=== PATIENT | female | born 1965 | race African-American/Black ===

== ENCOUNTER → 2016-12-19 | Day surgery (SDC) | payer OTHER ==
[2016-12-18 09:07] VITALS: BMI 25.0
[~2016-12-19] MED LIST: FLU VACC QS2017-18 36 mo. & older 0.5 ML SYRINGE IM ONE; Iopamidol 300 61% 100 ML VIAL FS ONE
[2016-12-19 08:14] VITALS: BP 144/101; TEMP 97
--- NOTE | 2016-12-19 10:33 | SPC ---
PROCEDURE: 1. Left upper extremity fistulogram. 2. Left upper extremity venogram with superior vena cavogram. INDICATIONS: Nonmaturing left dialysis fistula. FINDINGS: 1. Ultrasound was utilized to assess left upper extremity fistula. [place] fistula is seen with anas tomosis at the elbow into the brachial artery. The anastomosis is identified with ultrasound. The ve nous side just above the anastomosis was puncture under local anesthesia with micropuncture techniqu e. A 4 [place] catheter was introducer. Fistulogram was then obtained by injecting through this clay ter. Venous outflow drains into a large cephalic vein. Just above the arterial anastomosis, there is a la rge branching venous structure which is stealing outflow from the venous side and is probably inhibi ting adequate maturation. The major cephalic outflow is unremarkable in the mid humerus. The cephalic vein does bifurcate at t he humeral head and both limbs feed into the subclavian vein. The subclavian, innominate, and SVC ar e patent. The arterial anastomosis was imaged with compression and reflux. The anastomosis appears unremarkabl e. IMPRESSION: [place] fistula with cephalic vein arterial anastomosis at the brachial artery. Just above the arteri al anastomosis, a large vein arises from the venous outflow and is probably inhibiting adequate matu ration. PROCEDURE NOTE: The left upper extremity was prepped and draped in a sterile manner. The fistula was evaluated with ultrasound. Under local anesthesia, venous outflow was punctured under ultrasound guided with microp uncture technique. A 4 [place] catheter was introduced. Fistulogram and vena cavogram were obtained b y injecting through this catheter. There were no problems or complications. POS: [facility]
== END ==
LOC: SPEC 06:51
PROVIDERS: ATTEND Specialist
DX: I12.0 Hypertensive chronic kidney disease with stage 5 chronic kidney disease or end stage renal disease (principal); N18.6 End stage renal disease; M32.9 Systemic lupus erythematosus, unspecified; Z79.52 Long term (current) use of systemic steroids; Z79.899 Other long term (current) drug therapy; Z88.8 Allergy status to other drugs, medicaments and biological substances; Z99.2 Dependence on renal dialysis; Z90.49 Acquired absence of other specified parts of digestive tract; Z87.891 Personal history of nicotine dependence
CPT/HCPCS: 36901

== ENCOUNTER 2017-01-28 09:11 | Day surgery (SDC) | payer OTHER ==
--- NOTE | 2017-01-21 14:15 | HP ---
HISTORY OF PRESENT ILLNESS: Vivian Bearden is a 51-year-old black female dialyzes Friday, Friday, and Friday, 10:15 a.m. at [facility]. Patient on 05/13/2016 had a right upper arm d ialysis graft and on 05/27/2016, hemodialysis catheter initiating dialysis. On , her dialys is graft was noted to be thrombosed and a temporary femoral vein catheter placed to initiate dialysis . On 11/04/2016, she underwent placement of left IJ hemodialysis catheter as her right internal jugu lar vein outflow was occluded. She had a left arm primary fistula, inflow proximal radial artery, ou tflow cephalic vein calibrated 3.5 coronary dilator. At that operation, she was noted to have a bifu rcated cephalic vein. Retrograde antecubital vein preserved, but was fibrotic. She had communicatio n to the basilic vein, but this is secondary. The patient's fistula was not maturing as expected. S joey underwent a fistulogram on 12/19/2016 noting a bifurcated cephalic vein above the antecubital andres a. From one of the branches, she had a communicating branch to the axilla. The cephalic vein was, h owever, look good. They have tried to access her fistula unsuccessfully. Plan at this time is to un hilda regional anesthesia and block versus general anesthesia versus IV sedation local plan intraoperat geoff angiograms. Identification of the collateral cephalic vein branch above the anal fossa and ligat ion of this to facilitate maturation of the fistula. Risks and benefits explained. She consents. S joey continues to dialyze through her left IJ cuffed tunnel dialysis catheter. ALLERGIES: HUANG INHIBITORS, CLONIDINE. TOBACCO: None. ALCOHOL: None. MEDICATIONS: Tramadol, prednisone, hydralazine, nifedipine, ferrous sulfate, Coreg, Calcitriol, ator vastatin, amlodipine. PAST SURGICAL HISTORY: As noted above, dialysis access appendectomy in addition. 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 Patient fibrotic ant ecubital vein left secondary to prior access. REVIEW OF SYSTEMS: Ten point noncontributory. PHYSICAL EXAMINATION: VITAL SIGNS: 135 pounds, 57 inches, BMI 29.25, 170/96, heart rate 79, 96.8 degrees. HEENT: Unremarkable. LUNGS: Clear to auscultation. CARDIAC: Regular rate and rhythm without murmur or gallop. ABDOMEN: Soft, nontender. EXTREMITIES: Left arm fistula, good thrill and bruit. ASSESSMENT AND PLAN: 1. Dysfunctional fistula left arm, failure to mature. Will plan intraoperative angiograms and ligat ion of collaterals to facilitate maturation. She understands the risks and benefits and consents. Rowena roberts is to do as an outpatient next week. 2. Lupus. 3. Hypertension.
[2017-01-27 12:30] VITALS: BMI 29.2
[2017-01-28] MEDS ORDERED: CEFAZOLIN/Water 2 GM/20 ML SYRINGE ONE (09:50)
[2017-01-28 10:06] LABS: #Eosinphils 0.1 thou/uL (0.0-0.7); #Monocytes 0.4 thou/uL (0.11-0.59); #Neutrophils 3.6 thou/uL (1.40-6.50); %Basophils 0.4 % (0.0-1.0); %Eosinophils 2.3 % (0.0-10.0); %Lymphocytes 19.9 % (21.0-51.0); %Monocytes 8.2 % (0.0-10.0); Hematocrit 36.7 % (36.0-47.0); Mean Platelet Volume 8.4 fL (7.4-10.4); Red Blood Cell (RBC) Count 4.04 mill/uL (4.20-5.40); White Blood Cell (WBC) Count 5.2 thou/uL (4.8-10.8)
[2017-01-28] MEDS ORDERED: Fentanyl 100 MCG/2 ML VIAL ONE ×2 (10:18→13:33)
[2017-01-28] MEDS ORDERED: Midazolam HCl 2 mg/2 ml Vial ONE ×2 (10:18→13:33)
[2017-01-28 10:19] LABS: Anion Gap 13 mmol/L (10-20); BUN (Urea Nitrogen) 29 mg/dL (7.0-18.7); Calc. Creatinine Clearance 13 mL/min (70-130); Calcium 8.7 mg/dL (7.8-10.44); Carbon Dioxide 25 mmol/L (22-29); Chloride 102 mmol/L (98-107); Estimated GFR-MDRD 11
[2017-01-28] MEDS ORDERED: Ioversol 68 % 50 ML VIAL ONE (13:00)
[2017-01-28] MEDS ORDERED: Bupivacaine/Epinephrine 0.25% 30 ML VIAL ONE (13:00)
[2017-01-28] MEDS ORDERED: Heparin 10,000 UNITS/1 ML VIAL ONE (13:00)
[2017-01-28] MEDS ORDERED: Protamine Sulfate 50 MG/5 ML VIAL ONE (13:00)
[2017-01-28] MEDS ORDERED: Heparin 5,000 UNITS/ML VIAL ONE (13:00)
[2017-01-28] MEDS ORDERED: Sodium Chloride 0.9% 0 ML ONE (13:01)
[2017-01-28] MEDS ORDERED: Lidocaine 2% w/Epinephrine 1:200K 20 ML VIAL ONE ×2 (13:31→13:32)
[2017-01-28] MEDS ORDERED: Heparin 10,000 UNITS/ 10 ML VIAL ONE ×2 (15:35)
[2017-01-28] MEDS ORDERED: Bupivacaine HCl 0.5%/Epinephrine 1:200,000/PF 30 ml Vial ONE (16:26)
[2017-01-28] MEDS ORDERED: Bupivacaine PF 0.5% 30 ML VIAL ONE (16:26)
[2017-01-28] MEDS ORDERED: Propofol 200 MG/20 ML VIAL ONE (16:51)
[2017-01-28] MEDS ORDERED: Lidocaine 1% PF 5 ML VIAL ONE (16:51)
--- NOTE | 2017-01-28 17:08 | OP ---
PREOPERATIVE DIAGNOSIS: End-stage renal disease, malfunction left arm dialysis fistula. POSTOPERATIVE DIAGNOSIS: End-stage renal disease, malfunction left arm dialysis fistula. PROCEDURE: Revision of left arm dialysis fistula with ligation of collaterals and transposition of f istula laterally. Ligation of basilic vein outflow (small caliber). SURGEON: Dr. Satish Hancock. ANESTHESIA: Regional TIVA. PROCEDURE IN DETAIL: The patient was taken to the operating room where under intravenous sedation an d left arm regional anesthesia, left upper extremity was prepared with chloraprep, draped in routine fashion. Incision made from the proximal forearm up over the left upper arm carried down through the skin and subcutaneous tissue and the cephalic vein dissected free. The large branch seen on angiogr am was dissected free and laterally was ligated and divided between 2-0 silk ties. Smaller branches divided between 4-0 silk ties and clips. Basilic vein outflow seen to be small and it was ligated an d divided between 2-0 silk ties. A subcutaneous pocket created laterally to resolve tortuosity of th e cephalic vein. The vein was placed laterally in this pocket and held in place with interrupted sut ures between subcutaneous tissues anteriorly and deep of 3-0 Monocryl. Good hemostasis noted. Subcu taneous tissues approximated with 3-0 Monocryl, skin with subdermal 4-0 Monocryl and DermaGlue applie d. Henok wrap applied. The patient tolerated the procedure well.
== END 2017-01-28 15:51 | disposition home or self-care (01) ==
LOC: SDC 09:11
PROVIDERS: ATTEND Specialist
PROC: [UNRECOGNIZED PROCEDURE] (principal; 2017-01-28)
DX: T82.590D Other mechanical complication of surgically created arteriovenous fistula, subsequent encounter (principal); I12.0 Hypertensive chronic kidney disease with stage 5 chronic kidney disease or end stage renal disease; N18.6 End stage renal disease; M32.9 Systemic lupus erythematosus, unspecified; J45.909 Unspecified asthma, uncomplicated; E78.5 Hyperlipidemia, unspecified; M19.90 Unspecified osteoarthritis, unspecified site; Z99.2 Dependence on renal dialysis; Z79.891 Long term (current) use of opiate analgesic; Z79.818 Long term (current) use of other agents affecting estrogen receptors and estrogen levels; Z79.1 Long term (current) use of non-steroidal anti-inflammatories (NSAID); Z79.51 Long term (current) use of inhaled steroids; Z79.899 Other long term (current) drug therapy
CPT/HCPCS: 80048; 85025; A4216; J0670; J1644; J2001; J2250; J2704; J2720; J3010; Q9967; S0020

== ENCOUNTER 2017-02-25 12:41 | Emergency (ER) | payer OTHER ==
--- NOTE | 2017-02-25 14:56 | RAD ---
TWO VIEW CHEST: INDICATIONS: Flu-like symptoms. Cough. FINDINGS: A tunneled vascular catheter is present with the tip overlying the right atrium. There is no consoli dation or effusion. The cardiac silhouette is within normal limits in size. The osseous structures are intact. IMPRESSION: No focal consolidation. POS: [facility]
== END 2017-02-25 14:30 | disposition home or self-care (01) ==
LOC: ERS 12:41
DX: J20.9 Acute bronchitis, unspecified (principal); I10 Essential (primary) hypertension; J45.909 Unspecified asthma, uncomplicated; Z87.891 Personal history of nicotine dependence; Z79.899 Other long term (current) drug therapy
CPT/HCPCS: 71046; 87081; 87430; 87804

== ENCOUNTER 2017-04-09 10:05 | Emergency (ER) | payer OTHER ==
[2017-04-09 12:11] LABS: #Eosinphils 0.1 thou/uL (0.0-0.7); #Lymphocytes 1.2 thou/uL (1.20-3.40); #Monocytes 0.6 thou/uL (0.11-0.59); #Neutrophils 2.1 thou/uL (1.40-6.50); %Basophils 0.4 % (0.0-1.0); %Eosinophils 2.4 % (0.0-10.0); %Lymphocytes 31.2 % (21.0-51.0); Hemoglobin 12.9 g/dL (12.0-16.0); Mean Corpuscular HGB CONC 31.5 g/dL (32.0-36.0); Mean Corpuscular Hemoglobin 28.9 pg (27.0-31.0); Mean Corpuscular Volume 91.9 fl (81.0-99.0); Mean Platelet Volume 8.5 fL (7.4-10.4); Platelet Count 248 thou/uL (130-400); Red Blood Cell (RBC) Count 4.48 mill/uL (4.20-5.40)
[2017-04-09 13:00] LABS: ALT (SGPT) 15 U/L (8-55); AST (SGOT) 17 U/L (5-34); Albumin 3.2 g/dL (3.5-5.0); Alkaline Phosphatase 94 U/L (40-150); Anion Gap 16 mmol/L (10-20); BUN (Urea Nitrogen) 47 mg/dL (9.8-20.1); Bilirubin, Total 0.4 mg/dL (0.2-1.2); Calc. Creatinine Clearance 0 mL/min (70-130); Calcium 8.9 mg/dL (7.8-10.44); Carbon Dioxide 24 mmol/L (22-29); Chloride 101 mmol/L (98-107); Estimated GFR-MDRD 10; Globulin 5.1 g/dL (2.4-3.5); Glucose 80 mg/dL (70-105); Potassium 3.9 mmol/L (3.5-5.1); Protein, Total 8.3 g/dL (6.0-8.3); Sodium 137 mmol/L (136-145)
[2017-04-09] MEDS ORDERED: traMADol HCl 50 MG TAB ONE (15:57)
== END 2017-04-09 16:40 | disposition home or self-care (01) ==
LOC: ERS 10:05
DX: K43.9 Ventral hernia without obstruction or gangrene (principal); I10 Essential (primary) hypertension; J45.909 Unspecified asthma, uncomplicated; Z87.891 Personal history of nicotine dependence
CPT/HCPCS: 80053; 85025; 99284

== ENCOUNTER 2017-12-19 22:02 | Emergency (ER) | payer OTHER ==
[2017-12-19] MEDS ORDERED: Meclizine HCl 25 MG TAB ONE (22:18)
--- NOTE | 2017-12-19 22:32 | RAD ---
CHEST ONE VIEW: 12/19/17 HISTORY: Dizziness. Dyspnea. COMPARISON: 11/04/16. FINDINGS: The cardiac silhouette is magnified by projection. Pulmonary vasculature is unremarkable. Mediastinum is midline. No confluent air space consolidation or evidence of pneumothorax. IMPRESSION: No active cardiopulmonary abnormalities are demonstrated. POS: [facility]
[2017-12-19 22:37] LABS: #Eosinphils 0.1 thou/uL (0.0-0.7); #Lymphocytes 0.9 thou/uL (1.20-3.40); #Monocytes 0.6 thou/uL (0.11-0.59); #Neutrophils 3.7 thou/uL (1.40-6.50); %Basophils 0.1 % (0.0-1.0); %Eosinophils 1.7 % (0.0-10.0); %Lymphocytes 16.3 % (21.0-51.0); %Monocytes 11.5 % (0.0-10.0); %Neutrophils 70.4 % (42.0-75.0); Hemoglobin 12.6 g/dL (12.0-16.0); Mean Corpuscular Volume 93.9 fL (78.0-98.0); Platelet Count 219 thou/uL (130-400); RBC Distribution Width 14.3 % (11.5-14.5); Red Blood Cell (RBC) Count 4.21 mill/uL (4.20-5.40); White Blood Cell (WBC) Count 5.3 thou/uL (4.8-10.8)
--- NOTE | 2017-12-19 22:50 | CT ---
CT HEAD NONCONTRAST: 12/19/17 HISTORY: Headaches. COMPARISON: 03/12/16. FINDINGS: There is no evidence of acute intracranial hemorrhage or infarct. Old lacunar infarcts left basal godwin glia and periventricular white matter. There is no mass effect or shift of midline structures. IMPRESSION: Chronic type findings are stable. No acute intracranial abnormalities are demonstrated. POS: [facility]
[2017-12-19 22:57] LABS: ALT (SGPT) 26 U/L (8-55); AST (SGOT) 17 U/L (5-34); Albumin 3.5 g/dL (3.5-5.0); Alkaline Phosphatase 98 U/L (40-150); Anion Gap 14 mmol/L (10-20); BUN (Urea Nitrogen) 29 mg/dL (9.8-20.1); Bilirubin, Total 0.3 mg/dL (0.2-1.2); CK (CPK) 53 U/L (29-168); Calc. Creatinine Clearance 0 mL/min (70-130); Calcium 7.9 mg/dL (7.8-10.44); Carbon Dioxide 27 mmol/L (22-29); Chloride 102 mmol/L (98-107); Estimated GFR-MDRD 13; Globulin 3.8 g/dL (2.4-3.5); Glucose 98 mg/dL (70-105); Potassium 3.9 mmol/L (3.5-5.1); Protein, Total 7.3 g/dL (6.0-8.3); Sodium 139 mmol/L (136-145)
[2017-12-19 23:02] LABS: CKMB 1.7 ng/mL (0-6.6); Troponin I 0.014 ng/mL (< 0.028)
== END 2017-12-19 23:42 | disposition home or self-care (01) ==
LOC: ERS 22:02
DX: R42 Dizziness and giddiness (principal); J45.909 Unspecified asthma, uncomplicated; I10 Essential (primary) hypertension; F17.210 Nicotine dependence, cigarettes, uncomplicated
CPT/HCPCS: 70450; 71045; 80053; 82550; 82553; 84484; 85025; 93005

== ENCOUNTER 2018-01-21 09:11 | Inpatient (IN) | payer OTHER ==
[2018-01-21] MEDS ORDERED: traMADol HCl 50 MG TAB ONE (11:16)
--- NOTE | 2018-01-21 11:37 | RAD ---
AP CHEST: Indications: Cough. FINDINGS: There is question of hazy infiltrate in the right lower lung on this AP projection. There is no confl uent consolidation. No effusion. Heart and mediastinum unremarkable. IMPRESSION: Question hazy right lower lung infiltrate. Follow up suggested. POS: [facility]
[2018-01-21] MEDS ORDERED: Piperacillin/Tazobactam 4.5 GM VIAL ONE (14:24)
--- NOTE | 2018-01-21 15:18 | CT ---
CT ABDOMEN AND PELVIS WITH IV CONTRAST: Date: 01/21/18 HISTORY: Abdominal pain. FINDINGS: Comparison made with exam of 12/25/15. The lung bases are clear. The liver demonstrates decreased attenuation compared to the spleen, consistent with fatty infiltrati on. A tiny focus of hyperintensity is seen on the arterial phase and the right lobe of the liver, lik felisa flash-filling hemangioma. No calcified gallstones are seen. There is edema in the gallbladder wal l. The spleen, pancreas, adrenal glands, and kidneys are normal. Perirenal inflammatory changes are a gain seen, as on the previous study. A small, fat-containing upper abdominal wall hernia is noted. Th ere are vascular calcifications without evidence of aneurysmal dilatation of the abdominal aorta. The abdominal aorta is well opacified without evidence of dissection. No free air is seen. There is a sm all amount of free fluid in the pelvis. Uterus and ovaries are present. The small bowel loops are not abnormally dilated. Degenerative changes are present in the spine. IMPRESSION: 1. Fatty liver. 2. Probable gallbladder wall thickening versus edema. Evaluation with ultrasound is recommended. 3. Small amount of free fluid in the pelvis. POS: [facility]
[2018-01-21 15:43] LABS: Hemoglobin 13.2 g/dL (12.0-16.0); Mean Corpuscular HGB CONC 30.8 g/dL (32.0-36.0); Mean Corpuscular Hemoglobin 29.7 pg (27.0-31.0); Mean Corpuscular Volume 96.6 fL (78.0-98.0); Mean Platelet Volume 8.5 fL (7.4-10.4); Platelet Count 216 thou/uL (130-400); RBC Distribution Width 14.3 % (11.5-14.5); Red Blood Cell (RBC) Count 4.45 mill/uL (4.20-5.40); White Blood Cell (WBC) Count 4.2 thou/uL (4.8-10.8)
[2018-01-21 15:58] LABS: ALT (SGPT) 25 U/L (8-55); AST (SGOT) 24 U/L (5-34); Albumin 3.4 g/dL (3.5-5.0); Alkaline Phosphatase 92 U/L (40-150); Anion Gap 16 mmol/L (10-20); BUN (Urea Nitrogen) 45 mg/dL (9.8-20.1); Bilirubin, Total 0.6 mg/dL (0.2-1.2); Calc. Creatinine Clearance 0 mL/min (70-130); Calcium 8.6 mg/dL (7.8-10.44); Carbon Dioxide 22 mmol/L (22-29); Chloride 102 mmol/L (98-107); Estimated GFR-MDRD 9; Globulin 3.9 g/dL (2.4-3.5); Glucose 81 mg/dL (70-105); Lipase 30 U/L (8-78); Potassium 4.4 mmol/L (3.5-5.1); Protein, Total 7.3 g/dL (6.0-8.3); Sodium 136 mmol/L (136-145)
[2018-01-21 16:10] LABS: Band 1 % (5-11); Eosinophils 5 % (0-10); Lymphocytes 26 % (21-51); MDiff Complete? YES; Monocytes 12 % (0-10); Neutrophil 55 % (42-75); PLT Morphology Comment Appears Adequate; RBC Morphology Normal; Reactive Lymphocytes 1 % (0-10)
[2018-01-21] MEDS ORDERED: ISOVUE-370 76%-LOCM 1 ML ONE (16:46)
[2018-01-21 17:04] LABS: HBSAg Index 0.23 S/CO (0-0.99); Hep B Surf Ag Non-Reactive S/CO (NonReactive)
[2018-01-21] MEDS ORDERED: Water For Inject, Bacteriostat 30 ML ONE (17:38)
[2018-01-21] MEDS ORDERED: methylPREDNISolone Sod Succ/PF 125 MG/2 ML VIAL ONE (17:38)
--- NOTE | 2018-01-21 17:54 | ULT ---
RIGHT UPPER QUADRANT ULTRASOUND: 01/21/18 PROVIDED CLINICAL HISTORY: Abdominal pain, question gallbladder abnormality on recent CT. FINDINGS: Comparison is made with the study performed earlier same date. The liver demonstrates no evidence for mass or intrahepatic biliary ductal dilatation. The common jimi t is mildly prominent measuring about 7 mm. The gallbladder demonstrates a diffusely thickened wall m easuring up to about 6 mm. There is no evidence for stones or pericholecystic fluid. The presence or absence of a sonographic Reis's sign is not indicated by the test technician. The right kidney demonstrates no evidence for hydronephrosis or mass. The visualized IVC and pancreas appear normal. IMPRESSION: 1. Nonspecific gallbladder wall thickening. No evidence for gallstones or pericholecystic fluid. If there is concern for acalculous cholecystitis, consider HIDA scan. 2. Mild prominence of the common duct. Correlate with laboratory values. POS: [facility]
[2018-01-21] MEDS ORDERED: Acetaminophen 325 MG TAB PO PRN (20:24)
[2018-01-21] MEDS ORDERED: Ondansetron PF 4 MG/2 ML Vial IVP PRN (20:24)
[2018-01-21] MEDS ORDERED: Ondansetron ODT 4 MG TAB SL PRN (20:24)
[2018-01-21 22:26] VITALS: BMI 28.6
[2018-01-21] MEDS ORDERED: HYDROcodone/Acetaminophen 10/325 mg Tablet PO PRN (22:59)
[2018-01-21] MEDS: Sodium Chloride 0.9% 1,000 ML IV SCH (23:48)
[2018-01-22 04:48] LABS: #Lymphocytes 0.5 thou/uL (1.20-3.40); #Monocytes 0.1 thou/uL (0.11-0.59); #Neutrophils 3.8 thou/uL (1.40-6.50); %Basophils 0.1 % (0.0-1.0); %Eosinophils 0.4 % (0.0-10.0); %Lymphocytes 11.4 % (21.0-51.0); %Monocytes 2.9 % (0.0-10.0); %Neutrophils 85.1 % (42.0-75.0); Hemoglobin 13.4 g/dL (12.0-16.0); Mean Corpuscular HGB CONC 32.3 g/dL (32.0-36.0); Mean Corpuscular Hemoglobin 30.4 pg (27.0-31.0); Mean Corpuscular Volume 94.2 fL (78.0-98.0); Mean Platelet Volume 8.5 fL (7.4-10.4); Platelet Count 226 thou/uL (130-400); RBC Distribution Width 14.1 % (11.5-14.5); Red Blood Cell (RBC) Count 4.41 mill/uL (4.20-5.40); White Blood Cell (WBC) Count 4.5 thou/uL (4.8-10.8)
[2018-01-22 05:01] LABS: Anion Gap 19 mmol/L (10-20); BUN (Urea Nitrogen) 26 mg/dL (9.8-20.1); Calc. Creatinine Clearance 16 mL/min (70-130); Calcium 9.2 mg/dL (7.8-10.44); Carbon Dioxide 23 mmol/L (22-29); Chloride 97 mmol/L (98-107); Estimated GFR-MDRD 14; Glucose 128 mg/dL (70-105); Potassium 3.7 mmol/L (3.5-5.1); Sodium 135 mmol/L (136-145)
[2018-01-22] MEDS ORDERED: Azithromycin 500 MG in Sodium Chloride 0.9% 250 ML 250 ML IVPB SCH (06:00)
[2018-01-22] MEDS: hydrALAZINE 25 MG TAB PO SCH ×3 (08:06→20:52)
[2018-01-22] MEDS: predniSONE 5 MG TAB PO SCH (08:07)
[2018-01-22] MEDS: Famotidine 20 MG TAB PO SCH (08:07)
[2018-01-22] MEDS: Famotidine/PF 20 mg/2ml Vial SLOW IVP SCH (08:08)
[2018-01-22] MEDS ORDERED: cefTRIAXone\\ROCEPHIN 1 GM in Sodium Chloride 0.9% 100 ML IVPB SCH (09:00)
--- NOTE | 2018-01-22 10:40 | HP ---
CHIEF COMPLAINT: Right lower quadrant abdominal pain. HISTORY OF PRESENT ILLNESS: The patient is a 52-year-old female with a past medical history of lupus, hypertension, asthma, end-stage renal disease, on dialysis Friday, Friday and Friday, presenting with right lower quadrant abdominal pain, which has been ongoing for a couple of days. The patient states that she has a hernia and she is being seen by her primary care physician for hernia. She started to develop a cough and the cough is described as productive in nature. The patient also is complaining of associated nasal congestion and sore throat. The patient denies nausea, vomiting, chest pain, palpitation, constipation, or diarrhea. However, the patient endorses 7/10 right lower quadrant abdominal pain that is constant. REVIEW OF SYSTEMS: Positive for cough, abdominal pain, and hernia, otherwise as documented in the HPI. All other systems were reviewed and are negative. PAST MEDICAL HISTORY: 1. Lupus. 2. Asthma. 3. Hypertension. 4. Renal insufficiency, on dialysis, Friday, Friday, and Friday. FAMILY HISTORY: Reviewed and noncontributory. PAST SURGICAL HISTORY: 1. The patient has right upper extremity fistula. 2. Surgery for . 3. Appendectomy. PSYCHIATRIC HISTORY: No psych history. SOCIAL HISTORY: The patient denies alcohol use. The patient is a former drug user, patient abused cocaine. The patient is a former tobacco user, patient smoked more cigarettes. The patient states that she quit about a year ago. Lives at home with mother. ALLERGIES: HUANG INHIBITORS AND CLONIDINE. PHYSICAL EXAMINATION: VITAL SIGNS: Blood pressure 147/108, pulse 74, respiratory rate of 20, O2 saturation is 93% on room air. GENERAL: The patient is alert and oriented x3, not in acute distress. The patient is able to speak in full sentences. HEENT: Normocephalic and atraumatic. Pupils are equally round and reactive to light. Extraocular movements are intact. No scleral icterus. Mucous membranes are moist. NECK: No JVD. Trachea is midline. Full range of motion. LUNGS: Diffuse coarse breath sounds appreciated at the anterior lung walsh. No wheezing, no rales appreciated. CARDIAC: Positive S1 and S2. Regular rate and rhythm. No murmurs, no gallops, no rubs appreciated. ABDOMEN: Hernia appreciated in the abdomen with tenderness to palpation. Abdomen is soft. Positive bowel sounds in all quadrants. No ecchymosis. No erythema noted. EXTREMITIES: 5/5 upper extremity strength, 5/5 lower extremity strength. Good pulses bilaterally in the upper extremities and lower extremities. The patient do have a right upper extremity fistula. NEUROLOGIC: Cranial nerves 2 through 12 grossly intact. No neurologic deficits noted. SKIN: Warm, dry, and intact. PSYCHIATRIC: The patient has normal affect. IMAGING STUDIES: Radiographs: The patient has right lower lung infiltrates that is seen on chest x-ray. From abdominal and pelvis CT, there is a fatty liver, probable gallbladder wall thickening versus edema. Evaluation with ultrasound is recommended. Small amount of free fluid in the pelvis. Abdominal ultrasound showed 7 mm common bile duct, no gallstones, 6 mm gallbladder wall, no pericholecystic fluid. LABORATORY DATA: WBC is 4.2, hemoglobin is 13.2, hematocrit is 43.0, RDW is 14.3. Sodium of 136, potassium is 4.6, chloride is 102, carbon dioxide of 22, anion gap of 15, BUN is 45, creatinine is 5.72. ASSESSMENT AND PLAN: This is a 52-year-old female, being admitted for; 1. Right lower quadrant abdominal pain, likely due to cholelithiasis versus cholecystitis. At this point, right upper quadrant ultrasound had been obtained, which is negative for cholecystitis. However, per Radiology read, the patient will benefit from a HIDA scan. At this point, we are going to admit the patient to the hospital. We are going to get GI consult and make the patient n.p.o. for possible HIDA scan in the a.m. We will follow up on the results. 2. Productive cough, likely due to community-acquired pneumonia. At this point, x-ray shows some infiltrates. We will start the patient on azithromycin and Rocephin, we will continue these medications. We will follow up ammonia labs. We will continue to manage the patient. 3. End-stage renal disease, on hemodialysis, Friday, Friday, and Friday. We will continue the patient on her dialysis regimen. We will continue to monitor the patient closely. 4. History of lupus. Currently, the patient does not have any lupus flare. We will continue the patient on her home regimen. 5. Deep vein thrombosis and gastrointestinal prophylaxis. Job ID: [id number]
--- NOTE | 2018-01-22 14:12 | CON ---
DATE OF CONSULTATION: 01/21/2018 CONSULTING PHYSICIAN: Jeff To MD REASON FOR CONSULTATION: End-stage renal disease evaluation. REASON FOR ADMISSION: Cough. HISTORY OF PRESENT ILLNESS: This is a 52-year-old female with a history of end-stage renal disease, on hemodialysis Friday, Friday, and Friday; lupus; hyperlipidemia; hypertension; who came to the hospital with cough and was found to have pneumonia and getting admitted. Nephrology consult to make sure patient as he gets dialysis Friday, Friday, and Friday; missed dialysis today. PAST MEDICAL HISTORY: Positive for end-stage renal disease, on hemodialysis; lupus; hypertension; hyperlipidemia; congestive heart failure; CVA. PAST SURGICAL HISTORY: AV fistula placement, kidney biopsy, , and appendectomy. HOME MEDICATIONS: List needs to be reviewed. ALLERGIES: TO CLONIDINE AND HUANG INHIBITORS. SOCIAL HISTORY: History of substance abuse in the past. No smoking or alcohol abuse reported. FAMILY HISTORY: No history of any kidney disease. REVIEW OF SYSTEMS: REVIEW OF SYSTEMS: The following complete review of systems was negative, unless otherwise mentioned in the HPI or below: Constitutional: Weight loss or gain, ability to conduct usual activities. Skin: Rash, itching. Eyes: Double vision, pain. ENT/Mouth: Nose bleeding, neck stiffness, pain, tenderness. Cardiovascular: Palpitations, dyspnea on exertion, orthopnea. Respiratory: Shortness of breath, wheezing, cough, hemoptysis,fever or night sweats. Gastrointestinal: Poor appetite, abdominal pain, heartburn, nausea, vomiting, constipation, or diarrhea. Genitourinary: Urgency, frequency, dysuria, nocturia. Musculoskeletal: Pain, swelling. Neurologic/Psychiatric: Anxiety, depression. Allergy/Immunologic: Skin rash, bleeding tendency. PHYSICAL EXAMINATION GENERAL: Reveals a well-developed female, in no apparent distress. VITAL SIGNS: Temperature 98.8, pulse 84, respirations 18, and blood pressure 128/80. HEENT: Atraumatic and normocephalic. Oral mucosa is moist. NECK: Supple. CARDIOVASCULAR: S1 and S2. Heart rate and rhythm are regular. RESPIRATORY: Clear. GASTROINTESTINAL: Abdomen is soft. MUSCULOSKELETAL: . DERMATOLOGIC: No rash. NEUROLOGIC: Alert and awake. PSYCHIATRIC: Mood and affect normal. LABORATORY DATA: Hemoglobin is 7.2. Potassium is 4.4, BUN is 45, and creatinine is 5.7. ASSESSMENT: 1. End-stage renal disease. Continue hemodialysis as tolerated. 2. Edema, controlled. 3. Hypertension. 4. History of lupus. 5. Anemia, stable. PLAN: Continue on hemodialysis Friday, Friday, Friday. Job ID: [id number]
--- NOTE | 2018-01-22 14:24 | PDOC.PN ---
- Subjective Encounter Start Date: 01/22/18 Encounter Start Time: 14:20 Subjective: f/u for abd pain likely related to abd wall hernia reduced in ED. Some -: pain in the abd when touched, requesting to eat currently. Received -: HD 01/21/18. - Objective Resuscitation Status - Order Detail: 01/21/18 22:56 Resuscitation Status Routine Resuscitation Status: FULL: Full Resuscitation MAR Reviewed: Yes Vital Signs & Weight: Vital Signs (12 hours) Temp Pulse Resp BP BP Pulse Ox 01/22/18 11:30 97.5 F L 77 22 H 155/112 H 93 L 01/22/18 08:06 83 141/105 H 01/22/18 08:00 97.5 F L 83 18 141/105 H 99 01/22/18 04:00 98.2 F 80 16 145/94 H 92 L Weight Weight 132 lb 4.438 oz I&O: 01/21/18 01/22/18 01/23/18 06:59 06:59 06:59 Intake Total 600 Balance 600 Result Diagrams: 01/22/18 03:55 01/22/18 03:55 Additional Labs: Microbiology 01/21/18 14:27 Venous blood - Right Arm Blood Culture - Preliminary Specimen has been received and culture in progress. No Growth to date. 01/21/18 14:04 Venous blood - Right Hand Blood Culture - Preliminary Specimen has been received and culture in progress. No Growth to date. Laboratory Tests 01/21/18 01/21/18 01/21/18 13:44 13:44 13:44 BUN 45 H Creatinine 5.72 H Lactic Acid 1.8 Hep Bs Antigen Non-Reactive Radiology Reviewed by me: Yes (CT abd/pel - no acute process) Phys Exam - Physical Examination Constitutional: NAD HEENT: PERRLA, sclera anicteric, oral pharynx no lesions Neck: no nodes, no JVD, supple, full ROM Respiratory: no wheezing, no rales, no rhonchi, clear to auscultation bilateral S1, S2 Cardiovascular: RRR, no significant murmur, no rub, gallop mild TTP in midline, + abd wall hernia, reducible Gastrointestinal: soft, no distention, positive bowel sounds Musculoskeletal: no edema, pulses present Neurological: normal sensation, moves all 4 limbs Psychiatric: A&O x 3 Skin: normal turgor, cap refill <2 seconds Dx/Plan (1) Abdominal pain Code(s): R10.9 - UNSPECIFIED ABDOMINAL PAIN Status: Acute Qualifiers: Abdominal location: periumbilical Qualified Code(s): R10.33 - Periumbilical pain Comment: Secondary to abd wall hernia, supportive mgmt (2) Abdominal wall hernia Status: Chronic Comment: Chronic, Gen Surgery consulted, likely will need non- urgent hernia repair (3) ESRD (end stage renal disease) on dialysis Code(s): N18.6 - END STAGE RENAL DISEASE; Z99.2 - DEPENDENCE ON RENAL DIALYSIS Status: Chronic Comment: HD on M/W/F (4) Volume overload Code(s): E87.70 - FLUID OVERLOAD, UNSPECIFIED Status: Acute Comment: Likely due to ESRD, improved after HD - Plan plan discussed w/ family, social science manager, out of bed/ambulate, DVT proph w/SCDs Stable currently -: Saline lock IVF -: D/C Zithromax/Rocephin -: HD per Renal service -: Gen surgery consult appreciated, hernia repair in next 24-48h * AM lab: BMP
[2018-01-22] MEDS: Sodium Chloride 0.9% 1,000 ML IV SCH (18:32)
--- NOTE | 2018-01-22 22:37 | CON ---
DATE OF CONSULTATION: TYPE OF CONSULTATION: General Surgery CHIEF COMPLAINT: Painful abdominal wall bulge. HISTORY OF PRESENT ILLNESS: This is a 52-year-old female with a 40-year history of a bulge in her upper abdomen, slowly enlarging. Over the past few days, it seem to be getting worse, especially when eating and having bowel movements. PAST MEDICAL HISTORY: Renal failure, on dialysis; hypertension; lupus; asthma. MEDICATIONS: Include, 1. Torsemide 100 daily. 2. Hydrocodone p.r.n. 3. Lasix 40 b.i.d. 4. Prednisone 5 daily. 5. Hydralazine 100 t.i.d. ALLERGIES: SHE HAS AN ALLERGY TO CLONIDINE AND HUANG INHIBITORS. SOCIAL HISTORY: She lives with her daughter. She is disabled. No tobacco or alcohol, but she is a former cocaine abuser. FAMILY HISTORY: Diabetes, hypertension. PHYSICAL EXAMINATION: VITAL SIGNS: Temperature 97.5, pulse 77, blood pressure 155/112. GENERAL: Elderly female, looks older than stated age. HEENT: Otherwise unremarkable. LUNGS: Clear. HEART: Regular rate and rhythm. ABDOMEN: Soft. She has a reducible epigastric hernia. EXTREMITIES: Unremarkable. She does have a dialysis access fistula in the left arm and an old one in the right side that is not working. LABORATORY DATA: White count 4.5, H and H 13 and 41, platelet count 226. Electrolytes are fine. CT shows a small fat containing abdominal wall hernia, no obstruction. Chest x-ray shows hazy right lower lobe infiltrate. Ultrasound of the gallbladder shows some mild wall thickening, no gallstones. ASSESSMENT: Epigastric ventral hernia, not emergent for repair. PLAN: I feel like she at some point needs to have this repaired, but she needs to get over her pneumonia and her renal problems and then it could be repaired electively. Job ID: [id number]
--- NOTE | 2018-01-23 00:30 | PRG ---
DATE OF SERVICE: 01/22/2018 SUBJECTIVE: Patient was seen and examined at bedside and overnight events noted. Patient denies any shortness of breath or chest pain or palpitation. No history of nausea or vomiting or diarrhea or fever or chills or cramps. OBJECTIVE: GENERAL: This is a 52-year-old average-built female, in no apparent distress. VITAL SIGNS: Temperature 97.5. Heart rate 85. Respiratory rate . Blood pressure . HEENT: Atraumatic, normocephalic. Oral mucosa is moist NECK: Supple. CARDIOVASCULAR: S1, S2 heard. Rate and rhythm regular. RESPIRATORY: Clear to auscultation. GASTROINTESTINAL: Abdomen is soft. MUSCULOSKELETAL: No tenderness. No edema. DERMATOLOGIC: No skin rash. NEUROLOGIC: Alert and awake and oriented X3. No focal neurologic deficits. Moving all the extremities. PSYCHIATRIC: Mood and affect normal. LABORATORY DATA: Potassium is 3.7, BUN is 26, and creatinine is 4.0. ASSESSMENT AND PLAN: 1. End-stage renal disease, currently on hemodialysis. 2. Hypertension. 3. Anemia. 4. History of lupus. 5. Labs are stable. No current need for dialysis. Job ID: [id number]
[2018-01-23 05:20] LABS: Anion Gap 16 mmol/L (10-20); BUN (Urea Nitrogen) 50 mg/dL (9.8-20.1); Calc. Creatinine Clearance 12 mL/min (70-130); Carbon Dioxide 23 mmol/L (22-29); Chloride 98 mmol/L (98-107); Estimated GFR-MDRD 10; Glucose 103 mg/dL (70-105); Sodium 133 mmol/L (136-145)
[2018-01-23] MEDS: Famotidine 20 MG TAB PO SCH (08:15)
[2018-01-23] MEDS: predniSONE 5 MG TAB PO SCH (08:16)
[2018-01-23] MEDS: hydrALAZINE 25 MG TAB PO SCH ×3 (11:22→19:40)
[2018-01-23] MEDS: Famotidine/PF 20 mg/2ml Vial SLOW IVP SCH (11:22)
--- NOTE | 2018-01-23 12:41 | PDOC.PN ---
- Subjective Encounter Start Date: 01/23/18 Encounter Start Time: 12:39 -: old records requested/rev Patient seen and examined. No new complaints. No overnight events pt seen in HD room, she feels better, less dyspnea - Objective Resuscitation Status - Order Detail: 01/21/18 22:56 Resuscitation Status Routine Resuscitation Status: FULL: Full Resuscitation MAR Reviewed: Yes Vital Signs & Weight: Vital Signs (12 hours) Temp Pulse Resp BP Pulse Ox 01/23/18 11:22 74 01/23/18 07:18 98.3 F 74 18 137/90 94 L 01/23/18 04:00 98.1 F 76 16 120/89 95 Weight Weight 132 lb 4.438 oz I&O: 01/22/18 01/23/18 01/24/18 06:59 06:59 06:59 Intake Total 600 Balance 600 Result Diagrams: 01/22/18 03:55 01/23/18 04:06 Radiology Reviewed by me: Yes Phys Exam - Physical Examination Constitutional: NAD HEENT: PERRLA, moist MMs, sclera anicteric Neck: no JVD, supple Respiratory: no wheezing, no rales, no rhonchi Cardiovascular: RRR, no significant murmur, no rub Gastrointestinal: soft, non-tender, no distention, positive bowel sounds epigastric ventral hernia Musculoskeletal: no edema, pulses present Neurological: non-focal, normal sensation Lymphatic: no nodes Psychiatric: normal affect Skin: no rash, normal turgor Dx/Plan (1) Abdominal pain Code(s): R10.9 - UNSPECIFIED ABDOMINAL PAIN Status: Acute Qualifiers: Abdominal location: periumbilical Qualified Code(s): R10.33 - Periumbilical pain Comment: Secondary to abd wall hernia, supportive mgmt (2) Volume overload Code(s): E87.70 - FLUID OVERLOAD, UNSPECIFIED Status: Acute Comment: Likely due to ESRD, improved after HD (3) Abdominal wall hernia Status: Chronic Comment: Chronic, Gen Surgery consulted, likely will need non- urgent hernia repair (4) Anemia of renal disease Code(s): D63.1 - ANEMIA IN CHRONIC KIDNEY DISEASE Status: Chronic (5) CVA, old, dysarthria Code(s): I69.322 - DYSARTHRIA FOLLOWING CEREBRAL INFARCTION Status: Chronic (6) Dyslipidemia Code(s): E78.5 - HYPERLIPIDEMIA, UNSPECIFIED Status: Chronic (7) ESRD (end stage renal disease) on dialysis Code(s): N18.6 - END STAGE RENAL DISEASE; Z99.2 - DEPENDENCE ON RENAL DIALYSIS Status: Chronic Comment: HD on M/W/F (8) Hypertension Code(s): I10 - ESSENTIAL (PRIMARY) HYPERTENSION Status: Chronic Qualifiers: Comment: (9) Hypoalbuminemia Code(s): E88.09 - OTH DISORDERS OF PLASMA-PROTEIN METABOLISM, NEC Status: Chronic (10) Nephrotic syndrome Code(s): N04.9 - NEPHROTIC SYNDROME WITH UNSPECIFIED MORPHOLOGIC CHANGES Status: Chronic (11) Noncompliance with medication regimen Code(s): Z91.14 - PATIENT'S OTHER NONCOMPLIANCE WITH MEDICATION REGIMEN Status : Chronic (12) Secondary hyperparathyroidism of renal origin Code(s): N25.81 - SECONDARY HYPERPARATHYROIDISM OF RENAL ORIGIN Status: Chronic (13) Severe protein-energy malnutrition Code(s): E43 - UNSPECIFIED SEVERE PROTEIN-CALORIE MALNUTRITION Status: Chronic (14) Systemic lupus erythematosus Code(s): M32.9 - SYSTEMIC LUPUS ERYTHEMATOSUS, UNSPECIFIED Status: Chronic Comment: - Plan cont current plan of care * medication reviewed as below * symptomatic treatment * will monitor today after dialysis * adjust meds * expecting discharge soon. Review of Systems - Review of Systems Constitutional: weakness. negative: fever, chills, sweats, malaise, other ENT: negative: Ear Pain, Ear Discharge, Nose Pain, Nose Discharge, Nose Congestion, Mouth Pain, Mouth Swelling, Throat Pain, Throat Swelling, Other Respiratory: negative: Cough, Dry, Shortness of Breath, Hemoptysis, SOB with Excertion, Pleuritic Pain, Sputum, Wheezing Cardiovascular: negative: chest pain, palpitations, orthopnea, paroxysmal nocturnal dyspnea, edema, light headedness, other Gastrointestinal: negative: Nausea, Vomiting, Abdominal Pain, Diarrhea, Constipation, Melena, Hematochezia, Other Genitourinary: negative: Dysuria, Frequency, Incontinence, Hematuria, Retention , Other Musculoskeletal: negative: Neck Pain, Shoulder Pain, Arm Pain, Back Pain, Hand Pain, Leg Pain, Foot Pain, Other Skin: negative: Rash, Lesions, Steve, Bruising, Other - Medications/Allergies Allergies/Adverse Reactions: Allergies Allergy/AdvReac Type Severity Reaction Status Date / Time HUANG Inhibitors Allergy Verified 07/18/16 13:46 clonidine Allergy Verified 11/01/16 20:59 Medications: Current Medications Hydrocodone Bitart/Acetaminophen ([place] 10/325) 1 tab PO Q6H PRN PRN Reason: Moderate to Severe Pain (6-10) Famotidine (Pepcid) 20 mg SLOW IVP DAILY [facility] Last Admin: 01/23/18 11:22 Dose: Not Given Famotidine (Pepcid) 20 mg PO DAILY [facility] Last Admin: 01/23/18 08:15 Dose: 20 mg Hydralazine HCl (Apresoline) 100 mg PO TID [facility] Last Admin: 01/23/18 11:22 Dose: Not Given Prednisone (Prednisone) 5 mg PO DAILY [facility] Last Admin: 01/23/18 08:16 Dose: 5 mg Sodium Chloride (Flush - Normal Saline) 10 ml IVF Q12HR [facility] Last Admin: 01/23/18 11:22 Dose: Not Given Sodium Chloride (Flush - Normal Saline) 10 ml IVF PRN PRN PRN Reason: Saline Flush
--- NOTE | 2018-01-23 14:33 | PRG ---
DATE OF SERVICE: 01/23/2018 SUBJECTIVE: The patient states that her pain is gone. She has no hernia pain. She feels better. On examination, hernia is reduced. She looks good OBJECTIVE: VITAL SIGNS: Her temperature is 98.3, pulse 74, blood pressure 137/90. GENERAL: She looks good. ABDOMEN: Soft, nondistended. Hernia is reduced. ASSESSMENT: Doing well. PLAN: Finish treatment of pneumonia. Have her follow up in the office in a couple weeks and we can electively set her up to have the hernia repaired. Job ID: [id number]
--- NOTE | 2018-01-23 16:05 | PRG ---
DATE OF SERVICE: 01/23/2018 SUBJECTIVE: Patient was seen and examined at bedside and overnight events noted. Patient denies any shortness of breath or chest pain or palpitation. No history of nausea or vomiting or diarrhea or fever or chills or cramps. OBJECTIVE: GENERAL: This is a well-built female, in no acute distress. VITAL SIGNS: Temperature 98.3. Heart rate 74. Respiratory rate 18. Blood pressure 137/90. HEENT: Atraumatic, normocephalic. Oral mucosa is moist. NECK: Supple. CARDIOVASCULAR: S1, S2 heard. Rate and rhythm regular. RESPIRATORY: Clear to auscultation. GASTROINTESTINAL: Abdomen is soft. MUSCULOSKELETAL: No tenderness. No edema. DERMATOLOGIC: No skin rash. NEUROLOGIC: Alert and awake and oriented X3. No focal neurologic deficits. Moving all the extremities. PSYCHIATRIC: Mood and affect normal. LABORATORY DATA: Potassium is 4.0, BUN is , and creatinine is 5.3. ASSESSMENT AND PLAN: 1. End-stage renal disease, currently on hemodialysis Friday, Friday, and Friday. 2. Hypertension. Limit salt intake and monitor. Blood pressure seems to be stable. 3. Edema, controlled. 4. Anemia . 5. History of lupus. We will continue on dialysis Friday, Friday, and Friday as tolerated. Job ID: [id number]
[2018-01-24 07:34] VITALS: BP 126/95; TEMP 98.1
[2018-01-24] MEDS: Famotidine 20 MG TAB PO SCH (09:10)
[2018-01-24] MEDS: predniSONE 5 MG TAB PO SCH (09:10)
[2018-01-24] MEDS: Famotidine/PF 20 mg/2ml Vial SLOW IVP SCH (09:11)
--- NOTE | 2018-01-24 09:35 | PDOC.PN ---
- Subjective Encounter Start Date: 01/24/18 Encounter Start Time: 09:00 Patient seen and examined. No new complaints. No overnight events - Objective Resuscitation Status - Order Detail: 01/21/18 22:56 Resuscitation Status Routine Resuscitation Status: FULL: Full Resuscitation MAR Reviewed: Yes Vital Signs & Weight: Vital Signs (12 hours) Temp Pulse Resp BP Pulse Ox 01/24/18 07:31 98.1 F 87 16 126/95 H 94 L 01/24/18 04:00 98.4 F 75 16 132/94 H 96 01/24/18 00:05 98.5 F 80 16 122/86 95 Weight Weight 132 lb 4.438 oz Result Diagrams: 01/22/18 03:55 01/23/18 04:06 Additional Labs: Accuchecks 01/23/18 16:18 POC Glucose 116 H Phys Exam - Physical Examination Constitutional: NAD HEENT: PERRLA, moist MMs, sclera anicteric Neck: no JVD, supple Respiratory: no wheezing, no rales, no rhonchi Cardiovascular: RRR, no significant murmur, no rub Gastrointestinal: soft, non-tender, no distention, positive bowel sounds Musculoskeletal: no edema, pulses present Neurological: non-focal, normal sensation Psychiatric: normal affect, A&O x 3 Skin: no rash, normal turgor Dx/Plan (1) Abdominal pain Code(s): R10.9 - UNSPECIFIED ABDOMINAL PAIN Status: Acute Qualifiers: Abdominal location: periumbilical Qualified Code(s): R10.33 - Periumbilical pain Comment: Secondary to abd wall hernia, supportive mgmt (2) Volume overload Code(s): E87.70 - FLUID OVERLOAD, UNSPECIFIED Status: Acute Comment: Likely due to ESRD, improved after HD (3) Abdominal wall hernia Status: Chronic Comment: Chronic, Gen Surgery consulted, likely will need non- urgent hernia repair (4) Anemia of renal disease Code(s): D63.1 - ANEMIA IN CHRONIC KIDNEY DISEASE Status: Chronic (5) CVA, old, dysarthria Code(s): I69.322 - DYSARTHRIA FOLLOWING CEREBRAL INFARCTION Status: Chronic (6) Dyslipidemia Code(s): E78.5 - HYPERLIPIDEMIA, UNSPECIFIED Status: Chronic (7) ESRD (end stage renal disease) on dialysis Code(s): N18.6 - END STAGE RENAL DISEASE; Z99.2 - DEPENDENCE ON RENAL DIALYSIS Status: Chronic Comment: HD on M/W/F (8) Hypertension Code(s): I10 - ESSENTIAL (PRIMARY) HYPERTENSION Status: Chronic Qualifiers: Comment: (9) Hypoalbuminemia Code(s): E88.09 - OTH DISORDERS OF PLASMA-PROTEIN METABOLISM, NEC Status: Chronic (10) Nephrotic syndrome Code(s): N04.9 - NEPHROTIC SYNDROME WITH UNSPECIFIED MORPHOLOGIC CHANGES Status: Chronic (11) Noncompliance with medication regimen Code(s): Z91.14 - PATIENT'S OTHER NONCOMPLIANCE WITH MEDICATION REGIMEN Status : Chronic (12) Secondary hyperparathyroidism of renal origin Code(s): N25.81 - SECONDARY HYPERPARATHYROIDISM OF RENAL ORIGIN Status: Chronic (13) Severe protein-energy malnutrition Code(s): E43 - UNSPECIFIED SEVERE PROTEIN-CALORIE MALNUTRITION Status: Chronic (14) Systemic lupus erythematosus Code(s): M32.9 - SYSTEMIC LUPUS ERYTHEMATOSUS, UNSPECIFIED Status: Chronic Comment: - Plan cont current plan of care * medication reviewed as below * symptomatic treatment * see my discharge jeaneth. Review of Systems - Review of Systems ENT: negative: Ear Pain, Ear Discharge, Nose Pain, Nose Discharge, Nose Congestion, Mouth Pain, Mouth Swelling, Throat Pain, Throat Swelling, Other Respiratory: negative: Cough, Dry, Shortness of Breath, Hemoptysis, SOB with Excertion, Pleuritic Pain, Sputum, Wheezing Cardiovascular: negative: chest pain, palpitations, orthopnea, paroxysmal nocturnal dyspnea, edema, light headedness, other Gastrointestinal: negative: Nausea, Vomiting, Abdominal Pain, Diarrhea, Constipation, Melena, Hematochezia, Other Genitourinary: negative: Dysuria, Frequency, Incontinence, Hematuria, Retention , Other Musculoskeletal: negative: Neck Pain, Shoulder Pain, Arm Pain, Back Pain, Hand Pain, Leg Pain, Foot Pain, Other - Medications/Allergies Allergies/Adverse Reactions: Allergies Allergy/AdvReac Type Severity Reaction Status Date / Time HUANG Inhibitors Allergy Verified 07/18/16 13:46 clonidine Allergy Verified 11/01/16 20:59 Medications: Current Medications Hydrocodone Bitart/Acetaminophen ([place] 10/325) 1 tab PO Q6H PRN PRN Reason: Moderate to Severe Pain (6-10) Famotidine (Pepcid) 20 mg SLOW IVP DAILY [facility] Last Admin: 12/01/18 09:11 Dose: Not Given Famotidine (Pepcid) 20 mg PO DAILY [facility] Last Admin: 01/24/18 09:10 Dose: 20 mg Hydralazine HCl (Apresoline) 100 mg PO TID [facility] Last Admin: 01/23/18 19:40 Dose: 100 mg Prednisone (Prednisone) 5 mg PO DAILY [facility] Last Admin: 01/24/18 09:10 Dose: 5 mg Sodium Chloride (Flush - Normal Saline) 10 ml IVF Q12HR [facility] Last Admin: 01/24/18 09:11 Dose: 10 ml Sodium Chloride (Flush - Normal Saline) 10 ml IVF PRN PRN PRN Reason: Saline Flush
--- NOTE | 2018-01-24 10:10 | DIS ---
DATE OF ADMISSION: 01/21/2018 DATE OF DISCHARGE: 01/24/2018 PRIMARY CARE PHYSICIAN: Dr. Yisel Mcgill. DISCHARGE DISPOSITION: Home. PRIMARY DISCHARGE DIAGNOSES: 1. Abdominal pain due to abdominal wall hernia. 2. Volume overload, resolved. SECONDARY DISCHARGE DIAGNOSES: 1. Systemic lupus erythematosus. 2. Protein calorie malnutrition, severe. 3. Secondary hyperparathyroidism of renal origin, noncompliance with treatment. 4. Nephrotic syndrome. 5. Hypoalbuminemia. 6. Hypertension. 7. End-stage renal disease, on hemodialysis. 8. Dyslipidemia. 9. History of old cerebrovascular accident. 10. Anemia of renal disease. PRIMARY PROCEDURE/OPERATION: Maintenance hemodialysis. RADIOLOGICAL INVESTIGATION: Abdomen and pelvis CT scan, chest x-ray, abdomen ultrasound. SIGNIFICANT LABS: WBC 4.5, hemoglobin 13.4, and platelet 226. Sodium 133, potassium 4.0, BUN 50, creatinine 5.36, and calcium 8.0. LFT normal. Albumin 3.4. Hepatitis B surface antigen negative. Blood culture negative. DISCHARGE MEDICATIONS: 1. [place] 10 one tablet q.6 hourly p.r.n. 2. Hydralazine 100 mg t.i.d. 3. Prednisone 5 mg p.o. daily. 4. Torsemide 100 mg p.o. daily. CONTRAINDICATION: None. CODE STATUS: Full code. INPATIENT CONSULTANTS: 1. Dr. Vieyra was following for maintenance hemodialysis. 2. Dr. Ovalle was consulted for hernia. TEST RESULTS PENDING ON DISCHARGE: None. ALLERGIES: HUANG INHIBITOR AND CLONIDINE. DISCHARGE PLAN: Posthospital, the patient will follow up with Dr. Yisel Mcgill and Dr. Ovalle as instructed. HOSPITAL COURSE: A 52-year-old female, who was admitted by Dr. Currie. Please see his H and P for further details. She presented to the emergency room with abdominal pain. Her abdominal pain was related with hernia. She had CT abdomen and pelvis without any acute abdominal process. Abdominal ultrasound was also negative for any acute abdominal process. General Surgery was consulted for her abdominal hernia and they recommended outpatient treatment. Her pain was controlled with pain medication while in the hospital with improvement. The patient also having volume overload, and that is why the Nephrology was consulted and we did serial dialysis while in hospital. With that, her fluid overload status also improved. The patient is doing very well now. The patient is seen and examined at bedside today. Her examination has unchanged from yesterday. All review of systems reviewed with her are negative. We are not making any change in her home medication. We instructed her to follow up with primary care physician and get maintenance hemodialysis as well as follow up with Dr. Ovalle as instructed. Job ID: [id number]
[2018-01-24] MEDS: hydrALAZINE 25 MG TAB PO SCH (11:39)
--- NOTE | 2018-01-24 20:55 | PRG ---
DATE OF SERVICE: 01/24/2018 SUBJECTIVE: Patient was seen and examined at bedside and overnight events noted. Patient denies any shortness of breath or chest pain or palpitation. No history of nausea or vomiting or diarrhea or fever or chills or cramps. OBJECTIVE: GENERAL: This is a well-built female, in no apparent distress. VITAL SIGNS: Temperature 98.1, pulse is 87, respiratory rate , blood pressure 126/95. HEENT: Atraumatic, normocephalic. Oral mucosa is moist NECK: Supple. CARDIOVASCULAR: S1, S2 heard. Rate and rhythm regular. RESPIRATORY: Clear to auscultation. GASTROINTESTINAL: Abdomen is soft. MUSCULOSKELETAL: No tenderness. No edema. DERMATOLOGIC: No skin rash. NEUROLOGIC: Alert and awake and oriented X3. No focal neurologic deficits. Moving all the extremities. PSYCHIATRIC: Mood and affect normal. LABORATORY DATA: Not done today. ASSESSMENT AND PLAN: 1. End-stage renal disease, continue dialysis on Friday, Friday, and Friday. 2. Hypertension. 3. Edema. 4. Anemia. 5. History of lupus. Continue dialysis Friday, Friday, and Friday as tolerated. Job ID: [id number]
== END 2018-01-24 11:03 | disposition home or self-care (01) | DRG 393 ==
LOC: ERS 09:11 → T4-B 20:51
PROVIDERS: ADMIT Family Medicine; ATTEND Family Medicine
PROC: 5A1D70Z Performance of Urinary Filtration, Intermittent, Less than 6 Hours Per Day (ICD-10-PCS; principal; 2018-01-21)
PROC: 5A1D70Z Performance of Urinary Filtration, Intermittent, Less than 6 Hours Per Day (ICD-10-PCS; 2018-01-23)
DX: K43.9 Ventral hernia without obstruction or gangrene (principal); J18.9 Pneumonia, unspecified organism; N18.6 End stage renal disease; E43 Unspecified severe protein-calorie malnutrition; I12.0 Hypertensive chronic kidney disease with stage 5 chronic kidney disease or end stage renal disease; N25.81 Secondary hyperparathyroidism of renal origin; Z99.2 Dependence on renal dialysis; J45.909 Unspecified asthma, uncomplicated; M32.9 Systemic lupus erythematosus, unspecified; D63.1 Anemia in chronic kidney disease; I69.322 Dysarthria following cerebral infarction; E78.5 Hyperlipidemia, unspecified; Z91.14 Patient's other noncompliance with medication regimen; Z68.28 Body mass index [BMI] 28.0-28.9, adult; E87.70 Fluid overload, unspecified; Z87.891 Personal history of nicotine dependence
CPT/HCPCS: 36415; 36416; 71045; 74177; 76705; 80048; 80053; 83605; 83690; 85025; 87040; 87340; 90935; 96365; 96366; 96367; 96375; G0257; J0456; J0696; J2543; J2930; J3370; J7050; S0028

== ENCOUNTER 2018-02-11 23:02 | Emergency (ER) | payer OTHER ==
[2018-02-11] MEDS ORDERED: Ondansetron PF 4 MG/2 ML Vial ONE (23:26)
[2018-02-11] MEDS ORDERED: Dicyclomine 20 MG TAB ONE (23:26)
[2018-02-11 23:55] LABS: Eosinophils 2 % (0-10); Hemoglobin 13.2 g/dL (12.0-16.0); Lymphocytes 29 % (21-51); MDiff Complete? YES; Mean Corpuscular HGB CONC 32.2 g/dL (32.0-36.0); Mean Corpuscular Hemoglobin 30.7 pg (27.0-31.0); Mean Corpuscular Volume 95.3 fL (78.0-98.0); Mean Platelet Volume 8.3 fL (7.4-10.4); Monocytes 11 % (0-10); Neutrophil 58 % (42-75); PLT Morphology Comment Appears Adequate; Platelet Count 219 thou/uL (130-400); RBC Distribution Width 14.3 % (11.5-14.5); Red Blood Cell (RBC) Count 4.31 mill/uL (4.20-5.40); White Blood Cell (WBC) Count 3.1 thou/uL (4.8-10.8)
[2018-02-11 23:58] LABS: ALT (SGPT) 21 U/L (8-55); AST (SGOT) 28 U/L (5-34); Albumin 3.7 g/dL (3.5-5.0); Alkaline Phosphatase 95 U/L (40-150); Anion Gap 19 mmol/L (10-20); BUN (Urea Nitrogen) 45 mg/dL (9.8-20.1); Bilirubin, Total 0.2 mg/dL (0.2-1.2); Calc. Creatinine Clearance 0 mL/min (70-130); Calcium 8.3 mg/dL (7.8-10.44); Carbon Dioxide 22 mmol/L (22-29); Chloride 98 mmol/L (98-107); Estimated GFR-MDRD 7; Globulin 4.4 g/dL (2.4-3.5); Glucose 112 mg/dL (70-105); Lipase 34 U/L (8-78); Potassium 4.9 mmol/L (3.5-5.1); Protein, Total 8.1 g/dL (6.0-8.3); Sodium 134 mmol/L (136-145)
--- NOTE | 2018-02-12 07:04 | CT ---
CT OF THE ABDOMEN AND PELVIS: Date: 02/11/18 PROVIDED CLINICAL HISTORY: Abdominal pain. FINDINGS: Comparison with 01/21/18. The visualized lung bases are free of significant opacity. Incompletely characterized cutaneous thick ening and stromal edema involving the left breast. The liver is enlarged. The spleen, pancreas, kidneys, and adrenal glands demonstrate an unremarkable CT appearance. There is apparent wall thickening involving the gallbladder with mucosal enhancement, nonspecific and similar to the prior study. There is apparent mural thickening involving the hepatic flexure and right colon. The appendix appear s normal. There is no evidence or free fluid or free air. There is no evidence for bowel obstruction. Vascular calcifications are seen. Nonspecific stranding changes are seen within the retroperitoneum, similar to the prior examination. IMPRESSION: CT findings are similar to the prior examination of 01/21/18 with nonspecific gallbladder wall thicke karlene. Mucosal edema may be present involving a portion of the colon. Correlate with concerns for coli tis. POS: [facility]
== END 2018-02-12 00:42 | disposition home or self-care (01) ==
LOC: ERS 23:02
DX: K52.9 Noninfective gastroenteritis and colitis, unspecified (principal); I10 Essential (primary) hypertension; J45.909 Unspecified asthma, uncomplicated; Z87.891 Personal history of nicotine dependence; Z99.2 Dependence on renal dialysis
CPT/HCPCS: 74177; 80053; 83690; 85025; 96361; 96374; J2405

== ENCOUNTER 2018-03-03 16:37 | Outpatient (CLI) | payer OTHER ==
[2018-03-03 18:09] LABS: ALT (SGPT) 24 U/L (8-55); AST (SGOT) 25 U/L (5-34); Alkaline Phosphatase 115 U/L (40-150); Anion Gap 17 mmol/L (10-20); BUN (Urea Nitrogen) 31 mg/dL (9.8-20.1); Bilirubin, Total 0.6 mg/dL (0.2-1.2); Calc. Creatinine Clearance 0 mL/min (70-130); Calcium 8.3 mg/dL (7.8-10.44); Carbon Dioxide 28 mmol/L (22-29); Chloride 101 mmol/L (98-107); Estimated GFR-MDRD 10; Globulin 3.5 g/dL (2.4-3.5); Glucose 73 mg/dL (70-105); Potassium 4.2 mmol/L (3.5-5.1); Protein, Total 7.5 g/dL (6.0-8.3); Sodium 142 mmol/L (136-145)
[2018-03-03 18:35] LABS: Anisocytosis SLIGHT = 6-15 cells (100X) (0-5/hpf); Eosinophils 3 % (0-10); Hypochromia SLIGHT = 6-15 cells (100X) (0-5/hpf); Lymphocytes 8 % (21-51); MDiff Complete? YES; Mean Corpuscular HGB CONC 30.4 g/dL (32.0-36.0); Mean Corpuscular Hemoglobin 29.9 pg (27.0-31.0); Mean Corpuscular Volume 98.1 fL (78.0-98.0); Mean Platelet Volume 8.8 fL (7.4-10.4); Monocytes 5 % (0-10); Neutrophil 84 % (42-75); PLT Morphology Comment Appears Adequate; Platelet Count 188 thou/uL (130-400); RBC Distribution Width 15.1 % (11.5-14.5); White Blood Cell (WBC) Count 3.3 thou/uL (4.8-10.8)
== END 2018-03-03 16:38 | disposition home or self-care (01) ==
LOC: LABBT 16:37
PROVIDERS: ATTEND Surgery
DX: Z01.818 Encounter for other preprocedural examination (principal); K43.9 Ventral hernia without obstruction or gangrene
CPT/HCPCS: 80053; 85025; 93005; 93010

== ENCOUNTER 2018-03-05 05:36 | Day surgery (SDC) | payer OTHER ==
[2018-03-03 16:56] VITALS: BMI 28.3
[2018-03-05] MEDS ORDERED: Fentanyl 250 MCG/5 ML VIAL ONE (06:12)
[2018-03-05] MEDS ORDERED: Midazolam HCl 2 mg/2 ml Vial ONE (06:12)
[2018-03-05] MEDS ORDERED: Lidocaine 2% Jelly 5 ML TUBE ONE (06:13)
[2018-03-05] MEDS ORDERED: Hydrocortisone Sod Succ/PF 100 mg/2 ml Vial ONE ×2 (06:33→14:10)
[2018-03-05] MEDS ORDERED: Bupivacaine/Epinephrine 0.25% 30 ML VIAL ONE (06:48)
[2018-03-05] MEDS ORDERED: CEFAZOLIN 2 GM/50 ML BAG ONE (07:16)
[2018-03-05 07:27] LABS: Anion Gap 21 mmol/L (10-20); BUN (Urea Nitrogen) 47 mg/dL (9.8-20.1); Calc. Creatinine Clearance 9 mL/min (70-130); Calcium 8.4 mg/dL (7.8-10.44); Carbon Dioxide 21 mmol/L (22-29); Chloride 104 mmol/L (98-107); Estimated GFR-MDRD 7; Glucose 95 mg/dL (70-105); Potassium 4.6 mmol/L (3.5-5.1); Sodium 141 mmol/L (136-145)
[2018-03-05] MEDS ORDERED: SUGAMMADEX SODIUM 200 MG/2 ML VIAL ONE (08:31)
--- NOTE | 2018-03-05 10:23 | OP ---
DATE OF PROCEDURE: 03/05/2018 female, who had a painful bulge in the epigastrium. FINDINGS: 2 cm defect, 8 cm mesh used. DESCRIPTION OF PROCEDURE: After informed consent was obtained, the patient was taken to the operating room and given general endotracheal anesthesia, placed in the supine position. Her abdomen was prepped and draped in usual fashion. Local anesthesia was infiltrated subcutaneously and deep, and a midline incision was performed. Subcu divided sharply. The hernia sac was dissected out circumferentially and then reduced. Reduction was maintained with 8 cm Proceed mesh patch. This was inserted in the preperitoneal space and then sutured. The wings were sutured to the fascia with interrupted 0 Ethibond suture. Then, further sutures of 0 Ethibond were placed circumferentially. Hemostasis assured. The subcu reapproximated with interrupted 3-0 Vicryl. The skin closed with a running subcuticular 4-0 Rapide. Steri-Strips applied. Compression bandage and abdominal binder applied. The patient tolerated the procedure well, transferred to Recovery in good condition. Sponge and needle count verified correct x2. Job ID: [id number]
[2018-03-05] MEDS ORDERED: PHENYLEPHRINE-NS 100 MCG/ML 10 ML SYRINGE ONE (14:10)
[2018-03-05] MEDS ORDERED: PROPOFOL 200 MG/20 ML VIAL ONE (14:10)
[2018-03-05] MEDS ORDERED: Glycopyrrolate 0.2 MG/ML 5 ML SYRINGE ONE (14:10)
[2018-03-05] MEDS ORDERED: Lidocaine 1% PF 5 ML VIAL ONE (14:10)
[2018-03-05] MEDS ORDERED: Ondansetron PF 4 MG/2 ML Vial ONE (14:10)
== END 2018-03-05 10:12 | disposition home or self-care (01) ==
LOC: SDC 05:36
PROVIDERS: ATTEND Surgery
PROC: 0WUF0JZ Supplement Abdominal Wall with Synthetic Substitute, Open Approach (ICD-10-PCS; principal; 2018-03-05)
DX: K43.9 Ventral hernia without obstruction or gangrene (principal); J45.909 Unspecified asthma, uncomplicated; E78.5 Hyperlipidemia, unspecified; M19.90 Unspecified osteoarthritis, unspecified site; I12.0 Hypertensive chronic kidney disease with stage 5 chronic kidney disease or end stage renal disease; N18.6 End stage renal disease; M32.9 Systemic lupus erythematosus, unspecified; F17.210 Nicotine dependence, cigarettes, uncomplicated; Z79.51 Long term (current) use of inhaled steroids; Z79.52 Long term (current) use of systemic steroids; Z79.899 Other long term (current) drug therapy; Z88.8 Allergy status to other drugs, medicaments and biological substances
CPT/HCPCS: 36415; 80048; C1781; J1720; J2001; J2250; J2405; J2704; J3010

== ENCOUNTER 2018-04-17 05:29 | Emergency (ER) | payer OTHER ==
[2018-04-17 06:21] LABS: Hemoglobin 14.8 g/dL (12.0-16.0); Mean Corpuscular HGB CONC 29.6 g/dL (32.0-36.0); Mean Corpuscular Hemoglobin 29.4 pg (27.0-31.0); Mean Corpuscular Volume 99.3 fL (78.0-98.0); Mean Platelet Volume 8.6 fL (7.4-10.4); Platelet Count 191 thou/uL (130-400); RBC Distribution Width 14.5 % (11.5-14.5); Red Blood Cell (RBC) Count 5.04 mill/uL (4.20-5.40); White Blood Cell (WBC) Count 3.8 thou/uL (4.8-10.8)
[2018-04-17] MEDS ORDERED: hydrOXYzine Pamoate 25 mg Capsule ONE (06:34)
[2018-04-17 06:36] LABS: Lymphocytes 19 % (21-51); MDiff Complete? YES; Monocytes 2 % (0-10); Neutrophil 78 % (42-75); Platelet Morphology Comment Appears Adequate; RBC Morphology Normal; Reactive Lymphocytes 1 % (0-10)
[2018-04-17 06:44] LABS: ALT (SGPT) 16 U/L (8-55); AST (SGOT) 15 U/L (5-34); Albumin 3.8 g/dL (3.5-5.0); Alkaline Phosphatase 108 U/L (40-150); Anion Gap 20 mmol/L (10-20); BUN (Urea Nitrogen) 40 mg/dL (9.8-20.1); Bilirubin, Total 0.5 mg/dL (0.2-1.2); Calc. Creatinine Clearance 0 mL/min (70-130); Calcium 9.3 mg/dL (7.8-10.44); Carbon Dioxide 22 mmol/L (22-29); Chloride 102 mmol/L (98-107); Estimated GFR-MDRD 10; Globulin 3.9 g/dL (2.4-3.5); Glucose 87 mg/dL (70-105); Potassium 3.9 mmol/L (3.5-5.1); Protein, Total 7.7 g/dL (6.0-8.3); Sodium 140 mmol/L (136-145)
--- NOTE | 2018-04-17 07:30 | RAD ---
FRONTAL VIEW CHEST: Date: 04/17/18 COMPARISON: 01/21/18. INDICATION: Emergency exam, new onset shortness of breath. FINDINGS: There is stable prominence of the cardiac silhouette. There is no lobar consolidation, effusion, or p neumothorax. Osseous structures intact. There is mild prominence of central pulmonary vasculature. IMPRESSION: 1. Mild prominence of the cardiac silhouette and pulmonary vasculature. Correlate for fluid status. 2. No lobar consolidation or significant effusion. POS: [facility]
--- NOTE | 2018-04-17 07:36 | ULT ---
ULTRASOUND WITH DOPPLER DUPLEX VENOUS LOWER EXTREMITY RIGHT: CPT: 47605 ICD-10-PCS: B54D INDICATION: Right lower extremity pain and edema. TECHNIQUE: Color flow Doppler, spectral waveform analysis of pulsed Doppler, and hightower-scale imaging with lopez erika and augmentation, were used to evaluate the right common femoral, femoral, popliteal, posterior tibial, and superficial femoral, veins; and the proximal portions of the profunda femoral and greater saphenous, veins. FINDINGS: There is appropriate compressibility and flow within the imaged deep venous system of the right lower extremity. There is soft tissue edema. IMPRESSION: 1. No deep venous thrombosis. 2. Soft tissue edema. Correlate clinically. POS: [facility]
== END 2018-04-17 07:42 | disposition home or self-care (01) ==
LOC: ERS 05:29
DX: E87.70 Fluid overload, unspecified (principal); N64.59 Other signs and symptoms in breast; I10 Essential (primary) hypertension; J45.909 Unspecified asthma, uncomplicated; Z86.73 Personal history of transient ischemic attack (TIA), and cerebral infarction without residual deficits; Z87.891 Personal history of nicotine dependence
CPT/HCPCS: 36415; 71045; 80053; 83880; 84484; 85025; 93005; Q0177

== ENCOUNTER 2018-04-24 11:08 | Emergency (ER) | payer OTHER ==
[2018-04-24 13:22] LABS: Hemoglobin 14.5 g/dL (12.0-16.0); Mean Corpuscular HGB CONC 29.9 g/dL (32.0-36.0); Mean Corpuscular Hemoglobin 29.7 pg (27.0-31.0); Mean Corpuscular Volume 99.4 fL (78.0-98.0); Mean Platelet Volume 8.6 fL (7.4-10.4); Platelet Count 188 thou/uL (130-400); RBC Distribution Width 14.5 % (11.5-14.5); Red Blood Cell (RBC) Count 4.89 mill/uL (4.20-5.40); White Blood Cell (WBC) Count 5.9 thou/uL (4.8-10.8)
[2018-04-24 13:30] LABS: ALT (SGPT) 11 U/L (8-55); AST (SGOT) 14 U/L (5-34); Albumin 3.7 g/dL (3.5-5.0); Alkaline Phosphatase 99 U/L (40-150); Anion Gap 17 mmol/L (10-20); BUN (Urea Nitrogen) 23 mg/dL (9.8-20.1); Bilirubin, Total 0.7 mg/dL (0.2-1.2); Calc. Creatinine Clearance 0 mL/min (70-130); Calcium 9.6 mg/dL (7.8-10.44); Carbon Dioxide 25 mmol/L (22-29); Chloride 101 mmol/L (98-107); Estimated GFR-MDRD 10; Globulin 3.9 g/dL (2.4-3.5); Glucose 87 mg/dL (70-105); Potassium 4.3 mmol/L (3.5-5.1); Protein, Total 7.6 g/dL (6.0-8.3); Sodium 139 mmol/L (136-145)
[2018-04-24 13:42] LABS: Band 1 % (5-11); Lymphocytes 11 % (21-51); MDiff Complete? YES; Monocytes 4 % (0-10); Neutrophil 83 % (42-75); Platelet Morphology Comment Appears Adequate
--- NOTE | 2018-04-24 13:57 | RAD ---
2 VIEW CHEST: Date: 04/24/18 INDICATION: Cough. COMPARISON: 02/25/17. FINDINGS: The lungs appear clear. No infiltrate. Heart size upper normal and stable. Vasculature normal. IMPRESSION: No acute process identified. POS: [facility]
== END 2018-04-24 14:40 | disposition home or self-care (01) ==
LOC: ERS 11:08
DX: R05 Cough (principal); I12.9 Hypertensive chronic kidney disease with stage 1 through stage 4 chronic kidney disease, or unspecified chronic kidney disease; N18.9 Chronic kidney disease, unspecified; Z99.2 Dependence on renal dialysis; J45.909 Unspecified asthma, uncomplicated; Z87.891 Personal history of nicotine dependence
CPT/HCPCS: 36415; 71046; 80053; 84484; 85025; 93005

== ENCOUNTER 2018-05-03 12:34 | Emergency (ER) | payer OTHER ==
--- NOTE | 2018-05-03 14:35 | RAD ---
RADIOGRAPH CHEST 1 VIEW: DATE: 05/03/2018. TIME: 2:11 p.m. HISTORY: A 53-year-old female with a history of congestive heart failure and kidney failure presents with bila teral lower extremity swelling. FINDINGS: There is no air space density, pulmonary edema, or pneumothorax. The lateral costophrenic angles are sharp. There is no interval change since 04/24/2018. IMPRESSION: No acute pulmonary findings. alexander [] POS: [facility]
[2018-05-03 14:50] LABS: #Eosinphils 0.1 thou/uL (0.0-0.7); #Lymphocytes 1.1 thou/uL (1.20-3.40); #Monocytes 0.5 thou/uL (0.11-0.59); #Neutrophils 2.3 thou/uL (1.40-6.50); %Basophils 0.6 % (0.0-1.0); %Eosinophils 3.7 % (0.0-10.0); %Lymphocytes 26.4 % (21.0-51.0); %Monocytes 13.1 % (0.0-10.0); %Neutrophils 56.2 % (42.0-75.0); Hemoglobin 15.1 g/dL (12.0-16.0); Mean Corpuscular HGB CONC 30.2 g/dL (32.0-36.0); Mean Corpuscular Hemoglobin 29.4 pg (27.0-31.0); Mean Corpuscular Volume 97.5 fL (78.0-98.0); Mean Platelet Volume 8.5 fL (7.4-10.4); Platelet Count 205 thou/uL (130-400); RBC Distribution Width 15.3 % (11.5-14.5); Red Blood Cell (RBC) Count 5.15 mill/uL (4.20-5.40)
[2018-05-03 14:55] LABS: Bilirubin Negative (Negative); Blood, Urine Small (Negative); Clarity CLEAR (Clear); Glucose, Urine (Dipstick) Negative (Negative); Leukocyte Small (Negative); Nitrite Negative (Negative); Protein, Urine (Dipstick) 300 mg/dL (Neg-Trace); Specific Gravity, Urine 1.017 (1.002-1.036); Urobilinogen 0.2 mg/dL (0.2-1.0)
[2018-05-03 14:56] LABS: Bacteria/HPF Rare-Few HPF (None Seen); Hyaline Casts/LPF 0-3 HYALINE CAST LPF (0-3 Hyaline); Pathc Cast-AUWi Flag 0.54 (0-2.49)
[2018-05-03 15:09] LABS: ALT (SGPT) 12 U/L (8-55); AST (SGOT) 16 U/L (5-34); Albumin 3.6 g/dL (3.5-5.0); Alkaline Phosphatase 121 U/L (40-150); Anion Gap 17 mmol/L (10-20); BUN (Urea Nitrogen) 32 mg/dL (9.8-20.1); Bilirubin, Total 0.8 mg/dL (0.2-1.2); CK (CPK) 59 U/L (29-168); Calc. Creatinine Clearance 0 mL/min (70-130); Calcium 9.2 mg/dL (7.8-10.44); Carbon Dioxide 24 mmol/L (22-29); Chloride 103 mmol/L (98-107); Estimated GFR-MDRD 9; Globulin 3.7 g/dL (2.4-3.5); Glucose 95 mg/dL (70-105); Potassium 4.1 mmol/L (3.5-5.1); Protein, Total 7.3 g/dL (6.0-8.3); Sodium 140 mmol/L (136-145)
[2018-05-03] MEDS ORDERED: Furosemide 40 MG/4 ML VIAL ONE (16:53)
== END 2018-05-03 17:35 | disposition home or self-care (01) ==
LOC: ERS 12:34
DX: I13.2 Hypertensive heart and chronic kidney disease with heart failure and with stage 5 chronic kidney disease, or end stage renal disease (principal); N18.6 End stage renal disease; I50.9 Heart failure, unspecified; R60.0 Localized edema; J45.909 Unspecified asthma, uncomplicated; Z86.73 Personal history of transient ischemic attack (TIA), and cerebral infarction without residual deficits
CPT/HCPCS: 36415; 71045; 80053; 81003; 81015; 82550; 83880; 84484; 85025; 93005; 94760; 96374; J1940

== ENCOUNTER 2018-05-05 14:12 | Outpatient (CLI) | payer OTHER ==
--- NOTE | 2018-05-05 15:58 | ULT ---
BILATERAL BREAST ULTRASOUND: Date: 05/05/18 HISTORY: Skin thickening. FINDINGS: Correlation made with mammogram from same date. No skin thickening or underlying mass is seen in the right lower inner breast. Sonographic evaluation of the left breast demonstrates extensive skin thickening in the periareolar r egion without underlying mass. This corresponds to the finding on the mammogram. IMPRESSION: BIRADS Category 4 - Suspicious abnormality. Surgical consultation for punch biopsy is recommended. Discussed in person with the patient and her mother at 1525 hours. CODE CR. POS: [facility]
--- NOTE | 2018-05-05 16:03 | RAD ---
TWO VIEWS CHEST: Comparison: 04-24-18 History: Chronic lower respiratory disease. Patient has difficulty breathing. FINDINGS: Two views of the chest shows a cardiomediastinal silhouette which is upper limits of normal in size. There is no evidence of consolidation, mass, or pleural effusion. IMPRESSION: No evidence of acute cardiopulmonary disease. POS: [facility]
--- NOTE | 2018-05-06 15:33 | MMO ---
MAMMO Bilat Diag [facility]+CHUCK. CLINICAL HISTORY: Patient is 53 years old and is seen for diagnostic exam. The patient has no family history of breast cancer. The patient has no personal history of cancer. VIEWS: The views performed were: bilateral craniocaudal with tomosynthesis; bilateral mediolateral oblique with tomosynthesis; and bilateral mediolateral. FILMS COMPARED: The present examination has been compared to prior imaging studies performed at [facility] on 09/06/2009 and 05/05/2018. MAMMOGRAM FINDINGS: The breasts are heterogeneously dense, which could obscure a lesion on mammography. Benign calcifications are noted bilaterally. No suspicious calcifications or masses are seen. There is mildly increased density in the right lower inner breast without accompanying US abnormality. There is left periaerolar skin thickening which is new and should be biopsied. IMPRESSION: FINDING IN THE LEFT BREAST IS SUSPICIOUS. BIOPSY IS RECOMMENDED. D/W PATIENT AND HER MOTHER IN PERSON ON 05/05/18 AT 3:25 PM. THE RESULTS OF THIS EXAM WERE SENT TO THE PATIENT. ACR BI-RADS Category 4 - Suspicious abnormality - biopsy should be considered MAMMOGRAPHY NOTE: 1. A negative mammogram report should not delay a biopsy if a dominant of clinically suspicious mass is present. 2. Approximately 10% to 15% of breast cancers are not detected by mammography. 3. Adenosis and dense breasts may obscure an underlying neoplasm.
== END 2018-05-05 14:13 | disposition home or self-care (01) ==
LOC: BICMAMMO 14:12
PROVIDERS: ATTEND Family Medicine
DX: J40 Bronchitis, not specified as acute or chronic (principal); N63.20 Unspecified lump in the left breast, unspecified quadrant
CPT/HCPCS: 71046; 77066; G0279

== ENCOUNTER 2018-05-05 23:10 | Emergency (ER) | payer OTHER ==
[2018-05-05] MEDS ORDERED: Furosemide 40 MG/4 ML VIAL ONE (23:22)
[2018-05-05] MEDS ORDERED: Nitroglycerin 2% Ointment 1 INCH/1 GM Packet ONE (23:36)
[2018-05-05 23:45] LABS: #Eosinphils 0.1 thou/uL (0.0-0.7); #Lymphocytes 0.7 thou/uL (1.20-3.40); #Monocytes 0.3 thou/uL (0.11-0.59); #Neutrophils 4.2 thou/uL (1.40-6.50); %Eosinophils 1.7 % (0.0-10.0); %Lymphocytes 13.6 % (21.0-51.0); %Neutrophils 79.7 % (42.0-75.0); Hemoglobin 14.3 g/dL (12.0-16.0); Mean Corpuscular Hemoglobin 29.1 pg (27.0-31.0); Mean Corpuscular Volume 96.9 fL (78.0-98.0); Mean Platelet Volume 9.5 fL (7.4-10.4); Platelet Count 192 thou/uL (130-400); RBC Distribution Width 15.1 % (11.5-14.5); Red Blood Cell (RBC) Count 4.92 mill/uL (4.20-5.40); White Blood Cell (WBC) Count 5.2 thou/uL (4.8-10.8)
--- NOTE | 2018-05-05 23:47 | RAD ---
PORTABLE AP CHEST X-RAY 05/05/18 HISTORY: Dyspnea and shortness of breath. COMPARISON: 05/03/18. FINDINGS: The cardiac silhouette is magnified by projection. It is at the upper limits of normal to borderline enlarged. Pulmonary vasculature is within normal limits. Lungs are clear. No other interval change fr om prior study. IMPRESSION: 1. No acute cardiopulmonary process. 2. Upper limits of normal to borderline cardiomegaly. POS: [facility]
[2018-05-06 00:42] LABS: Albumin 3.5 g/dL (3.5-5.0)
[2018-05-06 00:43] LABS: Chloride 98 mmol/L (98-107); Potassium 4.3 mmol/L (3.5-5.1)
[2018-05-06 00:44] LABS: Calcium 9.1 mg/dL (7.8-10.44); Sodium 136 mmol/L (136-145)
[2018-05-06 00:45] LABS: Globulin 3.8 g/dL (2.4-3.5); Glucose 139 mg/dL (70-105); Protein, Total 7.3 g/dL (6.0-8.3)
[2018-05-06 00:46] LABS: Anion Gap 14 mmol/L (10-20); Carbon Dioxide 28 mmol/L (22-29)
[2018-05-06] MEDS ORDERED: methylPREDNISolone Sod Succ/PF 125 MG/2 ML VIAL ONE (00:46)
[2018-05-06 00:47] LABS: Bilirubin, Total 0.5 mg/dL (0.2-1.2)
[2018-05-06 00:48] LABS: Alkaline Phosphatase 110 U/L (40-150); Calc. Creatinine Clearance 0 mL/min (70-130); Estimated GFR-MDRD 11
[2018-05-06 00:49] LABS: BUN (Urea Nitrogen) 33 mg/dL (9.8-20.1)
[2018-05-06 00:50] LABS: AST (SGOT) 16 U/L (5-34)
[2018-05-06 00:51] LABS: ALT (SGPT) 12 U/L (8-55)
== END 2018-05-06 01:20 | disposition home or self-care (01) ==
LOC: ERS 23:10
DX: J45.901 Unspecified asthma with (acute) exacerbation (principal); I11.0 Hypertensive heart disease with heart failure; I50.9 Heart failure, unspecified; Z87.891 Personal history of nicotine dependence; Z99.2 Dependence on renal dialysis
CPT/HCPCS: 71045; 80053; 84484; 85025; 93005; 96374; 96375; J1940; J2930; J7620

== ENCOUNTER 2018-05-09 23:01 | Observation (INO) | payer OTHER ==
--- NOTE | 2018-05-09 23:38 | RAD ---
AP VIEW CHEST: 05/09/18 HISTORY: Dyspnea. 53-year-old with history of dialysis. AP view chest is obtained on 05/09/18. Comparison made to previous exam from 05/05/18. AP view chest demonstrates mild cardiomegaly. Mild pulmonary vascular congestion seen. No evidence of effusions, pneumonia or pneumothorax seen. IMPRESSION: Cardiomegaly and mild pulmonary vascular congestion. No acute intrathoracic abnormality seen. POS: [facility]
[2018-05-09 23:59] LABS: Hemoglobin 14.4 g/dL (12.0-16.0); Mean Corpuscular HGB CONC 31.5 g/dL (32.0-36.0); Mean Corpuscular Hemoglobin 30.3 pg (27.0-31.0); Mean Corpuscular Volume 96.1 fL (78.0-98.0); Mean Platelet Volume 8.9 fL (7.4-10.4); Platelet Count 214 thou/uL (130-400); RBC Distribution Width 14.8 % (11.5-14.5); Red Blood Cell (RBC) Count 4.75 mill/uL (4.20-5.40); White Blood Cell (WBC) Count 6.4 thou/uL (4.8-10.8)
[2018-05-10 00:09] LABS: ALT (SGPT) 20 U/L (8-55); AST (SGOT) 22 U/L (5-34); Albumin 3.8 g/dL (3.5-5.0); Alkaline Phosphatase 107 U/L (40-150); Anion Gap 19 mmol/L (10-20); BUN (Urea Nitrogen) 60 mg/dL (9.8-20.1); Bilirubin, Total 0.5 mg/dL (0.2-1.2); CK (CPK) 42 U/L (29-168); Calc. Creatinine Clearance 0 mL/min (70-130); Carbon Dioxide 26 mmol/L (22-29); Chloride 102 mmol/L (98-107); Estimated GFR-MDRD 9; Globulin 3.9 g/dL (2.4-3.5); Glucose 101 mg/dL (70-105); Lipase 72 U/L (8-78); Potassium 3.9 mmol/L (3.5-5.1); Protein, Total 7.7 g/dL (6.0-8.3); Sodium 143 mmol/L (136-145)
[2018-05-10 00:15] LABS: Band 1 % (5-11); Lymphocytes 21 % (21-51); MDiff Complete? YES; Monocytes 8 % (0-10); Neutrophil 70 % (42-75)
[2018-05-10 00:31] LABS: CKMB 2.1 ng/mL (0-6.6)
[2018-05-10] MEDS ORDERED: Aspirin 325 MG TAB ONE (01:22)
[2018-05-10] MEDS ORDERED: methylPREDNISolone Sod Succ/PF 125 MG/2 ML VIAL ONE (01:22)
[2018-05-10] MEDS ORDERED: Ondansetron PF 4 MG/2 ML Vial ONE (01:22)
[2018-05-10 03:16] LABS: Troponin I 0.026 ng/mL (< 0.028)
[2018-05-10] MEDS ORDERED: Ondansetron ODT 4 MG TAB PO PRN (04:11)
[2018-05-10] MEDS ORDERED: Nitroglycerin 2% Ointment 1 INCH/1 GM Packet TOP PRN ×2 (04:11→07:16)
[2018-05-10] MEDS ORDERED: Acetaminophen 325 MG TAB PO PRN ×2 (04:11→07:16)
[2018-05-10] MEDS ORDERED: Calcium Carbonate 500 MG ChewTAB PO PRN (04:11)
[2018-05-10] MEDS ORDERED: hydrALAZINE 20 MG/ML VIAL SLOW IVP PRN (04:11)
[2018-05-10] MEDS ORDERED: Ondansetron PF 4 MG/2 ML Vial IVP PRN (04:11)
[2018-05-10 04:56] VITALS: BMI 30.6
--- NOTE | 2018-05-10 05:28 | HP ---
PRIMARY CARE PHYSICIAN: Yisel Mcgill MD. PRIMARY ORE TRIMMER: Dr. Gonzalez. CHIEF COMPLAINT: Shortness of breath. HISTORY OF PRESENT ILLNESS: The patient is a 53-year-old female; with end-stage renal disease on hemodialysis, mild persistent asthma, and systemic lupus erythematosus; presented to the emergency room with shortness of breath that is progressively getting worse over the past week. It was associated with significant wheezing and chest tightness. She had cough productive of whitish phlegm. She also noticed significant worsening of bilateral lower extremity swelling. The patient was getting short of breath on [id number] exertion. The shortness of breath was getting worse on lying down flat. She denies any fever or chills. No chest pain, palpitations, lightheadedness, dizziness, or syncope reported. The patient received Solu-Medrol with aspirin and DuoNeb in the emergency room. PAST MEDICAL HISTORY: 1. End-stage renal disease, on hemodialysis Friday, Friday, and Friday. 2. Hypertension. 3. Systemic lupus erythematosus. 4. Anemia secondary to renal insufficiency. 5. Mild persistent asthma. 6. History of CVA. 7. Dyslipidemia. 8. Chronic pain syndrome. PAST SURGICAL HISTORY: 1. Dialysis access. 2. . 3. Appendectomy. ALLERGIES: THE PATIENT IS ALLERGIC TO HUANG INHIBITORS AND CLONIDINE. CURRENT HOME MEDICATIONS: The patient is unable to recall any of her home medications. From review of recent outpatient Pharmacy records indicates that the patient is on; 1. Prednisone 5 mg daily. 2. Elsie as needed. 3. Fluticasone spray daily. 4. Calcium acetate 667 mg daily. 5. Lasix 20 mg b.i.d. SOCIAL HISTORY: The patient currently lives at home with her family. She denies current use of tobacco, alcohol, or drug use. She is a former tobacco user. She has also abused cocaine in the past. FAMILY HISTORY: Negative for premature coronary artery disease. REVIEW OF SYSTEMS: All other review of systems was reviewed and were found negative. PHYSICAL EXAMINATION: VITAL SIGNS: Showed temperature 97.8, respirations 22, pulse rate of 81, blood pressure of 143/101, repeat blood pressure was 111/88, O2 saturation 98% on room air. GENERAL: A 53-year-old female, in mild respiratory distress. HEENT: Head; atraumatic, normocephalic. Sclerae anicteric. Dry mucous membranes. No oral lesion. NECK: Supple. No JVD. No carotid bruit. LUNGS: Showed expiratory wheezing with bibasilar rales. No accessory muscle use. There were scattered rhonchi as well. HEART: S1, S2 present. Regular rate and rhythm. No rubs or gallops appreciated. No significant murmurs. ABDOMEN: Soft, nontender. Bowel sounds present. No rebound or guarding. No costovertebral angle tenderness. EXTREMITIES: No edema or calf tenderness. NEUROLOGY: Grossly nonfocal, moves all 4 extremities. PSYCHIATRY: Alert, awake, and oriented x3. LYMPH NODES: No palpable lymph nodes in the neck. Peripheral vascular radial pulses palpable bilaterally. MUSCULOSKELETAL: No joint swelling or tenderness. SKIN: Warm and dry. LABORATORY FINDINGS: CBC showed WBC 6.4 with hemoglobin 14.4, hematocrit 45.6, and platelet of 214. Chemistry showed sodium 143, potassium 3.9, chloride 102, bicarb 26, BUN 60, creatinine 5.74. Troponin was 0.034. CK-MB 2.1. BNP around 2700. IMAGING STUDIES: Chest x-ray by my review showed cardiomegaly with pulmonary vascular congestion. EKG by my review showed sinus rhythm with left posterior fascicular block. IMPRESSION: 1. Acute respiratory distress. 2. Volume overload. 3. Acute asthma exacerbation. 4. Elevated troponin secondary to demand ischemia/congestive heart failure. 5. End-stage renal disease, on Friday, Friday, and Friday dialysis. Last dialysis was on Friday. 6. Hypertension with hypertensive urgency on ER arrival. 7. Systemic lupus erythematosus, on chronic steroids. 8. Anemia secondary to renal insufficiency. 9. Bilateral lower extremity edema due to volume overload. 10. Secondary hyperparathyroidism. 11. Dyslipidemia. 12. History of cerebrovascular accident in the past. PLAN: The patient will be monitored as a 23-hour observation. Nephrology will be consulted for probable extra hemodialysis today. We will continue nebulizer treatments every 4 hourly. We will add Pulmicort. We will also add doxycycline for possible acute bronchitis. Continue home dose of prednisone. Confirm other home medications. The patient can probably be discharged in 24 hours if stable. Plan of care was discussed with the patient in detail, she stated understanding. Job ID: [id number]
[2018-05-10] MEDS ORDERED: predniSONE 20 MG TAB PO SCH (08:00)
[2018-05-10] MEDS: Budesonide 0.5 MG/2 ML NEB INH SCH ×2 (08:24→19:04)
[2018-05-10] MEDS: hydrOXYzine 10 MG TAB PO PRN ×2 (08:39→16:38)
[2018-05-10] MEDS ORDERED: Doxycycline 100 MG CAP PO SCH (09:00)
[2018-05-10] MEDS ORDERED: Famotidine 20 MG TAB PO SCH (09:00)
[2018-05-10 11:55] VITALS: TEMP 97.8
[2018-05-10 15:37] VITALS: BP 163/101
--- NOTE | 2018-05-10 16:05 | CON ---
DATE OF CONSULTATION: REASON FOR CONSULTATION: Stage 6 chronic kidney disease with edema. HISTORY OF PRESENT ILLNESS: This is a very pleasant 53-year-old female, who presented to the hospital today for increasing dyspnea. The patient has bilateral lower extremity swelling and has orthopnea. The patient denies no chest pain. The patient denies any nausea or vomiting. PAST MEDICAL HISTORY: End-stage renal disease, hypertension, SLE, CKD, CVA, hyperlipidemia, developmental disorder, dialysis access surgery, , appendectomy, tunneled dialysis catheter, history of kidney biopsy. ALLERGIES: REVIEWED. HOME MEDICATIONS: List reviewed. REVIEW OF SYSTEMS: 15-point review of system was performed, negative except for what was noted above. NECK: No swelling or lumps. NOSE: No epistaxis or discharge. EYES: No diplopia or pain. MUSCULOSKELETAL: No joint pain. NEUROPSYCHIATIC SYSTEMS: No suicidal ideation. No ideation. SKIN: Denies any rash or ulcer. CONSTITUTIONAL: No fever or chills. SOCIAL HISTORY: No alcohol or drug use. FAMILY HISTORY: Negative for ESRD. PHYSICAL EXAMINATION: GENERAL: The patient is awake and alert. VITAL SIGNS: Afebrile, pulse 85, breathing 16, blood pressure 143/101. GENERAL APPEARANCE AND MENTAL STATUS: Fair. HEAD/NECK: Normocephalic. Atraumatic. EYES: EOMI. No deformity. EARS: Clear. No ulcers. NOSE: Intact. No lesions. MOUTH: Clear. No discharge. THROAT: Clear. No exudate. LUNGS: Clear. No crackles. CARDIAC: S1, S2. No rub. ABDOMEN: Benign. Bowel sounds positive. GENITALIA/RECTUM: Devries absent. BACK/EXTREMITIES: Lower extremities have 3+ edema. NEUROLOGICAL: Alert and motor intact. LABORATORY DATA: Labs showed hemoglobin 14.4 and potassium 3.9. IMPRESSION: 1. Stage 6 chronic kidney disease, plan dialysis. 2. Hypertension, stable. 3. Anemia, stable. 4. Edema, plan dialysis. Job ID: [id number]
[2018-05-10 16:20] LABS: HBSAg Index 0.22 S/CO (0-0.99); Hep B Surf Ag Non-Reactive S/CO (NonReactive)
--- NOTE | 2018-05-11 01:12 | DIS ---
DATE OF ADMISSION: 05/10/2018 DATE OF DISCHARGE: 05/10/2018 ALLERGIES: HUANG INHIBITORS, CLONIDINE, AND NITROGLYCERIN. CHIEF COMPLAINT: Shortness of breath. FINAL DIAGNOSES: 1. Shortness of breath secondary to volume overload, status post dialysis with 3 L removed, resolved. 2. End-stage renal disease, on dialysis. 3. Mild persistent asthma. 4. Systemic lupus erythematosus. 5. Anemia of chronic disease. 6. History of cerebrovascular accident. 7. Hypertension. PROCEDURES PERFORMED: Dialysis with 3 L fluid removal. LABORATORY RESULTS: White blood cell count 6.4, red blood cell count 4.7, hemoglobin 14.4, hematocrit 45.6, and MCH 30.3. Sodium 143, potassium 3.9, chloride 102, BUN 60, and creatinine 5.74. BNP was significantly elevated at 2600. Troponin 0.034, 0.026 respectively. Hep B serum antigen nonreactive. IMAGING RESULTS: Chest x-ray performed on 05/09/2018 showed cardiomegaly and mild vascular pulmonary congestion. The patient did have a right lower extremity vascular ultrasound on 04/17/2018, which showed no evidence of right lower extremity DVT. CONSULTATION: Dr. Gonzalez of Nephrology. HOSPITAL COURSE: The patient is a pleasant 53-year-old female with past medical history significant for end-stage renal disease, on dialysis Friday , Friday, Friday; SLE, hypertension, history of cerebrovascular accident with mild cognitive deficit, and mild persistent asthma, who presented to the hospital with complaints of shortness of breath. She did present to the ER on 2 other occasions this week with these complaints as well. She was admitted for extra dialysis session, and breathing treatments. Dr. Sousa was consulted, who recommended extra dialysis session. She underwent dialysis today and tolerated it well with 3 L of fluid removal. Her edema is significantly improved. Her shortness of breath is markedly improved. Her mother is at bedside and care is discussed. PHYSICAL EXAMINATION: VITAL SIGNS: Blood pressure 141/106, pulse 73, and O2 saturation is 94% on room air. GENERAL: This is a mildly obese female, in no acute distress. HEENT: Poor dentition. Head is atraumatic, normocephalic. NECK: Supple. No JVD. No carotid bruits. Trachea is midline. RESPIRATORY: Regular respiratory rate and pattern, overall clear, her wheezes have completely resolved since dialysis. CV: S1, S2. Regular rate and rhythm. No appreciable murmurs, rub, or gallops. GI: Soft, nontender, normal bowel sounds. PERIPHERAL VASCULAR: On arrival, she had +2 pitting edema left and +3 pitting edema right, status post dialysis. Her edema is markedly improved, +1 on the left and +1/+2 on the right. NEUROLOGIC: She is awake and alert. She is nonfocal. SKIN: Warm and dry. No obvious rashes. CONDITION AT DISCHARGE: Stable. DISCHARGE MEDICATIONS: 1. Albuterol inhaler p.r.n. wheezing. 2. Benzonatate 100 mg capsule one tablet p.o. t.i.d. 3. Calcium acetate 667 mg tablet one tablet p.o. t.i.d. 4. Furosemide 20 mg tablet one p.o. b.i.d. 5. Hydralazine 100 mg tablet one tablet p.o. t.i.d. 6. Hydrocodone 10/325 one tablet p.o. q.6 hours p.r.n. 7. Prednisone 5 mg tablet one tablet daily. 8. Torsemide 100 mg tablet one tablet p.o. daily. 9. She will be sent home with doxycycline 100 mg capsule one tablet p.o. b.i.d. for the next 7 days. DISCHARGE DISPOSITION: Home. PLAN: The patient will present for her regularly scheduled dialysis session tomorrow, per Dr. Gonzalez. She will continue her p.r.n. breathing treatments for asthma. She has been sent home on a prophylactic antibiotics for acute bronchitis. She will follow with her primary care physician and return to the ER if symptoms recur. Plan discussed with Dr. Vazquez who agrees with the above. Job ID: [id number] [facility]
== END 2018-05-10 19:40 | disposition home or self-care (01) ==
LOC: ERS 23:01 → 2SW 05-10 01:25
PROVIDERS: ADMIT Internal Medicine; ATTEND Internal Medicine
DX: E87.70 Fluid overload, unspecified (principal); I16.0 Hypertensive urgency; I12.0 Hypertensive chronic kidney disease with stage 5 chronic kidney disease or end stage renal disease; N18.6 End stage renal disease; Z99.2 Dependence on renal dialysis; D63.1 Anemia in chronic kidney disease; J45.901 Unspecified asthma with (acute) exacerbation; M32.9 Systemic lupus erythematosus, unspecified; E78.5 Hyperlipidemia, unspecified; G89.4 Chronic pain syndrome; N25.81 Secondary hyperparathyroidism of renal origin; G31.84 Mild cognitive impairment of uncertain or unknown etiology; Z86.73 Personal history of transient ischemic attack (TIA), and cerebral infarction without residual deficits; Z90.49 Acquired absence of other specified parts of digestive tract; Z88.8 Allergy status to other drugs, medicaments and biological substances; Z79.52 Long term (current) use of systemic steroids; Z79.51 Long term (current) use of inhaled steroids; Z79.2 Long term (current) use of antibiotics; Z79.899 Other long term (current) drug therapy; Z98.890 Other specified postprocedural states
CPT/HCPCS: 36415; 71045; 80053; 82550; 82553; 83690; 83880; 84484; 85025; 87340; 90935; 93005; 94640; 96374; 96375; G0257; G0378; J2405; J2930; J7620; J7626

== ENCOUNTER 2018-05-22 22:31 | Emergency (ER) | payer OTHER ==
--- NOTE | 2018-05-22 22:50 | RAD ---
FPortable chest: HISTORY: Cough COMPARISON: 05/09/2018 FINDINGS: Lung walsh are clear. Heart size is upper normal and stable.. Vascularity is normal. Visualized osseous structures unremarkable. IMPRESSION: No acute finding
[2018-05-23 02:16] LABS: #Eosinphils 0.2 thou/uL (0.0-0.7); #Lymphocytes 0.9 thou/uL (1.20-3.40); #Monocytes 0.8 thou/uL (0.11-0.59); #Neutrophils 4.6 thou/uL (1.40-6.50); %Basophils 0.2 % (0.0-1.0); %Eosinophils 3.7 % (0.0-10.0); %Lymphocytes 13.1 % (21.0-51.0); %Monocytes 11.9 % (0.0-10.0); %Neutrophils 71.2 % (42.0-75.0); Hemoglobin 13.5 g/dL (12.0-16.0); Mean Corpuscular HGB CONC 31.8 g/dL (32.0-36.0); Mean Corpuscular Volume 94.4 fL (78.0-98.0); Mean Platelet Volume 8.7 fL (7.4-10.4); Platelet Count 178 thou/uL (130-400); RBC Distribution Width 14.7 % (11.5-14.5); White Blood Cell (WBC) Count 6.5 thou/uL (4.8-10.8)
[2018-05-23 02:35] LABS: ALT (SGPT) 17 U/L (8-55); AST (SGOT) 17 U/L (5-34); Albumin 3.7 g/dL (3.5-5.0); Alkaline Phosphatase 114 U/L (40-150); Anion Gap 18 mmol/L (10-20); BUN (Urea Nitrogen) 40 mg/dL (9.8-20.1); Bilirubin, Total 0.7 mg/dL (0.2-1.2); Calc. Creatinine Clearance 0 mL/min (70-130); Calcium 8.5 mg/dL (7.8-10.44); Carbon Dioxide 28 mmol/L (22-29); Chloride 102 mmol/L (98-107); Estimated GFR-MDRD 12; Globulin 3.8 g/dL (2.4-3.5); Glucose 94 mg/dL (70-105); Potassium 4.2 mmol/L (3.5-5.1); Protein, Total 7.5 g/dL (6.0-8.3); Sodium 144 mmol/L (136-145)
== END 2018-05-23 03:39 | disposition home or self-care (01) ==
LOC: ERS 22:31
DX: R06.02 Shortness of breath (principal); I11.0 Hypertensive heart disease with heart failure; I50.9 Heart failure, unspecified; J45.909 Unspecified asthma, uncomplicated; Z87.891 Personal history of nicotine dependence
CPT/HCPCS: 36415; 71045; 80053; 83880; 85025; 93005

== ENCOUNTER 2018-05-27 15:02 | Observation (INO) | payer OTHER ==
[2018-05-27 17:26] LABS: #Eosinphils 0.5 thou/uL (0.0-0.7); #Lymphocytes 0.9 thou/uL (1.20-3.40); #Monocytes 0.7 thou/uL (0.11-0.59); #Neutrophils 4.9 thou/uL (1.40-6.50); %Basophils 0.2 % (0.0-1.0); %Eosinophils 6.8 % (0.0-10.0); %Lymphocytes 12.8 % (21.0-51.0); %Monocytes 10.3 % (0.0-10.0); %Neutrophils 69.9 % (42.0-75.0); Hemoglobin 12.7 g/dL (12.0-16.0); Mean Corpuscular HGB CONC 31.2 g/dL (32.0-36.0); Mean Platelet Volume 8.5 fL (7.4-10.4); Platelet Count 219 thou/uL (130-400); RBC Distribution Width 14.6 % (11.5-14.5); Red Blood Cell (RBC) Count 4.37 mill/uL (4.20-5.40)
--- NOTE | 2018-05-27 17:31 | RAD ---
CHEST ONE VIEW 05/27/18 HISTORY: Lower extremity edema. COMPARISON: 05/22/17. FINDINGS: Upper normal cardiac silhouette. Pulmonary vessels and hilum are normal. Costophrenic angles are naomie r. No consolidation or mass. No pneumothorax or osseous abnormalities. IMPRESSION: No acute cardiopulmonary process. POS: [facility]
[2018-05-27 17:55] LABS: ALT (SGPT) 16 U/L (8-55); AST (SGOT) 18 U/L (5-34); Albumin 3.7 g/dL (3.5-5.0); Alkaline Phosphatase 121 U/L (40-150); Anion Gap 18 mmol/L (10-20); BUN (Urea Nitrogen) 21 mg/dL (9.8-20.1); Bilirubin, Total 0.8 mg/dL (0.2-1.2); Calc. Creatinine Clearance 0 mL/min (70-130); Carbon Dioxide 26 mmol/L (22-29); Chloride 101 mmol/L (98-107); Estimated GFR-MDRD 18; Globulin 3.4 g/dL (2.4-3.5); Glucose 81 mg/dL (70-105); Potassium 3.7 mmol/L (3.5-5.1); Protein, Total 7.1 g/dL (6.0-8.3); Sodium 141 mmol/L (136-145)
[2018-05-27] MEDS ORDERED: Furosemide 40 MG/4 ML VIAL ONE (19:33)
[2018-05-27] MEDS ORDERED: Aspirin Chewable 81 MG TAB ONE (19:33)
[2018-05-27 21:03] LABS: Troponin I 0.037 ng/mL (< 0.028)
[2018-05-28 00:08] LABS: Troponin I 0.024 ng/mL (< 0.028)
[2018-05-28 00:43] VITALS: BMI 29.0
[2018-05-28] MEDS ORDERED: Ondansetron PF 4 MG/2 ML Vial IVP PRN (00:44)
[2018-05-28] MEDS ORDERED: Acetaminophen 650 MG Suppository PR PRN (00:44)
[2018-05-28] MEDS ORDERED: Ondansetron ODT 4 MG TAB PO PRN (00:44)
[2018-05-28] MEDS ORDERED: Acetaminophen 325 MG TAB PO PRN (00:44)
[2018-05-28] MEDS ORDERED: diphenhydrAMINE 25 MG CAP PO SCH (00:45)
[2018-05-28] MEDS ORDERED: Benzonatate 100 MG CAP PO PRN (00:47)
[2018-05-28] MEDS ORDERED: PROVENTIL INHALER 6.7 G (200 INHALATIONS) INH PRN (00:47)
[2018-05-28] MEDS ORDERED: HYDROcodone/Acetaminophen 10/325 mg Tablet PO PRN (00:47)
[2018-05-28] MEDS: hydrOXYzine 25 MG TAB PO PRN ×2 (01:08→08:56)
--- NOTE | 2018-05-28 02:56 | PDOC.EVN ---
Event Note - Event Note Event Note: ADDENDUM: If Venous doppler negative, pursue CTA to rule out PE followed by HD. Consult placed to Dr. Gonzalez. As per discussion with Dr. Johnson.
[2018-05-28 04:52] LABS: #Basophils 0.1 thou/uL (0.0-0.2); #Eosinphils 0.5 thou/uL (0.0-0.7); #Lymphocytes 0.9 thou/uL (1.20-3.40); #Monocytes 0.9 thou/uL (0.11-0.59); #Neutrophils 3.7 thou/uL (1.40-6.50); %Basophils 1.2 % (0.0-1.0); %Eosinophils 8.6 % (0.0-10.0); %Monocytes 14.6 % (0.0-10.0); %Neutrophils 60.6 % (42.0-75.0); Hemoglobin 12.6 g/dL (12.0-16.0); Mean Corpuscular HGB CONC 31.3 g/dL (32.0-36.0); Mean Corpuscular Hemoglobin 29.7 pg (27.0-31.0); Mean Corpuscular Volume 94.7 fL (78.0-98.0); Mean Platelet Volume 8.9 fL (7.4-10.4); Platelet Count 194 thou/uL (130-400); RBC Distribution Width 14.8 % (11.5-14.5); Red Blood Cell (RBC) Count 4.25 mill/uL (4.20-5.40)
[2018-05-28 05:07] LABS: Anion Gap 16 mmol/L (10-20); BUN (Urea Nitrogen) 28 mg/dL (9.8-20.1); Calc. Creatinine Clearance 17 mL/min (70-130); Calcium 9.3 mg/dL (7.8-10.44); Carbon Dioxide 26 mmol/L (22-29); Chloride 102 mmol/L (98-107); Estimated GFR-MDRD 15; Glucose 89 mg/dL (70-105); Potassium 3.9 mmol/L (3.5-5.1); Sodium 140 mmol/L (136-145)
--- NOTE | 2018-05-28 05:47 | HP ---
CHIEF COMPLAINT: Shortness of breath. HISTORY OF PRESENT ILLNESS: Ms. Bearden is a very pleasant 53-year-old woman with end-stage renal disease, who is on dialysis and presents with increased shortness of breath that came on suddenly this afternoon. She states she received dialysis earlier today and it had to be stopped an hour early because she was quite fidgety and unable to sit still. The patient states she frequently has issues with itching and premedicates with Atarax before undergoing dialysis. She was advised to come into the ER due to increased lower extremity swelling, which was more prominent in the right leg and is not typical for her. The patient states that she tends to drag up or fall like when she walks due to residual weakness from a previous stroke, but it is not usually . She denies having any pain or trauma. The patient states she refused to come into the ER and decided to go home instead. She later went grocery shopping and when she returned home with her groceries experienced sudden severe shortness of breath. She denies any associated chest pain. She did feel lightheaded. Her breathing has since settled, but she still feels more short of breath than usual. She has received Lasix 80 mg IV x1 in the ER due to concerns for fluid overload given the lower extremity edema. She underwent a chest x-ray in the ER that showed no acute cardiopulmonary process. No consolidation or mass. Clear costophrenic angles. REVIEW OF SYSTEMS: The patient denies having any recent fevers, chills, or sweats. Denies having any headaches or dizziness. Has not had any abdominal pain or cramping. She does suffer from abdominal distention, but today she states it feels better than it usually is. Reports normal sensation in bilateral lower extremities. She does complain of severe itching all over, which is chronic for her. All other review of systems apart from those mentioned above in HPI are negative. PAST MEDICAL HISTORY: 1. Previous CVA with residual right lower extremity weakness. 2. CHF. 3. Systemic lupus. 4. Hypertension. 5. Pulmonary disease. 6. Asthma. 7. End-stage renal disease, on dialysis Friday, Friday, Friday. PAST SURGICAL HISTORY: 1. Umbilical hernia repair. 2. Dialysis shunt to left upper extremity. 3. Shunt to right upper extremity, not in use. 4. . 5. Appendectomy. SOCIAL HISTORY: The patient denies any alcohol use. She previously used cocaine. She quit smoking one year ago. She currently lives at home and her mother who lives on the same street. ALLERGIES: 1. HUANG INHIBITORS CAUSES ITCHING. 2. CLONIDINE CAUSES ITCHING. 3. NITROGLYCERIN. CURRENT MEDICATIONS: 1. Calcium acetate. 2. Benzonatate. 3. Hydrocodone. 4. Albuterol sulfate. 5. Prednisone. 6. Hydroxyzine. 7. Furosemide. PHYSICAL EXAMINATION: GENERAL: The patient appears well developed, in no acute distress. VITAL SIGNS: Temperature 97.8, pulse 83, respirations 22, O2 saturation 100% on room air, BP 166/103. HEENT: Normocephalic and atraumatic. Pupils are equal, round, and reactive to light. Sclerae without icterus. Oropharynx clear. NECK: Supple. LUNGS: Clear to auscultation bilaterally without any wheezes, rales, or rhonchi. CARDIAC: Regular rate and rhythm. ABDOMEN: Soft, slightly distended, but no tenderness. No guarding or rigidity. No renal angle tenderness. EXTREMITIES: Notable for +3 pitting edema with the right lower extremity more swollen than the left. Mild calf discomfort. NEUROLOGIC: Alert and oriented x3. SKIN: Without rash or jaundice. LABORATORY DATA: White blood count 7, hemoglobin 12.7, hematocrit 40.6, platelets 219. Sodium 141, potassium 3.7, chloride 101, carbon dioxide 26, anion gap 18, BUN 21, creatinine 3.24, GFR 18, total bilirubin 0.8, AST 18, ALT 16, and alkaline phosphatase 121. Troponin 0.013, 0.024. BNP 2144.7. Last BNP done last week elevated at 2618.1. IMAGING DATA: As mentioned above in HPI. Chest x-ray is unremarkable. IMPRESSION AND PLAN: Ms. Bearden is a pleasant 53-year-old woman who is being admitted for management of the following. 1. Shortness of breath. The patient has received IV Lasix in the ED due to concerns for fluid overload. Chest x-ray is unremarkable. BNP slightly raised from the baseline. Lungs are clear. She has been tachypneic at . Heart rate normal. Given the right lower extremity swelling, there is a suspicion for DVT/PE. We will request bilateral venous Doppler. Continue to monitor O2 saturation. We will prescribe DuoNebs. 2. Pruritus. The patient is complaining of severe itching all over, which tends to occur after dialysis. We will continue Atarax for pruritus. 3. Hypertension. Resume home medications. Monitor blood pressure. 4. Systemic lupus. Resume prednisone. 5. Gastrointestinal prophylaxis. 6. Deep venous thrombosis prophylaxis. No mechanical SCDs given lower extremity edema. Hold on anticoagulation as she is undergoing workup for suspected DVT/PE. 7. Code status DNAR. The patient states if anything were to happen such as her heart stopping, she would want to be "let go." She states she feels she has lived a full life. The patient's case was discussed with Dr. Johnson, who agrees with plan of care as described above. Job ID: [id number]
[2018-05-28] MEDS ORDERED: hydrALAZINE 20 MG/ML VIAL SLOW IVP PRN ×2 (07:20→11:20)
[2018-05-28] MEDS ORDERED: Labetalol HCl 100 MG/20 ML VIAL SLOW IVP PRN (07:21)
--- NOTE | 2018-05-28 08:07 | ULT ---
BILATERAL LOWER EXTREMITY VENOUS ULTRASOUND WITH DOPPLER: History: Pain. Edema. CHF. Comparison: None. Technique: Grayscale, color flow, doppler and spectral waveform analysis was performed of the right a nd left lower extremity venous system. FINDINGS: Bilaterally there is compressibility, presence of flow and augmentation of the common femoral vein, f emoral vein, and popliteal veins. There is flow in bilateral greater saphenous veins, profunda veins, and posterior tibial veins. There is bilateral lower extremity edema. IMPRESSION: No evidence of thrombus in either lower extremity system. POS: [facility]
[2018-05-28] MEDS: Furosemide 20 MG TAB PO SCH ×2 (08:56→20:52)
[2018-05-28] MEDS: Famotidine 20 MG TAB PO SCH ×2 (08:56→20:52)
[2018-05-28] MEDS: predniSONE 5 MG TAB PO SCH (08:56)
--- NOTE | 2018-05-28 11:21 | NM ---
FNuclear Medicine Ventilation/Perfusion Scan: Indication: Short of breath Reference is made to preceding day's chest radiograph Right pharmaceutical: 5.7 mCi technetium 99 M MAA IV, 18.1 mCi xenon inhaled FINDINGS: There is mild heterogeneity of the ventilation imaging with reduced activity at the left ap ex. No significant retention on delayed imaging present. There is transient photopenic artifact at th e left upper chest. Perfusion imaging does not reveal a significant moderate or large perfusion defect although there is generalized reduced activity demonstrated at the upper lungs bilaterally, in an artifactual appearanc e. This does limit sensitivity of the exam. IMPRESSION: Low probability VQ scan. There is presumed artifactual reduction of perfusion activity at the upper chest bilaterally. Otherwise no moderate or large perfusion defect is identified. Transcribed Date/Time: 05/28/2018 11:33 AM
--- NOTE | 2018-05-28 11:33 | CON ---
DATE OF CONSULTATION: 05/28/2018 CONSULTING PHYSICIAN: Dr. Ann. REASON FOR CONSULT: End-stage renal disease evaluation. REASON FOR ADMISSION: Shortness of breath. HISTORY OF PRESENT ILLNESS: This is a 53-year-old female with a history of end-stage renal disease, lupus, hypertension, came to the hospital with shortness of breath and is being evaluated. The patient has been not having good dialysis for last few days and has been fluid overloaded. No fever, chills. PAST MEDICAL HISTORY: Positive for CVA, CHF, lupus, hypertension, asthma, end-stage renal disease. PAST SURGICAL HISTORY: Umbilical and hernia repair, dialysis shunt placement, , appendectomy. HOME MEDICATIONS: PhosLo, benzonatate, hydrocodone, albuterol, prednisone, hydroxyzine, furosemide. ALLERGIES: HUANG INHIBITOR, CLONIDINE, NITROGLYCERIN. SOCIAL HISTORY: No smoking, alcohol, or illicit drug abuse. History of cocaine use in the past. FAMILY HISTORY: No history of kidney disease. REVIEW OF SYSTEMS: negative. PHYSICAL EXAMINATION: GENERAL: This is a well-built female, in no apparent distress. VITAL SIGNS: Temperature pulse 87, respiratory rate 16, blood pressure 167/116. HEENT: Atraumatic and normocephalic. Oral mucosa is moist. NECK: Supple. CV: S1 and S2 heard. Rate and rhythm regular. RESPIRATORY: Clear. GI: Abdomen is soft. MUSCULOSKELETAL: 2+ edema. DERMATOLOGIC: No skin rash. NEUROLOGIC: Alert and awake. PSYCHIATRIC: Normal mood and affect. LABORATORY DATA: Hemoglobin 12.6, potassium 3.9, BUN is 28, creatinine is 3.7. ASSESSMENT AND PLAN: 1. End-stage renal disease. Continue on hemodialysis as tolerated. 2. Edema. Remove fluid. 3. Fluid overload. 4. Hypertension. 5. Anemia. 6. History of lupus. PLAN: To continue on dialysis as tolerated. Job ID: [id number]
--- NOTE | 2018-05-28 17:02 | PDOC.EVN ---
Event Note - Event Note Event Note: Patient venous doppler negative and VQ showing low probability of PE. She denies chest pain, but does report some shortness of breath and appears to be a little fluid overloaded. She will undergo dialysis today. BPs have been elevated , therefore added prn antihypertensives. Last echo did show preserved EF with diastolic dysfunction. Will hold discharge today and reaccess in am and if BPs better and stable, likely discharged home tomorrow. Will discuss with nephrology to see if she would benefit from dialysis run again tomorrow.
[2018-05-28] MEDS ORDERED: hydrALAZINE 10 MG TAB PO SCH (17:15)
[2018-05-29] MEDS: hydrOXYzine 25 MG TAB PO PRN ×2 (04:18→13:01)
[2018-05-29] MEDS ORDERED: Amlodipine 5 MG TAB PO SCH (09:00)
[2018-05-29] MEDS: Famotidine 20 MG TAB PO SCH (09:06)
[2018-05-29] MEDS: predniSONE 5 MG TAB PO SCH (09:06)
[2018-05-29] MEDS: Furosemide 20 MG TAB PO SCH (09:07)
--- NOTE | 2018-05-29 16:09 | PRG ---
DATE OF SERVICE: 05/29/2018 SUBJECTIVE: Patient was seen and examined at bedside and overnight events noted. Patient denies any shortness of breath or chest pain or palpitation. No history of nausea or vomiting or diarrhea or fever or chills or cramps. OBJECTIVE: GENERAL: This is a well-built female, in no apparent distress. VITAL SIGNS: Temperature 98.6. Heart rate 72. Respiratory rate 18. Blood pressure 144/113. HEENT: Atraumatic, normocephalic. Oral mucosa is moist NECK: Supple. CARDIOVASCULAR: S1, S2 heard. Rate and rhythm regular. RESPIRATORY: Clear to auscultation. GASTROINTESTINAL: Abdomen is soft. MUSCULOSKELETAL: No tenderness. No edema. DERMATOLOGIC: No skin rash. NEUROLOGIC: Alert and awake and oriented X3. No focal neurologic deficits. Moving all the extremities. PSYCHIATRIC: Mood and affect normal. LABORATORY DATA: Not done today. ASSESSMENT AND PLAN: 1. End-stage renal disease. Continue on dialysis. 2. Edema. Remove fluid. 3. Fluid overload. 4. Hypertension. 5. Anemia. 6. History of lupus. 7. Continue dialysis on Friday, Friday, and Friday. 8. Limit fluid and salt intake. Job ID: [id number]
[2018-05-29] MEDS ORDERED: diphenhydrAMINE 50 MG/ML VIAL IVP PRN (16:44)
[2018-05-29 18:30] VITALS: BP 118/52; TEMP 97.9
== END 2018-05-29 18:32 | disposition home or self-care (01) ==
LOC: ERS 15:02 → 2SW 22:46 → IMCU/EMU 05-29 03:10 → 2SW 05-29 14:09
PROVIDERS: ADMIT Family Medicine; ATTEND Family Medicine
DX: I13.2 Hypertensive heart and chronic kidney disease with heart failure and with stage 5 chronic kidney disease, or end stage renal disease (principal); N18.6 End stage renal disease; I50.9 Heart failure, unspecified; D63.1 Anemia in chronic kidney disease; E87.70 Fluid overload, unspecified; I69.341 Monoplegia of lower limb following cerebral infarction affecting right dominant side; M32.9 Systemic lupus erythematosus, unspecified; J45.909 Unspecified asthma, uncomplicated; Z66 Do not resuscitate; Z87.891 Personal history of nicotine dependence; Z88.8 Allergy status to other drugs, medicaments and biological substances; Z79.52 Long term (current) use of systemic steroids; Z79.899 Other long term (current) drug therapy; Z99.2 Dependence on renal dialysis
CPT/HCPCS: 36415; 71045; 78582; 80048; 80053; 83880; 84484; 85025; 90935; 93005; 93970; 94640; 96374; 96375; A9540; A9558; G0257; G0378; J0360; J1200; J1940; J7512; J7620; Q0163

== ENCOUNTER 2018-06-03 07:41 | Day surgery (SDC) | payer OTHER ==
[2018-06-02 14:50] VITALS: BMI 28.3
== END 2018-06-03 08:20 | disposition short-term general hospital (02) ==
LOC: SPEC 07:41
PROVIDERS: ATTEND Internal Medicine Nephrology
PROC: B50W1ZZ Plain Radiography of Dialysis Shunt/Fistula using Low Osmolar Contrast (ICD-10-PCS; principal; 2018-06-03)
DX: I77.0 Arteriovenous fistula, acquired (principal); I13.2 Hypertensive heart and chronic kidney disease with heart failure and with stage 5 chronic kidney disease, or end stage renal disease; N18.6 End stage renal disease; I50.9 Heart failure, unspecified; J45.909 Unspecified asthma, uncomplicated; M32.9 Systemic lupus erythematosus, unspecified

== ENCOUNTER 2018-06-03 08:39 | Emergency (ER) | payer OTHER ==
[2018-06-03 09:08] LABS: #Basophils 0.1 thou/uL (0.0-0.2); #Eosinphils 0.2 thou/uL (0.0-0.7); #Lymphocytes 1.4 thou/uL (1.20-3.40); #Monocytes 1.3 thou/uL (0.11-0.59); #Neutrophils 6.1 thou/uL (1.40-6.50); %Basophils 0.6 % (0.0-1.0); %Lymphocytes 15.6 % (21.0-51.0); %Monocytes 14.5 % (0.0-10.0); %Neutrophils 67.4 % (42.0-75.0); Hemoglobin 13.4 g/dL (12.0-16.0); Mean Corpuscular HGB CONC 31.7 g/dL (32.0-36.0); Mean Corpuscular Hemoglobin 30.1 pg (27.0-31.0); Mean Platelet Volume 8.3 fL (7.4-10.4); Platelet Count 288 thou/uL (130-400); RBC Distribution Width 15.3 % (11.5-14.5); Red Blood Cell (RBC) Count 4.45 mill/uL (4.20-5.40)
--- NOTE | 2018-06-03 09:16 | RAD ---
EXAM: Chest PA and lateral: HISTORY: Cough COMPARISON: 05/05/2018 FINDINGS: Heart: Normal Aorta: Unremarkable Pulmonary vessels: Normal Costophrenic angles: Costophrenic angles are clear. Lungs: No consolidation or masses. Chronic changes lung bases. Mild hyperinflation. Pneumothorax: No pneumothorax Osseous structures: No osseous abnormalities IMPRESSION: Chronic changes in the lung bases. Hyperinflation.
[2018-06-03 09:26] LABS: ALT (SGPT) 14 U/L (8-55); AST (SGOT) 16 U/L (5-34); Albumin 3.8 g/dL (3.5-5.0); Alkaline Phosphatase 114 U/L (40-150); Anion Gap 19 mmol/L (10-20); BUN (Urea Nitrogen) 59 mg/dL (9.8-20.1); Bilirubin, Total 0.5 mg/dL (0.2-1.2); Calc. Creatinine Clearance 0 mL/min (70-130); Calcium 9.1 mg/dL (7.8-10.44); Carbon Dioxide 21 mmol/L (22-29); Chloride 106 mmol/L (98-107); Estimated GFR-MDRD 7; Globulin 4.1 g/dL (2.4-3.5); Glucose 105 mg/dL (70-105); Potassium 3.7 mmol/L (3.5-5.1); Protein, Total 7.9 g/dL (6.0-8.3); Sodium 142 mmol/L (136-145)
[2018-06-03 09:48] LABS: CKMB 3.1 ng/mL (0-6.6)
[2018-06-03] MEDS ORDERED: predniSONE 20 MG TAB ONE (09:50)
== END 2018-06-03 11:29 | disposition home or self-care (01) ==
LOC: ERS 08:39
DX: J44.1 Chronic obstructive pulmonary disease with (acute) exacerbation (principal); I11.0 Hypertensive heart disease with heart failure; I50.9 Heart failure, unspecified; Z87.891 Personal history of nicotine dependence
CPT/HCPCS: 36415; 71046; 80053; 82553; 83880; 84484; 85025; 93005; 94640; J7620

== ENCOUNTER 2018-07-17 12:09 | Emergency (ER) | payer OTHER ==
[2018-07-17] MEDS ORDERED: hydrOXYzine 25 MG TAB ONE (13:49)
== END 2018-07-17 14:10 | disposition home or self-care (01) ==
LOC: ERS 12:09
DX: L29.9 Pruritus, unspecified (principal); I13.0 Hypertensive heart and chronic kidney disease with heart failure and stage 1 through stage 4 chronic kidney disease, or unspecified chronic kidney disease; N18.9 Chronic kidney disease, unspecified; I50.9 Heart failure, unspecified; J45.909 Unspecified asthma, uncomplicated; Z99.2 Dependence on renal dialysis; Z87.891 Personal history of nicotine dependence
CPT/HCPCS: 99282

== ENCOUNTER 2018-10-27 21:12 | Emergency (ER) | payer OTHER ==
[2018-10-27 22:07] LABS: #Eosinphils 0.1 thou/uL (0.0-0.7); #Lymphocytes 0.5 thou/uL (1.20-3.40); #Monocytes 0.5 thou/uL (0.11-0.59); #Neutrophils 4.8 thou/uL (1.40-6.50); %Lymphocytes 9.3 % (21.0-51.0); %Monocytes 7.9 % (0.0-10.0); %Neutrophils 81.8 % (42.0-75.0); Hemoglobin 12.7 g/dL (12.0-16.0); Mean Corpuscular HGB CONC 32.8 g/dL (32.0-36.0); Mean Corpuscular Volume 88.5 fL (78.0-98.0); Mean Platelet Volume 8.3 fL (7.4-10.4); Platelet Count 212 thou/uL (130-400); RBC Distribution Width 14.1 % (11.5-14.5); Red Blood Cell (RBC) Count 4.37 mill/uL (4.20-5.40); White Blood Cell (WBC) Count 5.9 thou/uL (4.8-10.8)
--- NOTE | 2018-10-27 22:08 | RAD ---
Chest 2 views HISTORY: Dyspnea. Fluid overload. COMPARISON: 06/03/2018. FINDINGS: Cardiac silhouette is upper limits of normal in size. Pulmonary vasculature is unremarkable . Mediastinum is midline. No confluent airspace consolidation, pneumothorax, or pleural fluid. IMPRESSION: No active cardiopulmonary abnormalities are demonstrated.
[2018-10-27 22:27] LABS: ALT (SGPT) 15 U/L (8-55); AST (SGOT) 10 U/L (5-34); Albumin 3.7 g/dL (3.5-5.0); Alkaline Phosphatase 79 U/L (40-150); Anion Gap 19 mmol/L (10-20); BUN (Urea Nitrogen) 85 mg/dL (9.8-20.1); Bilirubin, Total 0.3 mg/dL (0.2-1.2); Calc. Creatinine Clearance 0 mL/min (70-130); Calcium 8.8 mg/dL (7.8-10.44); Carbon Dioxide 19 mmol/L (22-29); Chloride 104 mmol/L (98-107); Estimated GFR-MDRD 5; Globulin 3.4 g/dL (2.4-3.5); Glucose 94 mg/dL (70-105); Potassium 5.3 mmol/L (3.5-5.1); Protein, Total 7.1 g/dL (6.0-8.3); Sodium 137 mmol/L (136-145)
[2018-10-27] MEDS ORDERED: hydrOXYzine 25 MG TAB ONE (22:45)
[2018-10-28] MEDS ORDERED: hydrOXYzine 25 MG TAB ONE (00:10)
== END 2018-10-27 23:45 | disposition home or self-care (01) ==
LOC: ERS 21:12
DX: L29.9 Pruritus, unspecified (principal); I11.0 Hypertensive heart disease with heart failure; I50.9 Heart failure, unspecified; J45.909 Unspecified asthma, uncomplicated; Z87.891 Personal history of nicotine dependence
CPT/HCPCS: 36415; 71046; 80053; 83880; 85025; 93005

== ENCOUNTER 2018-11-06 13:33 | Emergency (ER) | payer OTHER ==
[2018-11-06 13:55] LABS: #Lymphocytes 0.6 thou/uL (1.20-3.40); #Monocytes 0.5 thou/uL (0.11-0.59); #Neutrophils 5.3 thou/uL (1.40-6.50); %Basophils 0.2 % (0.0-1.0); %Eosinophils 0.8 % (0.0-10.0); %Monocytes 7.1 % (0.0-10.0); %Neutrophils 81.9 % (42.0-75.0); Hemoglobin 14.3 g/dL (12.0-16.0); Mean Corpuscular HGB CONC 31.9 g/dL (32.0-36.0); Mean Corpuscular Hemoglobin 28.6 pg (27.0-31.0); Mean Corpuscular Volume 89.7 fL (78.0-98.0); Mean Platelet Volume 8.7 fL (7.4-10.4); Platelet Count 234 thou/uL (130-400); RBC Distribution Width 14.7 % (11.5-14.5); Red Blood Cell (RBC) Count 5.01 mill/uL (4.20-5.40); White Blood Cell (WBC) Count 6.4 thou/uL (4.8-10.8)
--- NOTE | 2018-11-06 14:06 | RAD ---
XR Chest 1 View Portable History: Neck pain after dialysis. Comparison: Radiograph October 27, 2018 Findings: Moderate cardiomegaly. No pneumothorax. Trace effusions. No acute osseous abnormality. No evidence for pneumonia. Pulmonary arteries are mildly dilated. Impression: Cardiomegaly with trace pleural effusions. No evidence for pulmonary edema.
[2018-11-06 14:40] LABS: ALT (SGPT) 12 U/L (8-55); AST (SGOT) 16 U/L (5-34); Alkaline Phosphatase 77 U/L (40-150); BUN (Urea Nitrogen) 43 mg/dL (9.8-20.1); Bilirubin, Total 0.5 mg/dL (0.2-1.2); Calc. Creatinine Clearance 0 mL/min (70-130); Calcium 8.9 mg/dL (7.8-10.44); Carbon Dioxide 17 mmol/L (22-29); Chloride 97 mmol/L (98-107); Estimated GFR-MDRD 8; Globulin 4.1 g/dL (2.4-3.5); Glucose 139 mg/dL (70-105); Protein, Total 8.1 g/dL (6.0-8.3); Sodium 135 mmol/L (136-145)
[2018-11-06] MEDS ORDERED: Acetaminophen 500 MG TAB ONE (14:47)
== END 2018-11-06 16:40 | disposition home or self-care (01) ==
LOC: ERS 13:33
DX: M54.2 Cervicalgia (principal); I12.0 Hypertensive chronic kidney disease with stage 5 chronic kidney disease or end stage renal disease; N18.6 End stage renal disease; J45.909 Unspecified asthma, uncomplicated; Z99.2 Dependence on renal dialysis; Z87.891 Personal history of nicotine dependence; Z79.899 Other long term (current) drug therapy
CPT/HCPCS: 71045; 80053; 83605; 84484; 85025; 93005

== ENCOUNTER 2018-11-13 13:01 | Day surgery (SDC) | payer OTHER ==
[2018-11-13] MEDS ORDERED: Sterile Water 10 ML VIAL IVP SCH (13:45)
[2018-11-13] MEDS ORDERED: Activase 2 MG VIAL CATH SCH ×2 (13:45)
[2018-11-13 15:57] VITALS: BMI 28.3
--- NOTE | 2018-11-13 16:34 | SPC ---
PROCEDURE: 1. Left upper extremity fistulogram with left upper extremity venogram including vena cavogram. 2. Thrombolysis with 2 mg TPA used to lyse thrombus in the proximal venous outflow. 3. ASSISTANT NEWS DIRECTOR using an 8 mm balloon angiocatheter at the site of thrombus. 4. Thrombectomy using Kayla catheter. 5. Postprocedure angiogram. INDICATIONS: Unable to dialyze. Fistulogram is requested. FINDINGS: 1. Fistulogram and vena cavogram reveals no thrombus or stenosis at the arterial anastomosis as visua lized with ultrasound. Ultrasound does show evidence of thrombus in the venous outflow in the mid humerus region. Venogram confirms thrombus at this site. There is a stent in this cephalic vein outflow tract in the upper humerus. There is thrombus in the cephalic vein just before the stent and extending into the mo uth of the distal stent. The mid and proximal stent is patent. The more proximal cephalic vein is patent. Subclavian vein appe ars patent. There is stenosis of the brachiocephalic vein. Numerous collaterals arise from the subclavian and pro ximal brachiocephalic indicating a termite inspector central stenosis. The vena cava is unable to be visualiz ed. 2. Patient was given 1000 units of heparin IV. The thrombus was lysed with 10 mg of TPA. 3. Transluminal percutaneous angioplasty performed at the thrombus after thrombolysis procedure in g an 8 mm balloon angioplasty. This was followed by thrombectomy with Kayla catheter. Both of these procedures were repeated multiple times to ensure maceration of the thrombus. After repeated TPA and thrombectomy procedures, an angiogram showed significant improvement at the ou tflow; however, there is persistent thrombus remaining at this site. Findings were discussed with Dr. Vieyra. intermediate card tender problems include central occlusion of the brachio cephalic and persistent thrombus in the venous outflow that cannot be cleared with repeated thromboly sis, ASSISTANT NEWS DIRECTOR and thrombectomy. Surgical thrombectomy could be performed if this site is to be salvaged. PROCEDURE NOTE: Left upper extremity prepped and draped in a sterile manner. Ultrasound was used to assess the fistul a. The arterial anastomosis is patent. Initial venous outflow is patent. Thrombus is seen in the veno us outflow at the mid humerus region by ultrasound. The proximal fistula is punctured under local ane sthesia with micropuncture technique. A sheath is placed. Venogram was obtained. The clot was laced w ith TPA by injecting through a 5 Turkish catheter. TPA was then performed after the administration of heparin and thrombolysis. TPA was performed with an 8 mm balloon angiocatheter. TPA and thrombectomy were repeated multiple times in attempt to clear and macerate the thrombus. Final venogram revealed improvement in the outflow; however, there is persistent thrombus at this sit e just before the vein enters the stent in the mid to upper humerus. POS: LUISA
== END 2018-11-13 15:30 | disposition home or self-care (01) ==
LOC: SPEC 13:01
PROVIDERS: ATTEND Internal Medicine Nephrology
PROC: 057A3ZZ Dilation of Left Brachial Vein, Percutaneous Approach (ICD-10-PCS; principal; 2018-11-13)
DX: T82.868A Thrombosis due to vascular prosthetic devices, implants and grafts, initial encounter (principal); M32.9 Systemic lupus erythematosus, unspecified; I13.2 Hypertensive heart and chronic kidney disease with heart failure and with stage 5 chronic kidney disease, or end stage renal disease; N18.6 End stage renal disease; I50.9 Heart failure, unspecified; J45.909 Unspecified asthma, uncomplicated; I69.351 Hemiplegia and hemiparesis following cerebral infarction affecting right dominant side; Z88.8 Allergy status to other drugs, medicaments and biological substances; Z99.2 Dependence on renal dialysis
CPT/HCPCS: 36901; C1725; C1757; J2997

== ENCOUNTER 2018-11-15 22:04 | Inpatient (IN) | payer OTHER ==
[2018-11-15] MEDS ORDERED: hydrOXYzine 25 MG TAB ONE (22:37)
[2018-11-15 23:00] LABS: #Eosinphils 0.1 thou/uL (0.0-0.7); #Lymphocytes 1.3 thou/uL (1.20-3.40); #Monocytes 0.9 thou/uL (0.11-0.59); %Basophils 0.3 % (0.0-1.0); %Eosinophils 0.9 % (0.0-10.0); %Lymphocytes 11.1 % (21.0-51.0); %Monocytes 8.2 % (0.0-10.0); %Neutrophils 79.6 % (42.0-75.0); Mean Corpuscular HGB CONC 33.1 g/dL (32.0-36.0); Mean Corpuscular Hemoglobin 28.7 pg (27.0-31.0); Mean Corpuscular Volume 86.8 fL (78.0-98.0); Mean Platelet Volume 8.7 fL (7.4-10.4); Platelet Count 212 thou/uL (130-400); RBC Distribution Width 14.2 % (11.5-14.5); Red Blood Cell (RBC) Count 4.53 mill/uL (4.20-5.40); White Blood Cell (WBC) Count 11.3 thou/uL (4.8-10.8)
[2018-11-15] MEDS ORDERED: Ondansetron ODT 4 MG TAB ONE (23:08)
[2018-11-15 23:22] LABS: ALT (SGPT) Less than 7 U/L (8-55); AST (SGOT) 10 U/L (5-34); Albumin 3.7 g/dL (3.5-5.0); Alkaline Phosphatase 90 U/L (40-150); Anion Gap 25 mmol/L (10-20); BUN (Urea Nitrogen) 103 mg/dL (9.8-20.1); Bilirubin, Total 0.3 mg/dL (0.2-1.2); Calc. Creatinine Clearance 0 mL/min (70-130); Calcium 9.2 mg/dL (7.8-10.44); Carbon Dioxide 18 mmol/L (22-29); Chloride 97 mmol/L (98-107); Estimated GFR-MDRD 3; Globulin 3.4 g/dL (2.4-3.5); Glucose 96 mg/dL (70-105); Lipase 78 U/L (8-78); Potassium 5.8 mmol/L (3.5-5.1); Protein, Total 7.1 g/dL (6.0-8.3); Sodium 134 mmol/L (136-145)
[2018-11-15 23:23] LABS: BHCG - Serum Negative (NEGATIVE); Pregs Control Background? CLEAR/WHITE (CLR/WHITE); Pregs Control Bar Appear? YES (CONTROL BAR)
[2018-11-16] MEDS ORDERED: hydrOXYzine 25 MG TAB ONE (03:09)
[2018-11-16 04:54] VITALS: BMI 23.7
[2018-11-16] MEDS ORDERED: HYDROcodone/Acetaminophen 5/325 mg Tablet PO PRN ×3 (04:57→08:09)
[2018-11-16] MEDS ORDERED: Ondansetron ODT 4 MG TAB SL PRN (04:57)
[2018-11-16] MEDS ORDERED: Ondansetron PF 4 MG/2 ML Vial IVP PRN ×2 (04:57→08:09)
--- NOTE | 2018-11-16 07:16 | CT ---
PRELIMINARY REPORT/[facility]/EMERGENCY AFTER HOURS PROCEDURE: PROCEDURE INFORMATION: Exam: CT Abdomen and Pelvis Without Contrast Exam date and time: 11/16/2018 12:19 AM Clinical history: 53 years old, female; Prior surgery; Patient HX: Er 13. 53f C/O nausea and abdomina l pain worsening since last night w/2 episodes of vomiting today. Symptoms are localized, most severe in the epigastrium. Dialysis m/w/f. Surgical history of hernia repair, dialysis shunt, to the left upper extremity, also has shunt to rue, not in use, surgical history of section, append ectomy TECHNIQUE: Imaging protocol: Computed tomography of the abdomen and pelvis without contrast. COMPARISON: No relevant prior studies available. FINDINGS: Lungs: The visualized portions of the lung bases are normal. Liver: There are no focal liver lesions identified. There is nonspecific fatty stranding in the pelvi s. Gallbladder and bile ducts: There is stranding within the right upper quadrant surrounding a collapse d gallbladder. Pancreas: There is trace fullness of the pancreas with haziness possibly representing mild pancreatit is. Spleen: The spleen is normal. Adrenals: Normal. No mass. Kidneys and ureters: Normal. No hydronephrosis. Stomach and bowel: There is colonic wall thickening probably related to underdistention. Appendix: No evidence of appendicitis. Intraperitoneal space: Unremarkable. No free air. No significant fluid collection. Vasculature: The vasculature demonstrates diffuse mild atherosclerotic calcification. Lymph nodes: Unremarkable. No enlarged lymph nodes. Bladder: The bladder is decompressed but otherwise normal. Reproductive: The uterus is normal. Bones/joints: Unremarkable. No acute fracture. Soft tissues: Unremarkable. IMPRESSION: 1. There is trace fullness of the pancreas with haziness possibly representing mild pancreatitis. Correlation with lipase values is advised. 2. Pericholecystic fatty stranding also noted; correlate for acute cholecystitis. 3. Nonspecific study stranding in the pelvis. Thank you for allowing us to participate in the care of your patient. Dictated and Authenticated by: Jerzy Bowen MD 11/16/2018 12:40 AM Central Time ([place] & [place]) FINAL REPORT EMERGENCY AFTER HOURS CT ABDOMEN AND PELVIS: IMPRESSION: I agree with the preliminary report provided by [facility]. There is wall thickening and inflammatory stranding surrounding the gallbladder. There is peripancrea tic inflammatory stranding. There is mild free fluid within the lower abdomen and pelvis. There is so me excreted contrast within the left renal collecting system and bladder, likely from patient's prior fistulogram. High density within the gallbladder may reflect vicarious excretion versus gallbladder sludge. Right upper quadrant ultrasound may be helpful for improved characterization. POS: BH
[2018-11-16] MEDS ORDERED: Loratadine 10 MG TAB PO PRN (08:09)
[2018-11-16] MEDS ORDERED: Ondansetron ODT 4 MG TAB PO PRN (08:09)
[2018-11-16] MEDS ORDERED: hydrALAZINE 20 MG/ML VIAL SLOW IVP PRN (08:09)
[2018-11-16] MEDS ORDERED: Acetaminophen 325 MG TAB PO PRN (08:09)
--- NOTE | 2018-11-16 08:31 | HP ---
PRIMARY CARE PHYSICIAN: Yisel Mcgill MD RENTAL SALES AGENT: Alexis Gavin MD CHIEF COMPLAINT: Stomach pain and no appetite. HISTORY OF PRESENT ILLNESS: Ms. Bearden is a pleasant 53-year-old female, who has a history of end-stage renal disease and hypertension as well as lupus, who recently had a procedure to declot her shunt. She says that she bit off a burger yesterday and it began to make her nauseated and she says that she threw the burger away and then started having pain in the mid part of her abdomen. She rated it about 7/10. There is no radiation and she cannot really characterize it other than it was just hurting. She says that the pain lasted several hours until she came to the hospital. She said they gave her some stomach pills, which made it better. She denies having any fevers or chills. When asked if she has had any pain with eating, she says that she "has not been eating and has had poor appetite" and otherwise, she is a bit of a poor historian. She does admit to having noticed some blood in her urine off and on and she says that it was painful when she urinated and also itching. Otherwise, she just says her mouth is dry and she really wants to try to drink something, but does continue to have some nausea. REVIEW OF SYSTEMS: CONSTITUTIONAL: There has been no fevers or chills. No night sweats. No weight loss. HEENT: No headaches. No dizziness. No visual changes. No sore throat or rhinorrhea. NECK: No neck pain. No adenopathy. PULMONARY: No hemoptysis. No cough. No wheezing. CARDIOVASCULAR: No chest pain. No shortness of breath. No PND. No orthopnea. GASTROINTESTINAL: As the history of present illness. MUSCULOSKELETAL: No muscle pains, weakness, or joint pains. NEUROLOGIC: No focal weakness or numbness. No seizures. PSYCHIATRIC: No symptoms of anxiety or depression. SKIN AND INTEGUMENT: No skin changes that she has noted new. She does have a diffuse macular rash. PAST MEDICAL HISTORY: Significant for systemic lupus; hypertension; asthma; end-stage renal disease, on hemodialysis; and previous CVA with right lower extremity weakness. PAST SURGICAL HISTORY: She has had a hernia repair, dialysis shunt in both her left and right upper extremities, the right is nonfunctioning. She has had an appendectomy, , and umbilical hernia repair. SOCIAL HISTORY: She is a nonsmoker and nondrinker. She is single. She has 3 children. ALLERGIES: TO HUANG INHIBITORS AND CLONIDINE, WHICH CAUSE ITCHING WELL NITROGLYCERIN. MEDICATIONS: Her medications are taken from her records and includes; 1. Amlodipine 5 mg daily. 2. Prednisone 5 mg daily. 3. Hydroxyzine 25 mg as needed. 4. [place] 10/325 q.6 as needed. 5. Lasix 20 mg twice daily. 6. Albuterol inhaler p.r.n. FAMILY HISTORY: Negative for any heritable diseases. PHYSICAL EXAMINATION: GENERAL: She is alert and oriented. She appears to be in no acute distress. However, she is chronically ill in appearance. She is well developed and well nourished. VITAL SIGNS: Blood pressure was 127/77, heart rate 77, respiratory rate of 18, and temperature is 97.6. HEENT: Pupils are equal, round, and reactive. Extraocular muscles are intact. Her sclerae are anicteric. Throat; she has poor dentition. Dry mucous membranes. There is no adenopathy. She did have some increase in jugular venous distention. LUNGS: She did have some mild expiratory rhonchi, but there is no wheezing. No rales. CARDIOVASCULAR: She has a normal S1 and S2. There is no S3 or S4. She did have a grade 2/6 systolic murmur at the base. ABDOMEN: Soft, mildly distended, tympanic to percussion. She has some diffuse tenderness, but it appears to be localized more to the mid to right upper quadrant. There is no rebound. She did have some voluntary guarding. Bowel sounds are diminished. EXTREMITIES: She has some mild nonpitting edema. No calf tenderness. No joint effusions. NEUROLOGIC: Her exam is grossly nonfocal. SKIN AND INTEGUMENT: She does have some hyperpigmented rash over most of her face and areas where the skin looks a bit sicker and possibly scar also on her upper extremities as well and chest. LABORATORY RESULTS: Sodium 134, potassium 5.3, chloride is 97, CO2 is 18, BUN of 103, and creatinine of 13.9. White blood cell count 11.3, hemoglobin 13, hematocrit is 39.4, and platelet count is 212. She had a CT scan of the abdomen, which is significant for a trace fullness of the pancreas and some haziness as well as some pericholecystic fatty stranding noticed in a contracted gallbladder. The patient also had an EKG and it was sinus rhythm, the rate of 70 with evidence of right ventricular hypertrophy, some nonspecific ST wave changes, this is by my reading. ASSESSMENT AND PLAN: 1. This is a pleasant 53-year-old female, who presents with abdominal pain as well as nausea and CT evidence suspicious of possible pericholecystic stranding and she also has evidence of right upper quadrant tenderness on exam. This is suspicious for possible gallbladder disease. However, it is not completely elucidated at this time as she does not have elevation in her liver function tests. For this reason, I believe we need more evidence to point it towards the gallbladder and for this reason, we will go ahead and order a HIDA scan. She will be placed in observation, and we will place her on clear liquid diet and judicious IV fluids. 2. End-stage renal disease, on hemodialysis. We will consult her book trimmer for maintenance hemodialysis. 3. Asthma. We will place her on p.r.n. nebs. 4. Systemic lupus. We will continue prednisone on her home dose and also check complement factors as well as BABITA to see if the abdominal pain could be related to a lupus scleritis type syndrome. She will also be placed on DVT and GI prophylaxis. Job ID: [id number]
[2018-11-16 08:55] LABS: HBSAg Index 0.17 S/CO (0-0.99); Hep B Surf Ag Non-Reactive S/CO (NonReactive)
[2018-11-16] MEDS ORDERED: Enoxaparin Sodium 40 MG/0.4 ML SYRINGE SC SCH (09:00)
[2018-11-16] MEDS ORDERED: predniSONE 5 MG TAB PO SCH (09:00)
[2018-11-16] MEDS: Sodium Chloride 0.9% 1,000 ML IV SCH (10:50)
[2018-11-16] MEDS: Heparin 5,000 UNITS/ML VIAL SC SCH ×2 (10:50→20:41)
[2018-11-16] MEDS: Famotidine 20 MG TAB PO SCH (10:51)
[2018-11-16] MEDS: Amlodipine 5 MG TAB PO SCH (10:51)
[2018-11-16] MEDS: hydrOXYzine 25 MG TAB PO PRN ×2 (13:42→22:41)
--- NOTE | 2018-11-16 15:36 | CON ---
DATE OF CONSULTATION: REASON FOR CONSULTATION: Hyperkalemia and for maintenance dialysis. HISTORY OF PRESENT ILLNESS: This is a 53-year-old female, who missed dialysis, presented to the hospital early this morning, complaining of stomach pain and no appetite. The patient denies any headache, numbness, tingling, or weakness. Denies any nausea, vomiting, or chest pain. PAST MEDICAL HISTORY: Significant for lupus, asthma, end-stage renal disease, history of CVA, right lower extremity weakness, history of AV fistula, tunneled dialysis catheter, . SOCIAL HISTORY: No alcohol or drug use. FAMILY HISTORY: Negative for ESRD. ALLERGIES: REVIEWED. HOME MEDICATIONS: List reviewed. REVIEW OF SYSTEMS: Fifteen-point review of system was performed and negative except for positives noted above. GENERAL: HEAD: NECK: No swelling or lumps. NOSE: No epistaxis or discharge. EYES: No diplopia or pain. RESPIRATORY: CARDIOVASCULAR: GASTROINTESTINAL: /SCHOOL COMMISSIONER: MUSCULOSKELETAL: No joint pain. NEUROPSYCHIATRIC SYSTEMS: No suicidal ideation. No ideation. SKIN: Denies any rash or ulcer. CONSTITUTIONAL: No fever or chills. PHYSICAL EXAMINATION: CONSTITUTIONAL: On examination, the patient is awake alert. VITAL SIGNS: Afebrile, pulse 75, breathing 16, and blood pressure 120/77. GENERAL APPEARANCE AND MENTAL STATUS: Fair. HEAD/NECK: Normocephalic. Atraumatic. EYES: EOMI. No deformity. EARS: Clear. No ulcers. NOSE: Intact. No lesions. MOUTH: Clear. No discharge. THROAT: Clear. No exudate. LUNGS: Clear. No crackles. CARDIAC: S1, S2. No rub. ABDOMEN: Benign. Bowel sounds positive. GENITALIA/RECTUM: Devries absent. BACK/EXTREMITIES: Edema 0+. NEUROLOGICAL: Alert and motor intact. SKIN: LYMPHATICS: LABORATORY DATA: Reviewed. ASSESSMENT AND PLAN: 1. Stage 6, chronic kidney disease. Plan dialysis. 2. Hyperkalemia. Plan dialysis. 3. Anemia, stable. 4. Uremia. Plan dialysis. 5. Noncompliance is a major issue. Job ID: [id number]
[2018-11-17] MEDS: Sodium Chloride 0.9% 1,000 ML IV SCH
[2018-11-17] MEDS: diphenhydrAMINE 25 MG CAP PO PRN ×2 (05:12→05:15)
[2018-11-17 06:27] LABS: #Eosinphils 0.2 thou/uL (0.0-0.7); #Lymphocytes 0.9 thou/uL (1.20-3.40); #Monocytes 0.6 thou/uL (0.11-0.59); #Neutrophils 3.8 thou/uL (1.40-6.50); %Basophils 0.7 % (0.0-1.0); %Eosinophils 2.8 % (0.0-10.0); %Lymphocytes 16.8 % (21.0-51.0); %Monocytes 11.2 % (0.0-10.0); %Neutrophils 68.5 % (42.0-75.0); Hemoglobin 12.2 g/dL (12.0-16.0); Mean Corpuscular HGB CONC 32.6 g/dL (32.0-36.0); Mean Corpuscular Hemoglobin 29.3 pg (27.0-31.0); Mean Corpuscular Volume 89.8 fL (78.0-98.0); Mean Platelet Volume 8.6 fL (7.4-10.4); Platelet Count 209 thou/uL (130-400); RBC Distribution Width 14.6 % (11.5-14.5); Red Blood Cell (RBC) Count 4.17 mill/uL (4.20-5.40); White Blood Cell (WBC) Count 5.5 thou/uL (4.8-10.8)
[2018-11-17 06:38] LABS: Anion Gap 20 mmol/L (10-20); BUN (Urea Nitrogen) 46 mg/dL (9.8-20.1); Calc. Creatinine Clearance 7 mL/min (70-130); Calcium 8.5 mg/dL (7.8-10.44); Carbon Dioxide 19 mmol/L (22-29); Chloride 100 mmol/L (98-107); Estimated GFR-MDRD 6; Glucose 77 mg/dL (70-105); Potassium 4.5 mmol/L (3.5-5.1); Sodium 134 mmol/L (136-145)
[2018-11-17 07:30] VITALS: BP 119/83; TEMP 98.4
[2018-11-17] MEDS ORDERED: predniSONE 5 MG TAB PO SCH (08:00)
[2018-11-17] MEDS: Amlodipine 5 MG TAB PO SCH (08:54)
[2018-11-17] MEDS: Famotidine 20 MG TAB PO SCH (08:54)
[2018-11-17] MEDS: Heparin 5,000 UNITS/ML VIAL SC SCH (08:55)
--- NOTE | 2018-11-17 12:43 | NM ---
EXAM: Nuclear medicine hepatobiliary scan HISTORY: Right upper quadrant abdominal pain TECHNIQUE: A nuclear medicine hepatobiliary scan was performed after administration of 5.0 mCi of salome hnetium 99m mebrofenin. COMPARISON: None FINDINGS: Prompt uptake of the radiopharmaceutical by the liver is seen. No photopenic liver defects are seen. Biliary activity is seen within 10 minutes. Gallbladder activity is seen within 12 minutes. Bowel activity is seen within 60 minutes. A gallbladder ejection fraction was not performed as the patient refused this portion of the procedur e. IMPRESSION: No evidence of acute cholecystitis
--- NOTE | 2018-11-17 15:56 | PRG ---
DATE OF SERVICE: 11/17/2018 SUBJECTIVE: This is a 53-year-old female being seen for end-stage renal disease. The patient denied nausea, vomiting, or chest pain. OBJECTIVE: GENERAL: The patient is awake and alert. VITAL SIGNS: Pulse 86, breathing 16, blood pressure 125/80. GENERAL APPEARANCE AND MENTAL STATUS: Fair. HEAD/NECK: Normocephalic. Atraumatic. EYES: EOMI. No deformity. EARS: Clear. No ulcers. NOSE: Intact. No lesions. MOUTH: Clear. No discharge. THROAT: Clear. No exudate. LUNGS: Clear. No crackles. CARDIAC: S1, S2. No rub. ABDOMEN: Benign. Bowel sounds positive. GENITALIA/RECTUM: Devries absent. BACK/EXTREMITIES: Edema 0+. NEUROLOGICAL: Alert and motor intact. SKIN: LYMPHATICS: LABORATORY DATA: Reviewed. ASSESSMENT AND PLAN: 1. Stage 6 chronic kidney disease, continue hemodialysis. 2. Hypertension, stable. 3. Anemia, stable. Medication based on GFR appropriate. Job ID: [id number]
--- NOTE | 2018-11-17 16:02 | PDOC.HOSPP ---
- Subjective Encounter Date: 11/17/18 Encounter Time: 16:00 Subjective: Ms. Bearden was seen today in follow-up of Abdominal pain and nausea. She is doing much better. She tells me she was having difficulty getting dialysis completed. - Objective Vital Signs & Weight: Vital Signs (12 hours) Temp Pulse Resp BP Pulse Ox 11/17/18 07:27 98.4 F 86 18 119/83 90 L 11/17/18 04:05 98.1 F 83 16 125/88 90 L Weight Weight 138 lb 6.4 oz Result Diagrams: 11/17/18 06:06 11/17/18 06:06 Hospitalist ROS - Medication Medications: Active Medications Generic Name Dose Route Start Last Admin Trade Name Freq PRN Reason Stop Dose Admin Amlodipine Besylate 5 mg 11/16/18 09:00 11/17/18 08:54 Norvasc PO Not Given DAILY INGRID Diphenhydramine HCl 25 mg 11/17/18 01:10 11/17/18 05:15 Benadryl PO 25 mg Q6H PRN Administration Itching Famotidine 20 mg 11/16/18 09:00 11/17/18 08:54 Pepcid PO Not Given DAILY [facility] Heparin Sodium (Porcine) 5,000 units 11/16/18 09:00 11/17/18 08:55 Heparin SC Not Given BID INGRID Hydroxyzine HCl 25 mg 11/16/18 06:03 11/16/18 22:41 Atarax PO 25 mg BID PRN Administration Itching Sodium Chloride 1,000 mls @ 60 mls/hr 11/16/18 08:15 11/17/18 00:00 Normal Saline 0.9% IV Not Given .[id number] INGRID Prednisone 5 mg 11/17/18 08:00 11/17/18 08:54 Prednisone PO Not Given QAM-WM INGRID - Exam Eye: PERRL, anicteric sclera Heart: RRR, no murmur, no gallops, no rubs, normal peripheral pulses Respiratory: CTAB, no wheezes, no rales, no ronchi, normal chest expansion Gastrointestinal: soft, non-tender, non-distended, normal bowel sounds, no palpable masses, no hepatomegaly, no splenomegaly Extremities: no cyanosis, no clubbing, no edema Hosp A/P (1) Uremia Code(s): N19 - UNSPECIFIED KIDNEY FAILURE Status: Acute (2) Abdominal pain Code(s): R10.9 - UNSPECIFIED ABDOMINAL PAIN Status: Acute Qualifiers: (3) ESRD (end stage renal disease) on dialysis Code(s): N18.6 - END STAGE RENAL DISEASE; Z99.2 - DEPENDENCE ON RENAL DIALYSIS Status: Chronic (4) Hypertension Code(s): I10 - ESSENTIAL (PRIMARY) HYPERTENSION Status: Chronic Qualifiers: (5) Systemic lupus erythematosus Code(s): M32.9 - SYSTEMIC LUPUS ERYTHEMATOSUS, UNSPECIFIED Status: Chronic - Plan * Abdominal pain and nausea- likely due to Uremia from missed dialysis * She is better after dialysis * HIDA scan was negative * Stable for discharge home.
--- NOTE | 2018-11-18 00:42 | DIS ---
DATE OF ADMISSION: 11/16/2018 DATE OF DISCHARGE: 11/17/2018 PRIMARY CARE PHYSICIAN: Yisel Mcgill MD DISCHARGE DISPOSITION: Home. DISCHARGE DIAGNOSES: 1. Abdominal pain and nausea, likely secondary to uremia. 2. End-stage renal disease, on hemodialysis. 3. Systemic lupus. 4. Hypertension. 5. History of schizophrenia. 6. History of previous cerebrovascular accident with right-sided weakness. DISCHARGE MEDICATIONS: Include: 1. Norvasc 5 mg daily. 2. Prednisone 5 mg daily. 3. Hydroxyzine 25 mg daily. 4. Snow 10/325 q.6 as needed. 5. Furosemide 20 mg twice daily. 6. ProAir two puffs q.4 hours as needed. PROCEDURES DONE DURING THIS ADMISSION: The patient had a CT scan of the abdomen and pelvis, showing some fullness of the pancreas with some haziness, possibly representing mild pancreatitis. There is some pericholecystic fatty stranding and some other nonspecific findings. The patient had a hepatobiliary scan, which was negative for cholecystitis. CODE STATUS: Full code. ALLERGIES: HUANG INHIBITORS, CLONIDINE, AND NITROGLYCERIN. HOSPITAL COURSE: Ms. Bearden is a very pleasant 53-year-old female, who presented to the emergency room with complaints of abdominal pain and nausea. CT scan findings were suspicious for possible cholecystitis. For this reason, a HIDA scan was ordered. However, by the time the patient had a HIDA scan, her symptoms are actually resolving. HIDA scan was negative. On review of the notes from Dr. Gonzalez, it was expressed that the patient has difficulty with compliance with dialysis. He felt that she had significant uremia. After dialysis, her symptoms improved and I suspect the abdominal pain and nausea was due to uremia. At the time of discharge, she was asking to leave. She had regained her appetite and she did admit that she has been having difficulty with obtaining her dialysis. She attributes it to difficulty with accessing her AV fistula. They were able to access her fistula during this hospital stay and apparently it is functioning better and she is being discharged home. Job ID: [id number]
--- NOTE | 2018-11-19 09:12 | PQF ---
[employer] Crystal Reports Vikramform JERSON Hyatt PATRICIA DOMINIQUE MD [id number] [facility] [id number] CLINICAL DOCUMENTATION CLARIFICATION FORM: POST DISCHARGE Addendum to original discharge summary date: ____ Late entry note date: __ DATE: 11/19/2018 ATTN: PATRICIA DOMINIQUE MD Please exercise your independent, professional judgment in responding to the clarification form. Clinical indicators are provided on the bottom of this form for your review Please check appropriate box(s): [ ] Pancreatitis [ ] Acute [ ] Chronic [ ] Recurrent [ ] With Sepsis Cause: [ ] Gallstones [ ] Alcohol induced [ ] Idiopathic [ ] Cystic [ ] Infectious [ ] Interstitial [X ] Other diagnosis __Non-specific elevation of lipase- not high enough for pancreatitis [ ] Unable to determine In addition, please specify: Present on Admission (POA): [ X ] Yes [ ] No [ ] Unable to determine For continuity of documentation, please document condition throughout progress notes and discharge summary. Thank You. CLINICAL INDICATORS - SIGNS / SYMPTOMS / LABS - Mild pancreatitis-DS, 11/17, PATRICIA DOMINIQUE MD - some fullness of the pancreas with some haziness-DS, 11/17, PATRICIA DOMINIQUE MD - Negative for Cholecystitis-DS, 11/17, PATRICIA DOMINIQUE MD - Lipase: 78-Laboratory, 11/15, RISK FACTORS - ESRD, on hemodialysis-DS, 11/17, PATRICIA DOMINIQUE MD - pt denies alcohol abuse- ED record, Derrick Covarrubias MD TREATMENT: - HIDA scan-DS, 11/17, PATRICIA DOMINIQUE MD - Sodium chloride.IV-APR, 11/16 MTDD
== END 2018-11-17 17:30 | disposition home or self-care (01) | DRG 640 ==
LOC: ERS 22:04 → OBSVTOIN 11-16 04:50 → T4-B 11-16 04:50
PROVIDERS: ADMIT Hospitalist; ATTEND Hospitalist
PROC: 5A1D70Z Performance of Urinary Filtration, Intermittent, Less than 6 Hours Per Day (ICD-10-PCS; principal; 2018-11-16)
DX: E87.5 Hyperkalemia (principal); N18.6 End stage renal disease; I13.0 Hypertensive heart and chronic kidney disease with heart failure and stage 1 through stage 4 chronic kidney disease, or unspecified chronic kidney disease; E87.70 Fluid overload, unspecified; M32.9 Systemic lupus erythematosus, unspecified; J45.909 Unspecified asthma, uncomplicated; F20.9 Schizophrenia, unspecified; I50.9 Heart failure, unspecified; Z88.8 Allergy status to other drugs, medicaments and biological substances; Z90.49 Acquired absence of other specified parts of digestive tract; Z87.891 Personal history of nicotine dependence; Z91.15 Patient's noncompliance with renal dialysis; I69.341 Monoplegia of lower limb following cerebral infarction affecting right dominant side
CPT/HCPCS: 36415; 74176; 78227; 80048; 80053; 83690; 84703; 85025; 87340; 90935; 93005; A9537; G0257; J1644; J7512; Q0162; Q0163

== ENCOUNTER 2018-11-19 17:35 | Inpatient (IN) | payer OTHER ==
[~2018-11-19 17:35] MED LIST changes: -FLU VACC QS2017-18 36 mo. & older 0.5 ML SYRINGE IM ONE; +Heparin 1,000 UNITS/ML VIAL ONE; -Iopamidol 300 61% 100 ML VIAL FS ONE
[2018-11-19] MEDS ORDERED: Ondansetron PF 4 MG/2 ML Vial ONE (17:40)
[2018-11-19 18:01] LABS: #Eosinphils 0.1 thou/uL (0.0-0.7); #Lymphocytes 0.7 thou/uL (1.20-3.40); #Monocytes 0.5 thou/uL (0.11-0.59); #Neutrophils 3.9 thou/uL (1.40-6.50); %Basophils 0.4 % (0.0-1.0); %Eosinophils 1.4 % (0.0-10.0); %Lymphocytes 13.6 % (21.0-51.0); %Monocytes 8.9 % (0.0-10.0); %Neutrophils 75.6 % (42.0-75.0); Hemoglobin 12.4 g/dL (12.0-16.0); Mean Corpuscular HGB CONC 32.3 g/dL (32.0-36.0); Mean Corpuscular Hemoglobin 28.5 pg (27.0-31.0); Mean Corpuscular Volume 88.3 fL (78.0-98.0); Mean Platelet Volume 8.2 fL (7.4-10.4); Platelet Count 209 thou/uL (130-400); RBC Distribution Width 14.2 % (11.5-14.5); Red Blood Cell (RBC) Count 4.34 mill/uL (4.20-5.40); White Blood Cell (WBC) Count 5.2 thou/uL (4.8-10.8)
[2018-11-19 18:22] LABS: ALT (SGPT) Less than 7 U/L (8-55); AST (SGOT) 11 U/L (5-34); Albumin 3.2 g/dL (3.5-5.0); Alkaline Phosphatase 97 U/L (40-110); Anion Gap 18 mmol/L (10-20); BUN (Urea Nitrogen) 27 mg/dL (9.8-20.1); Bilirubin, Total 0.4 mg/dL (0.2-1.2); CK (CPK) 67 U/L (29-168); Calc. Creatinine Clearance 0 mL/min (70-130); Calcium 7.5 mg/dL (7.8-10.44); Carbon Dioxide 22 mmol/L (22-29); Chloride 100 mmol/L (98-107); Estimated GFR-MDRD 7; Globulin 2.8 g/dL (2.4-3.5); Glucose 98 mg/dL (70-105); Lipase 73 U/L (8-78); Sodium 136 mmol/L (136-145)
--- NOTE | 2018-11-19 18:23 | CT ---
Exam: Abdomen CT without contrast Pelvic CT without contrast HISTORY: Right upper quadrant rigidity, pain and tenderness COMPARISON: 11/16/2018, 02/11/2018 FINDINGS: Abdomen CT: Lung bases:3.6 mm right pleural-based solid nodule Heart size: Upper normal heart size. No significant pericardial fluid Aorta: Stable mild prominence of the suprarenal abdominal aorta, measuring 2.4 x 2.3 cm. Solid organs: Limited evaluation due to lack of IV contrast. Grossly no solid organ evaluation Lymph nodes: No gastrohepatic, retrocrural or periportal lymphadenopathy Gallbladder: Persistent inflammatory change in the gallbladder fossa. Mesentery: No mass, lymphadenopathy or free air. There is fluid in Morison's pouch, gallbladder fossa and anterior to the right renal space. Fluid tracks along the right and to lesser extent left paracolic gutters. Kidneys: Bilaterally, no hydronephrosis, nephrolithiasis or perinephric fat stranding. Bilateral uret ers have a normal caliber. No hydroureter, periureteral fat stranding or ureterolithiasis. Alimentary canal: Limited evaluation due to technique. No evidence of small bowel obstruction. Ileoce nicholas junction is unremarkable. Appendix is not appreciated. No inflammation at the cecal apex. Scattered fecal material in a nondistended, nondilated colon. CT PELVIS: No mass, adenopathy, free air or free fluid. Uterus and adnexal structures are grossly unremarkable. Urinary bladder: Unremarkable. Osseous structures: No lytic or blastic lesions IMPRESSION: 1. Redemonstration of inflammatory changes in the gallbladder fossa. Despite a negative HIDA scan, co nsider general surgical consultation for possible cholecystectomy.
[2018-11-19 18:44] LABS: CKMB 1.4 ng/mL (0-6.6)
[2018-11-19] MEDS ORDERED: Morphine 4 MG/ML VIAL ONE (19:39)
[2018-11-19] MEDS ORDERED: Fentanyl 100 MCG/2 ML VIAL ONE ×2 (19:47→23:34)
--- NOTE | 2018-11-19 19:49 | RAD ---
Exam: Chest one view HISTORY:Pain Comparison: 11/06/2018 FINDINGS: Cardiac silhouette:Cardiomegaly Aorta: Unremarkable Pulmonary vessels: Normal Costophrenic angles: Clear LUNGS: No masses or consolidation. Pneumothorax: None Osseous abnormalities: None IMPRESSION: 1. Cardiomegaly. 2. No evidence of congestive heart failure.
[2018-11-19] MEDS ORDERED: Piperacillin/Tazobactam 4.5 GM VIAL ONE (22:08)
[2018-11-19] MEDS ORDERED: Acetaminophen 325 MG TAB PO PRN (22:32)
[2018-11-19] MEDS ORDERED: Acetaminophen 650 MG Suppository PR PRN (22:32)
[2018-11-19] MEDS ORDERED: HYDROcodone/Acetaminophen 5/325 mg Tablet PO PRN (22:32)
[2018-11-19] MEDS ORDERED: Calcium Carbonate 500 MG ChewTAB PO PRN (22:32)
[2018-11-19] MEDS ORDERED: Promethazine 25 MG TAB PO PRN (22:35)
[2018-11-19] MEDS ORDERED: Sodium Chloride 0.9% (PF) 10 ML VIAL FS PRN (22:45)
[2018-11-19] MEDS ORDERED: Pantoprazole 40 MG VIAL IVP SCH (22:45)
--- NOTE | 2018-11-19 22:59 | HP ---
PRIMARY CARE: Dr. Mcgill. PRIMARY FINANCIAL PLANNER: Dr. Vieyra. CHIEF CONCERN: Nausea and vomiting with abdominal discomfort. HISTORY OF PRESENT ILLNESS: The patient is a 53-year-old female with end-stage renal disease, on hemodialysis with recent hospitalization for nausea, vomiting with abdominal discomfort, presented to the emergency room with above complaints. Please refer to the discharge summary from November 17, 2018 for details on recent hospitalization. Post discharge, the patient continued to have significant nausea with abdominal discomfort. She had 1 episode of vomiting. She has lost her appetite due to persistent nausea. The abdominal pain is generalized. At this time, the pain has improved after 50 mcg of fentanyl in the emergency room. She denies any fever or chills. She had a normal bowel movement yesterday. The vomitus contained food which she had eaten. No hematemesis, melena, or hematochezia reported. In the emergency room, her vital signs showed temperature 99.3, respirations of 28, pulse of 71 with a blood pressure of 87/70 with O2 saturation of 96% on room air. She received fentanyl 50 mcg and 4 mg of Zofran in the emergency room. The patient also complains of generalized weakness along with lightheadedness, especially on standing. PAST MEDICAL HISTORY: 1. End-stage renal disease, on hemodialysis. 2. Systemic lupus erythematosus, on chronic steroids. 3. Mild intermittent asthma. 4. History of CVA. 5. Dyslipidemia. 6. Chronic pain syndrome. 7. Anemia secondary to renal insufficiency. PAST SURGICAL HISTORY: 1. Dialysis access. 2. . 3. Appendectomy. ALLERGIES: THE PATIENT IS ALLERGIC TO CLONIDINE AND HUANG INHIBITOR. CURRENT HOME MEDICATIONS: The patient is unable to recall any of her home medications. She states that her medications are same as last admission. SOCIAL HISTORY: The patient currently lives at home with her family. No current use of tobacco, alcohol, or drug use. 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 FAMILY HISTORY: Negative for premature coronary artery disease. REVIEW OF SYSTEMS: All other review of systems are reviewed and were found negative. PHYSICAL EXAMINATION: VITAL SIGNS: Temperature 99.3, respirations of 18, pulse rate of 67. Last blood pressure in systolic 90s. Her blood pressure earlier was 78/57. O2 saturation 96% on room air. GENERAL: A 53-year-old female in mild distress due to abdominal discomfort. After fentanyl, her abdominal discomfort has significantly improved. HEENT: Head, atraumatic and normocephalic. Sclerae are anicteric. Dry mucous membranes. No oral lesion. NECK: Supple. No JVD appreciated. No carotid bruit. LUNGS: Essentially clear to auscultation bilaterally. No accessory muscle use. No rhonchi or rales. HEART: S1, S2 present. Regular rate and rhythm. No rubs or gallops. ABDOMEN: Soft. There is mild generalized tenderness mainly in the right upper quadrant. No rebound or guarding. Bowel sounds are present. EXTREMITIES: 1+ edema in bilateral lower extremities. SKIN: Warm and dry. LYMPH NODES: No palpable lymph nodes in the neck. PERIPHERAL VASCULAR: Radial pulses are palpable bilaterally. MUSCULOSKELETAL: No joint swelling or tenderness. LABORATORY FINDINGS: CBC showed WBC 5.2, hemoglobin 12.4, hematocrit 38.4, platelet count of 209. Chemistry showed sodium 136, potassium 4, chloride 100, bicarb 22 , BUN 27, creatinine 7.7. Lipase was 73. LFTs, essentially in normal range. BNP was chronically in 2600 range. Troponin was 0.030. Lactic acid was 3.6. Chest x-ray by my review showed cardiomegaly without any evidence for congestive heart failure. CT scan of the abdomen and pelvis without contrast showed redemonstration of the inflammatory changes in the gallbladder fossa. HIDA scan from last week was negative for acute cholecystitis. EKG by my review showed sinus rhythm with incomplete right bundle-branch block with QT interval of 541 milliseconds. IMPRESSION: 1. Persistent nausea, vomiting with abdominal discomfort with recent hospitalization. 2. Dehydration with lactic acidosis. 3. Hypotension of unclear etiology. Possibilities include dehydration from nausea versus sepsis. 4. Systemic lupus erythematosus, on chronic steroids. 5. History of hypertension. 6. Schizophrenia. 7. History of cerebrovascular accident. 8. Mild intermittent asthma. 9. Chronic pain syndrome. 10. Troponin elevation secondary to end-stage renal disease. The troponin has been elevated in the past as well on several locations. PLAN: The patient will be monitored in CCU for close monitoring. General Surgery will be consulted. We will empirically cover with antibiotics. We will get serial troponin. Repeat lactic acid after 4 hours. Recheck labs in a.m. Hold antihypertensives. We will check cortisol level. We will consider stress dose steroids if needed. Consult Nephrology for dialysis management. The patient was advised to clarify with her PCP regarding antiplatelet agent due to history of CVA in the past. We will avoid Zofran due to prolonged QT. Nebulizer treatment as needed. Pressors will be started after central line Job ID: [id number] MTDD
[2018-11-19] MEDS ORDERED: SYSTANE 3.5 GM TUBE EA EYE PRN (23:00)
[2018-11-19] MEDS ORDERED: Norepinephrine 8 MG/0.9% NS 250 ML IVPB PRN (23:00)
[2018-11-19] MEDS ORDERED: Acetaminophen 325 MG/10.15 ML UDCUP PO PRN (23:00)
[2018-11-19] MEDS ORDERED: Fentanyl 100 MCG/2 ML VIAL SLOW IVP PRN (23:02)
--- NOTE | 2018-11-19 23:16 | ULT ---
EXAM: US Gallbladder RUQ CLINICAL HISTORY: Nausea. Vomiting. Right upper quadrant pain.. COMPARISON: 01/13/2018 FINDINGS: Pancreas: The head of the pancreas has a normal echotexture. The remainder the pancreas is obscured by bowel gas Liver:Normal echotexture. No hepatic masses or intrahepatic biliary dilatation. Right hepatic lobe me asures 19.6 cm Portal vein: Patent with appropriate directional flow Gallbladder: Gallbladder wall is thickened. Gallbladder wall diameter 0.6 cm. There is a small amount of pericholecystic fluid. No sonographic evidence of cholelithiasis. Reis's sign:Positive Bile ducts: Common bile duct diameter is 0.5 cm Right kidney: Renal cortical thinning.. Right kidney measures 9.2 x 3.4 x 3.7 cm in length. No hydron ephrosis IMPRESSION: 1. Sonographic evidence of acalculous cholecystitis. Confirmation with HIDA scan including gallbladde r ejection fraction is recommended. Previous HIDA scan did not assess for gallbladder ejection fraction. 2. No evidence of right-sided hydronephrosis. Transcribed Date/Time: 11/19/2018 11:21 PM
[2018-11-20] MEDS ORDERED: Sodium Chloride 0.9% 500 ML IV SCH (00:45)
[2018-11-20] MEDS: Dextrose 5 % And 0.9 % NaCl 1,000 ML IV SCH ×2 (01:40→18:44)
[2018-11-20 02:04] LABS: PTT 41.5 SEC (22.9-36.1); Prothrombin Time 22.7 SEC (12.0-14.7)
[2018-11-20 02:15] LABS: Lactic Acid 2.6 mmol/L (0.5-2.2)
[2018-11-20] MEDS ORDERED: hydrOXYzine 25 MG TAB PO PRN (02:20)
[2018-11-20] MEDS ORDERED: hydrOXYzine 10 MG TAB PO PRN (02:20)
[2018-11-20] MEDS ORDERED: PROVENTIL INHALER 6.7 G (200 INHALATIONS) INH PRN (02:20)
[2018-11-20 02:21] LABS: #Lymphocytes 0.6 thou/uL (1.20-3.40); #Monocytes 0.2 thou/uL (0.11-0.59); #Neutrophils 2.9 thou/uL (1.40-6.50); %Lymphocytes 15.7 % (21.0-51.0); %Monocytes 4.2 % (0.0-10.0); %Neutrophils 79.2 % (42.0-75.0); Crenated RBC MODERATE= 6-15 cells (100X) (None Seen); Hemoglobin 9.3 g/dL (12.0-16.0); MDiff Complete? YES; Mean Corpuscular Hemoglobin 29.2 pg (27.0-31.0); Mean Corpuscular Volume 91.2 fL (78.0-98.0); Mean Platelet Volume 8.2 fL (7.4-10.4); Platelet Count 159 thou/uL (130-400); RBC Distribution Width 14.1 % (11.5-14.5); Red Blood Cell (RBC) Count 3.18 mill/uL (4.20-5.40); White Blood Cell (WBC) Count 3.7 thou/uL (4.8-10.8)
[2018-11-20 02:29] LABS: ALT (SGPT) Less than 7 U/L (8-55); AST (SGOT) 13 U/L (5-34); Albumin 1.7 g/dL (3.5-5.0); Alkaline Phosphatase 57 U/L (40-110); Anion Gap 11 mmol/L (10-20); BUN (Urea Nitrogen) 17 mg/dL (9.8-20.1); Bilirubin, Total 0.4 mg/dL (0.2-1.2); Calc. Creatinine Clearance 15 mL/min (70-130); Carbon Dioxide 15 mmol/L (22-29); Chloride 120 mmol/L (98-107); Estimated GFR-MDRD 14; Globulin 1.6 g/dL (2.4-3.5); Glucose 95 mg/dL (70-105); Lipase 23 U/L (8-78); Potassium 2.6 mmol/L (3.5-5.1); Protein, Total 3.3 g/dL (6.0-8.3); Sodium 143 mmol/L (136-145)
[2018-11-20] MEDS ORDERED: diphenhydrAMINE 25 MG CAP PO SCH (07:45)
[2018-11-20] MEDS ORDERED: Potassium Chloride 10 MEQ in Premix Bag 1 BAG IVPB SCH (08:00)
[2018-11-20] MEDS ORDERED: predniSONE 5 MG TAB PO SCH (08:00)
[2018-11-20 08:54] LABS: Lactic Acid 4.4 mmol/L (0.5-2.2)
[2018-11-20 08:57] LABS: Anion Gap 23 mmol/L (10-20); BUN (Urea Nitrogen) 30 mg/dL (9.8-20.1); Calc. Creatinine Clearance 8 mL/min (70-130); Calcium 7.5 mg/dL (7.8-10.44); Carbon Dioxide 17 mmol/L (22-29); Chloride 100 mmol/L (98-107); Estimated GFR-MDRD 6; Glucose 232 mg/dL (70-105); Potassium 4.7 mmol/L (3.5-5.1); Sodium 135 mmol/L (136-145)
[2018-11-20] MEDS ORDERED: Pantoprazole 40 MG VIAL IVP SCH (09:00)
[2018-11-20] MEDS ORDERED: Famotidine/PF 20 mg/2ml Vial SLOW IVP SCH (09:00)
--- NOTE | 2018-11-20 09:56 | CON ---
DATE OF CONSULTATION: 11/20/2018 CONSULTING PHYSICIAN: Moises Roberto MD REASON FOR CONSULTATION: ICU management. HISTORY OF PRESENT ILLNESS: The patient is a 53-year-old female, who presents to the hospital with a several day history of abdominal pain in the right upper quadrant. It is a dull pain. It stays for a long time and it has been associated with some vomiting. She was found to have acalculous cholecystitis by an ultrasound and she is pending evaluation from surgery later today. She was placed in the ICU for transient hypotension, which responded to fluid. She did not require placement of a central line. PAST MEDICAL HISTORY: 1. Lupus. 2. End-stage renal disease, requiring hemodialysis 3 times weekly. 3. Asthma. 4. Stroke. 5. Hyperlipidemia. 6. Chronic pain. PAST SURGICAL HISTORY: 1. Dialysis access. 2. . 3. Appendectomy. ALLERGIES: CLONIDINE AND HUANG INHIBITORS. SOCIAL HISTORY: Has a remote history of cocaine and tobacco abuse. FAMILY MEDICAL HISTORY: Unremarkable. REVIEW OF SYSTEMS: Otherwise, negative. CURRENT MEDICATIONS: 1. Amlodipine 5 mg daily. 2. ProAir as needed. 3. [place] 10/325 one tablet every 6 hours as needed. 4. Furosemide 20 mg b.i.d. 5. Prednisone 5 mg daily. 6. Hydroxyzine 25 mg daily. PHYSICAL EXAMINATION: VITAL SIGNS: Temperature 98.5, pulse 68, blood pressure 108/83, and O2 saturation 94% on room air. GENERAL: She is a disheveled-appearing female, who is awake, alert, and in no distress. HEENT: Unremarkable. NECK: No adenopathy, JVD, or bruits. LUNGS: Clear without wheezing or rhonchi. CARDIAC: S1 and S2 regular without murmur. ABDOMEN: She has a positive Reis's sign. EXTREMITIES: No clubbing or cyanosis. She has dialysis shunt in left forearm. IMAGING DATA: Chest x-ray demonstrates no mass, effusion, or infiltrate. Heart size normal. Cultures show no growth to date at present. LABORATORY DATA: Sodium 143, potassium 2.6, chloride 110, CO2 of 15, BUN 17, creatinine 4.1, and calcium is noted at 4. White blood cell count 3.7, hematocrit 29.0, and platelet count 159. Of note, many of her lab values are grossly off compared to labs obtained several hours earlier, therefore the last set of labs are being redrawn. ASSESSMENT: 1. Acalculous cholecystitis. 2. Chronic renal insufficiency, requiring hemodialysis. 3. Systemic lupus erythematosus. PLAN: She is currently on antibiotics and awaiting general surgical evaluation. She does not have any findings that necessitated her being in the CCU. Await further lab investigation from this morning. Job ID: [id number]
[2018-11-20] MEDS: Piperacillin/Tazobactam 2.25 GM in Sodium Chloride 0.9% 100 ML IVPB SCH ×2 (10:00→21:06)
--- NOTE | 2018-11-20 13:44 | CON ---
DATE OF CONSULTATION: REASON FOR CONSULT: End-stage renal disease on maintenance hemodialysis. HISTORY OF PRESENT ILLNESS: This is a very pleasant 53-year-old female just discharged recently, who was admitted to the hospital for hypertension. The patient denies any nausea, vomiting, or chest pain. The patient did have nausea and vomiting yesterday. PAST MEDICAL HISTORY: End-stage renal disease, hypertension, systemic lupus erythematosus, asthma, CVA, hyperlipidemia, dialysis access, , and appendectomy. SOCIAL HISTORY: No alcohol or drug use. FAMILY HISTORY: Negative for ESRD. ALLERGIES: REVIEWED. REVIEW OF SYSTEMS: 15-point review of system was performed, negative except for positives noted above. GENERAL: HEAD: NECK: No swelling or lumps. NOSE: No epistaxis or discharge. EYES: No diplopia or pain. 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 NEUROPSYCHIATIC SYSTEMS: No suicidal ideation. No ideation. SKIN: Denies any rash or ulcer. CONSTITUTIONAL: No fever or chills. PHYSICAL EXAMINATION: CONSTITUTIONAL: The patient is awake and alert. VITAL SIGNS: Pulse 75, breathing 16, and blood pressure 103/86. GENERAL APPEARANCE AND MENTAL STATUS: Fair. HEAD/NECK: Normocephalic. Atraumatic. EYES: EOMI. No deformity. EARS: Clear. No ulcers. NOSE: Intact. No lesions. MOUTH: Clear. No discharge. THROAT: Clear. No exudate. LUNGS: Clear. No crackles. CARDIAC: S1, S2. No rub. ABDOMEN: Benign. Bowel sounds positive. GENITALIA/RECTUM: Devries absent. BACK/EXTREMITIES: Edema 0+. NEUROLOGICAL: Alert and motor intact. SKIN: LYMPHATICS: LABORATORY DATA: Labs show hemoglobin 9.3. Potassium 4.7 and creatinine 8.2. ASSESSMENT AND PLAN: Stage 6 chronic kidney disease, no indication for dialysis. Hypertension, stable. Anemia, stable. Medications based on GFR appropriate. Job ID: [id number]
[2018-11-20] MEDS ORDERED: Acetaminophen 1,000 MG in Premix Bag 1 BAG IVPB PRN ×2 (16:05→18:00)
[2018-11-20] MEDS ORDERED: Acetaminophen 500 MG TAB PO PRN (16:06)
[2018-11-20] MEDS ORDERED: traMADol HCl 50 MG TAB PO PRN (16:06)
[2018-11-20] MEDS ORDERED: Ketorolac Tromethamine 30 MG/ML VIAL IVP SCH (16:15)
[2018-11-20] MEDS ORDERED: Acetaminophen 1,000 MG in Premix Bag 1 BAG IVPB SCH (16:15)
[2018-11-20] MEDS ORDERED: Ketorolac Tromethamine 30 MG/ML VIAL ONE (16:17)
--- NOTE | 2018-11-20 16:33 | CON ---
DATE OF CONSULTATION: HISTORY OF PRESENT ILLNESS: Ms. Bearden is a 53-year-old female, dialyzes Friday, Friday, and Friday, [facility], [place] [facility], utilizing a left upper arm fistula that I provided her in the past. The patient has had problems with right upper quadrant pain and epigastric pain. Previously evaluated in the hospital with December 2017 ultrasound demonstrating gallbladder wall thickening, bile duct prominence. The patient underwent a HIDA scan on 11/16/2018, that visualized the gallbladder, but ejection fraction not performed as the patient refused. The patient on 11/19/2018, had abdominal and pelvis CAT scan demonstrating inflammatory changes in the gallbladder consistent with cholecystitis. The patient lives by herself on [address]. HOME MEDICATIONS: Include, 1. Norvasc 5 mg daily. 2. ProAir two puffs p.r.n. 3. Hydrocodone p.r.n. 4. Furosemide 20 mg b.i.d. 5. Prednisone 5 mg daily. 6. Hydroxyzine p.r.n. PHARMACY: [facility], #[id number], #[id number]. PAST SURGICAL HISTORY: December 2014, the patient had a colonoscopy by Dr. Frederick, that was normal. 05/04/2016, she had placement of a tunneled hemodialysis catheter. 05/13/2016, she had exploration of her right arm, finding antecubital veins to be obstructed, cephalic vein outflow and basilic vein, a dialysis graft was placed. She returned to the operating room on 05/27/2016, had a tunneled hemodialysis catheter. On 11/01/2016, because the graft was thrombosed and her history of lupus, she underwent a primary fistula. She had a right femoral vein triple-lumen hemodialysis catheter placed temporarily to the kidney dialysis 11/04/2016. Right IJ was noted to be occluded and left IJ cuffed tunneled dialysis catheter was placed, and the left arm fistula performed. Outflow cephalic vein 3.5 mm coronary dilator. There was some stenosis of the vein. She was taken back to the operating on 01/28/2017 for revision of left arm fistula with ligation of collaterals and transposition of fistula laterally and ligation of basilic vein outflow, which was small caliber. Dr. Ovalle saw her March 05, 2018, for an epigastric hernia, which was repaired with mesh. She is now admitted by Dr. Roberto yesterday with complaints of epigastric pain, right upper quadrant pain, nausea, and vomiting. Ultrasound and CAT scan results noted. Chest x-ray performed. Echocardiogram, February 2016, normal LV function. No significant valvular disease, except for moderate to severe tricuspid regurgitation, mild mitral regurgitation, and pulmonic regurgitation. PHYSICAL EXAMINATION: VITAL SIGNS: Height 5 feet 9 inches, 137 pounds, 29 BMI. Temperature 98.2, pulse 70, blood pressure 126/61. HEAD, EARS, EYES, NOSE AND THROAT: Unremarkable. LUNGS: Clear to auscultation. CARDIAC: Regular rate and rhythm with 2/6 ejection murmur. ABDOMEN: Soft. Tenderness in right upper quadrant and epigastrium with guarding. EXTREMITIES: Unremarkable. LABORATORY DATA: White count 3.7, hemoglobin 9.3. Sodium 135, potassium 5.7, creatinine 8.2, GFR 6. ASSESSMENT AND PLAN: 1. Cholecystitis by CAT scan, ultrasound, distended gallbladder with gallbladder wall thickening. She is tender. I would recommend laparoscopic video cholecystectomy. Risks of infection, bleeding, visceral and biliary injury discussed. She consents. 2. End-stage renal disease, on maintenance dialysis. 3. Lupus. 4. Hypertension. 5. Functioning fistula, left upper arm. Job ID: [id number]
[2018-11-20] MEDS ORDERED: diphenhydrAMINE 50 MG/ML VIAL ONE ×2 (17:01→17:20)
[2018-11-20] MEDS ORDERED: Promethazine HCl 25 MG/ML VIAL SLOW IVP PRN (17:03)
[2018-11-20] MEDS ORDERED: Promethazine HCl 25 MG/ML VIAL IM PRN (17:03)
[2018-11-20] MEDS ORDERED: Ondansetron HCl/PF 4 MG/2 ML Vial IVP PRN (17:03)
[2018-11-20] MEDS ORDERED: Calcium Chloride 1 GM/10 ML Abboject SYRINGE ONE (17:20)
[2018-11-20] MEDS ORDERED: ePHEDrine 50 MG/ML VIAL ONE (17:20)
[2018-11-20] MEDS ORDERED: Lidocaine 2% PF 5 ML VIAL ONE (17:20)
[2018-11-20] MEDS ORDERED: Hydrocortisone Sod Succ/PF 100 mg/2 ml Vial ONE (17:20)
[2018-11-20] MEDS ORDERED: SUGAMMADEX SODIUM 200 MG/2 ML VIAL ONE (17:20)
[2018-11-20] MEDS ORDERED: Rocuronium Bromide 10 MG/ML (10ML VIAL) ONE (17:20)
[2018-11-20] MEDS ORDERED: Ondansetron PF 4 MG/2 ML Vial ONE (17:20)
[2018-11-20] MEDS ORDERED: Fentanyl 100 MCG/2 ML VIAL ONE (17:20)
[2018-11-20] MEDS ORDERED: EPINEPHrine 1 MG/10 ML Abboject SYRINGE ONE ×3 (17:20→19:13)
[2018-11-20] MEDS ORDERED: Sodium Bicarb 50 MEQ/50 ML VIAL ONE ×3 (17:20→19:21)
[2018-11-20] MEDS ORDERED: PROPOFOL 200 MG/20 ML VIAL ONE (17:20)
[2018-11-20] MEDS ORDERED: PHENYLEPHRINE-NS 100 MCG/ML 10 ML SYRINGE ONE (17:20)
[2018-11-20] MEDS ORDERED: Bupivacaine HCl 0.5%/Epinephrine 1:200,000/PF 30 ml Vial ONE (17:22)
[2018-11-20] MEDS ORDERED: SUGAMMADEX SODIUM 500 MG/5 ML VIAL ONE (17:30)
[2018-11-20] MEDS ORDERED: Piperacillin/Tazobactam 3.375 GM VIAL ONE (18:01)
[2018-11-20] MEDS ORDERED: Albumin 5% 250 ML ONE ×2 (18:04→18:21)
--- NOTE | 2018-11-20 18:08 | PDOC.HOSPP ---
- Subjective Encounter Date: 11/20/18 Encounter Time: 18:07 Subjective: Ms. Bearden was seen today in follow-up of acute acalculous cholecystitis. She says she continues to have abdominal pain, and some nasea. She denies any other complaints. - Objective Vital Signs & Weight: Vital Signs (12 hours) Temp Pulse Pulse Pulse Resp BP BP 11/20/18 15:20 98.2 F 70 17 11/20/18 11:55 98.2 F 83 22 H 11/20/18 11:00 73 71 117/84 108/80 11/20/18 08:00 98.0 F BP Pulse Ox Pulse Ox Pulse Ox 11/20/18 15:20 126/61 96 11/20/18 11:55 100/72 94 L 11/20/18 11:00 94 L 98 11/20/18 08:00 94 L Weight Weight 137 lb 2.04 oz Most Recent Monitor Data Heart Rate from ECG 70 NIBP 103/86 NIBP BP-Mean 91 Respiration from ECG 24 SpO2 98 I&O: 11/19/18 11/20/18 11/21/18 06:59 06:59 06:59 Intake Total 644 30 Output Total 0 0 Balance 644 30 Result Diagrams: 11/20/18 01:45 11/20/18 08:22 Hospitalist ROS - Medication Medications: Active Medications Generic Name Dose Route Start Last Admin Trade Name Freq PRN Reason Stop Dose Admin Hydrocodone Bitart/Acetaminophen 1 tab 11/19/18 22:32 11/20/18 10:09 Porter 5/325 PO 1 tab Q4H PRN Administration Moderate Pain (4-6) Hydroxyzine HCl 10 mg 11/20/18 02:20 11/20/18 02:51 Atarax PO 10 mg BIDPRN PRN Administration Itching Dextrose/Sodium Chloride 1,000 mls @ 50 mls/hr 11/19/18 22:45 11/20/18 01:40 D5 0.9% Ns IV 11/21/18 14:44 1,000 mls .Q20H INGRID Administration Piperacillin Sod/Tazobactam 100 mls @ 200 mls/hr 11/20/18 09:00 11/20/18 10: 00 Sod 2.25 gm/ Sodium Chloride IVPB 100 mls Q12HR INGRID Administration Acetaminophen 1,000 mg/ Device 100 mls @ 400 mls/hr 11/20/18 16:15 11/20/18 16:28 IVPB 11/20/18 18:15 Not Given NOW [facility] Ketorolac Tromethamine 15 mg 11/20/18 16:15 11/20/18 16:28 Toradol IVP 11/20/18 18:15 Not Given NOW [facility] Prednisone 5 mg 11/20/18 08:00 11/20/18 08:07 Prednisone PO 5 mg QAM-WM INGRID Administration Promethazine HCl 25 mg 11/19/18 22:35 11/20/18 11:06 Phenergan PO 25 mg Q6H PRN Administration Nausea - Exam General Appearance: ill appearing Eye: PERRL, anicteric sclera Heart: RRR, no murmur, no gallops, no rubs, normal peripheral pulses Respiratory: CTAB, no wheezes, no rales, no ronchi, normal chest expansion, no tachypnea, normal percussion Gastrointestinal: tender to palpation (+ right upper quadrant tenderness), distended, voluntary guarding Extremities: no cyanosis, no edema Hosp A/P (1) Acute acalculous cholecystitis Code(s): K81.0 - ACUTE CHOLECYSTITIS Status: Acute (2) Moderate protein malnutrition Code(s): E44.0 - MODERATE PROTEIN-CALORIE MALNUTRITION Status: Chronic (3) ESRD (end stage renal disease) on dialysis Code(s): N18.6 - END STAGE RENAL DISEASE; Z99.2 - DEPENDENCE ON RENAL DIALYSIS Status: Chronic (4) Hypertension Code(s): I10 - ESSENTIAL (PRIMARY) HYPERTENSION Status: Chronic Qualifiers: (5) Systemic lupus erythematosus Code(s): M32.9 - SYSTEMIC LUPUS ERYTHEMATOSUS, UNSPECIFIED Status: Chronic - Plan * Acute acalculous cholecystitis- Surgery has been consulted * Continue IV antibiotics in the interim * ESRD- dialysis as per Nephrology * HTN- blood pressure - stable * SLE- stable * Moderate malnutrition- this may complicate her recovery
[2018-11-20] MEDS ORDERED: Midazolam HCl 2 mg/2 ml Vial ONE (18:12)
[2018-11-20] MEDS ORDERED: Norepinephrine 4 MG/4 ML VIAL ONE ×3 (18:25→19:14)
[2018-11-20] MEDS ORDERED: Sodium Bicarbonate 2.5 MEQ/5 ML VIAL ONE ×2 (18:35→19:21)
[2018-11-20] MEDS ORDERED: Hydrocortisone Sod Succ/PF 250 mg/2 ml Vial ONE (19:02)
[2018-11-20] MEDS ORDERED: Lorazepam 2 MG/ML VIAL SLOW IVP PRN (19:14)
[2018-11-20] MEDS ORDERED: Fentanyl BOLUS 250 ML IVPB PRN (19:14)
[2018-11-20] MEDS ORDERED: Propofol BOLUS 1,000 MG/100 ML VIAL IV PRN (19:14)
[2018-11-20] MEDS ORDERED: fentaNYL Citrate/PF 2,000 MCG in Sodium Chloride 0.9% 60 ML IV SCH (19:14)
[2018-11-20] MEDS ORDERED: DISCONTINUE PREVIOUS NARCOTIC PAIN MEDICATIONS AND BENZODIAZEPINES FS SCH (19:14)
[2018-11-20] MEDS ORDERED: Sodium Chloride 0.9% 1,000 ML IV SCH (19:15)
[2018-11-20] MEDS ORDERED: Ventilator Sedation Protocol 1 EACH FS SCH (19:15)
--- NOTE | 2018-11-20 20:00 | RAD ---
PORTABLE CHEST: 11/20/18 HISTORY: Respiratory distress. COMPARISON: 11/19/18 study. Heart size is enlarged. There has been interval placement of an endotracheal tube. Lungs remain clear . IMPRESSION: Cardiomegaly with endotracheal tube in satisfactory position. POS: [facility]
[2018-11-20 20:01] LABS: Actual Bicarbonate (HCO3a) 13.1 mEq/L (22-28); Base Excess (BEa) -10.1 mEq/L (-2.0 to +3.0); Calcium, Ionized 0.98 mmol/L (1.12-1.30); Carboxyhemoglobin (COHb) 0.3 gm% (0.0-3.0); Hemoglobin (Hb) 10.9 g/dL (12.0-16.0); O2 Tension (PaO2) 417.2 mmHg (80.0-100.0); Potassium - ABG Lab 4.59 mmol/L (3.70-5.30); pH, Arterial 7.39 (7.35-7.45)
[2018-11-20 20:12] LABS: INR-International Normal Ratio 1.7; Prothrombin Time 19.9 SEC (12.0-14.7)
[2018-11-20 20:25] LABS: Anion Gap 27 mmol/L (10-20); BUN (Urea Nitrogen) 34 mg/dL (9.8-20.1); Calc. Creatinine Clearance 8 mL/min (70-130); Carbon Dioxide 14 mmol/L (22-29); Chloride 102 mmol/L (98-107); Estimated GFR-MDRD 6; Glucose 72 mg/dL (70-105); Potassium 4.6 mmol/L (3.5-5.1); Sodium 138 mmol/L (136-145)
[2018-11-20 20:28] LABS: CO2 Tension 22.2 mmHg (35.0-45.0)
[2018-11-20 20:29] LABS: Puncture Site ALINE
[2018-11-20 20:40] LABS: Band 7 % (5-11); Hemoglobin 10.8 g/dL (12.0-16.0); Lymphocytes 13 % (21-51); MDiff Complete? YES; Mean Corpuscular HGB CONC 32.5 g/dL (32.0-36.0); Mean Corpuscular Hemoglobin 28.9 pg (27.0-31.0); Mean Corpuscular Volume 89.1 fL (78.0-98.0); Mean Platelet Volume 8.2 fL (7.4-10.4); Monocytes 7 % (0-10); Neutrophil 73 % (42-75); Nucleated RBC 1 % (0); Platelet Count 239 thou/uL (130-400); Polychromasia SLIGHT = 2-3 cells (100X) (0-2/hpf); RBC Distribution Width 14.1 % (11.5-14.5); Red Blood Cell (RBC) Count 3.72 mill/uL (4.20-5.40); White Blood Cell (WBC) Count 8.5 thou/uL (4.8-10.8)
--- NOTE | 2018-11-20 20:48 | CON ---
DATE OF CONSULTATION: 11/20/2018 REASON FOR CONSULTATION: Hypotension and EKG changes. HISTORY OF PRESENT ILLNESS: Ms. Bearden is a pleasant 53-year-old female, who comes to the hospital for abdominal pain, nausea, and vomiting. She was diagnosed with what appears to be acalculous cholecystitis and was taken to the OR earlier today. Towards the end of the of the procedure, she became a lot more hypotensive and appeared to have EKG changes on the monitor, so Cardiology is being consulted for this. On my evaluation, Ms. Bearden is intubated and sedated. She just made it to the ICU. Her blood pressure is already starting to come up. She is on max dose of Levophed at this time. She is sedated and intubated, and I cannot get much history from her. PAST MEDICAL HISTORY: 1. End-stage renal disease, on hemodialysis. 2. Systemic lupus erythematosus, on chronic steroid. 3. Mild intermittent asthma. 4. History of CVA. 5. Hyperlipidemia. 6. Chronic pain syndrome. 7. Anemia of chronic disease secondary to renal insufficiency. SURGICAL HISTORY: 1. Dialysis access. 2. . 3. Appendectomy. 4. Laparoscopic cholecystectomy just now. OUTPATIENT MEDICATIONS: 1. Amlodipine 5 mg a day. 2. Albuterol inhaler. 3. Hydrocodone p.r.n. 4. Furosemide 20 mg b.i.d. 5. Prednisone mg a day. 6. Hydroxyzine. ALLERGIES: 1. HUANG INHIBITORS. 2. CLONIDINE. 3. NITROGLYCERIN. SOCIAL HISTORY: Lives at home with her family. No tobacco, alcohol, or drugs. History of tobacco and cocaine use in the remote past. FAMILY HISTORY: Noncontributory. No early coronary artery disease. REVIEW OF SYSTEMS: Unobtainable as the patient is sedated and intubated. PHYSICAL EXAMINATION: VITAL SIGNS: Temperature 98.2, pulse 70, respiratory rate 17, saturations 96% on room air, and blood pressure 126/61. GENERAL: Sedated and intubated. HEENT: Normocephalic and atraumatic. NECK: Supple. LUNGS: Mild expiratory wheezes. CARDIOVASCULAR: S1 and S2. No S3 or S4. There is a grade 2/6 systolic murmur at the right upper sternal border. ABDOMEN: Soft. Positive bowel sounds. EXTREMITIES: Trace edema. SKIN: Warm and dry. LABORATORY WORK: Reviewed. CBC with a white count of 5.2; hemoglobin of 12.4 on admission, hemoglobin is down to 9.3 this morning, but a repeat hemoglobin is 11.1 on an ABG just now. Coags; INR was 2.0. Chemistry with a potassium of 2.6, up to 4.7 this morning. Elevated BUN and creatinine. Lactic acid of 4.4. Troponin is negative x2. BNP was 2637. Albumin of 1.7. Lipase of 23. EKG on arrival to the ICU was reviewed. She has very mild ST depression, maybe 0.5 mm in the inferior leads. No evidence of an acute AR. Chest x-ray is pending. ASSESSMENT: 1. Postoperative hypotension. Slowly resolving. 2. Anemia of chronic disease. Minimal bleeding during surgery. 3. Acalculous cholecystitis, status post laparoscopic cholecystectomy. 4. End-stage renal disease, on hemodialysis. 5. Systemic lupus erythematosus, on chronic steroids. PLAN: 1. We will get a stat echo, make sure LV function remains normal. 2. We will trend troponins. 3. Unlikely that this was a cardiac event. We will make sure of this as above. 4. We will follow. Over 45 minutes of critical care at bedside. Job ID: [id number]
[2018-11-20 20:50] LABS: CKMB 1.6 ng/mL (0-6.6)
[2018-11-20] MEDS: Hydrocortisone Sod Succ/PF 100 mg/2 ml Vial IVP SCH (21:06)
[2018-11-20] MEDS: Sodium Chloride 0.9% 1,000 ML IV SCH (21:21)
[2018-11-20] MEDS ORDERED: Albuterol Sulfate 2.5 mg/0.5 ml Neb NEB SCH (22:30)
[2018-11-20] MEDS: Albuterol Sulfate 2.5 mg/3 ml Neb NEB SCH (22:39)
[2018-11-20] MEDS ORDERED: Dextrose 50% Abboject 50 ML SYRINGE SLOW IVP PRN (23:09)
[2018-11-20] MEDS ORDERED: Dextrose 5% in Water 1,000 ML IV PRN (23:09)
[2018-11-21] MEDS: Propofol 1,000 MG/100 ML VIAL IV PRN ×2 (01:50→14:00)
--- NOTE | 2018-11-21 01:59 | OP ---
DATE OF PROCEDURE: 11/20/2018 PREOPERATIVE DIAGNOSES: Chronic cholecystitis, acalculous. CAT scan, inflammatory changes. Ultrasound, distended gallbladder. Lupus, hypertension. POSTOPERATIVE DIAGNOSES: Chronic cholecystitis, acalculous. CAT scan, inflammatory changes. Ultrasound, distended gallbladder. Lupus, hypertension with intraoperative hypotension requiring Levophed drip. PROCEDURE PERFORMED: Laparoscopic video cholecystectomy, Avitene in place. Left femoral vein central line. ANESTHESIA: General. Note; postoperatively, the patient went to the ICU on the ventilator on a Levophed drip. DESCRIPTION OF PROCEDURE: The patient was taken to the operating room, where under general anesthesia, abdomen was prepared with ChloraPrep and draped in routine fashion. Local anesthetic was infiltrated in the skin and subcutaneous tissue about each port site. 0.5% Marcaine with epinephrine was used. Total volume infused. A supraumbilical incision was made. Pneumoperitoneum to 15 mmHg obtained with the Veress needle, replaced with a 5 port and laparoscope was inserted. Right subxiphoid incision was made and 11 port placed. Right subcostal incision was made at midclavicular entrance line and the 5 port was placed. Liver was dark, but not cirrhotic. It was smooth. Gallbladder had a greatly thickened wall. Fundus grasped at the cephalad. There were some omental adhesions taken down, these were chronic. Cautery was used to establish the hemostasis. Infundibulum grasped, dissected free. Cystic duct dissected free. It was very friable and required tedious dissection. Cystic artery identified, doubly clipped proximally, divided. Critical view obtained. Cystic duct triply clipped and divided. Gallbladder and contents removed from liver bed. There was bleeding from the liver bed requiring high voltage cautery. Good hemostasis noted. Ian was applied. Gallbladder was removed. Pneumoperitoneum irrigant evacuated. During the latter part of the procedure, the patient developed intraoperative hypotension requiring epinephrine, reduction in pneumoperitoneum and Levophed drip. I then placed a left femoral vein catheter. Sterile prep was used with ChloraPrep. Seldinger technique was used to place a triple-lumen catheter, securing with a 3-0 silk suture and three pursestring sutures of 3-0 silk applied. Pressure held for hemostasis. The patient was transferred to the ICU in critical condition on Levophed drip. Job ID: [id number]
[2018-11-21] MEDS: Albuterol Sulfate 2.5 mg/3 ml Neb NEB SCH ×6 (02:02→22:34)
[2018-11-21 04:48] LABS: INR-International Normal Ratio 1.8; Prothrombin Time 20.9 SEC (12.0-14.7)
[2018-11-21 04:59] LABS: #Lymphocytes 0.7 thou/uL (1.20-3.40); #Monocytes 0.5 thou/uL (0.11-0.59); #Neutrophils 10.5 thou/uL (1.40-6.50); %Eosinophils 0.3 % (0.0-10.0); %Lymphocytes 5.9 % (21.0-51.0); %Monocytes 3.9 % (0.0-10.0); %Neutrophils 89.9 % (42.0-75.0); Hemoglobin 11.3 g/dL (12.0-16.0); Mean Corpuscular HGB CONC 33.6 g/dL (32.0-36.0); Mean Corpuscular Hemoglobin 29.3 pg (27.0-31.0); Mean Corpuscular Volume 87.3 fL (78.0-98.0); Mean Platelet Volume 8.3 fL (7.4-10.4); Platelet Count 208 thou/uL (130-400); RBC Distribution Width 14.3 % (11.5-14.5); Red Blood Cell (RBC) Count 3.85 mill/uL (4.20-5.40); White Blood Cell (WBC) Count 11.7 thou/uL (4.8-10.8)
[2018-11-21 05:11] LABS: ALT (SGPT) 23 U/L (8-55); AST (SGOT) 49 U/L (5-34); Albumin 3.1 g/dL (3.5-5.0); Alkaline Phosphatase 73 U/L (40-110); Anion Gap 28 mmol/L (10-20); BUN (Urea Nitrogen) 39 mg/dL (9.8-20.1); Bilirubin, Total 2.3 mg/dL (0.2-1.2); Calc. Creatinine Clearance 7 mL/min (70-130); Calcium 7.4 mg/dL (7.8-10.44); Carbon Dioxide 15 mmol/L (22-29); Chloride 103 mmol/L (98-107); Estimated GFR-MDRD 6; Globulin 2.7 g/dL (2.4-3.5); Glucose 129 mg/dL (70-105); Potassium 4.4 mmol/L (3.5-5.1); Protein, Total 5.8 g/dL (6.0-8.3); Sodium 142 mmol/L (136-145)
[2018-11-21] MEDS: Hydrocortisone Sod Succ/PF 100 mg/2 ml Vial IVP SCH ×3 (05:12→21:00)
[2018-11-21 05:28] LABS: CKMB 3.5 ng/mL (0-6.6)
[2018-11-21] MEDS: Sodium Chloride 0.9% 1,000 ML IV SCH ×2 (05:51→10:16)
[2018-11-21] MEDS: Norepinephrine 8 MG in Dextrose 5% in Water 242 ML IVPB PRN ×2 (07:29→20:53)
[2018-11-21 07:31] LABS: Actual Bicarbonate (HCO3a) 15.4 mEq/L (22-28); Base Excess (BEa) -7.6 mEq/L (-2.0 to +3.0); Calcium, Ionized 0.93 mmol/L (1.12-1.30); Carboxyhemoglobin (COHb) 0.5 gm% (0.0-3.0); Hemoglobin (Hb) 11.4 g/dL (12.0-16.0); O2 Tension (PaO2) 159.2 mmHg (80.0-100.0); Potassium - ABG Lab 4.22 mmol/L (3.70-5.30); pH, Arterial 7.41 (7.35-7.45)
[2018-11-21 07:50] LABS: CO2 Tension 24.8 mmHg (35.0-45.0)
[2018-11-21 07:51] LABS: Puncture Site ALINE
--- NOTE | 2018-11-21 08:19 | PRG ---
DATE OF SERVICE: 11/21/2018 45 minutes of critical care time. SUBJECTIVE: This patient was left intubated after cholecystectomy yesterday because of some postoperative hypotension, which is now resolved. She is awake and follows commands for me. OBJECTIVE: VITAL SIGNS: Her temperature is 98.6, pulse 86, blood pressure 103/76, respiratory rate 24. Intake for 24 hours 1137, output 0. She was not dialyzed yesterday. HEENT: Exam is unremarkable. NECK: No JVD. LUNGS: Few crackles anteriorly. CARDIAC: S1, S2. Regular. ABDOMEN: Soft and nontender. EXTREMITIES: No edema. LABORATORY DATA: ABG; pH 7.41, pCO2 24, PO2 159 on SIMV rate 24, tidal volume 450, PEEP 5, pressure support 10, and FiO2 of 50%. White blood cell count 11.7, hematocrit 33.6, and platelet count 208. Sodium 142, potassium 4.4, chloride 103, CO2 of 15, BUN 39, creatinine 8.6, and glucose 129. Troponin 0.886. Her chest x-ray postop yesterday demonstrated cardiomegaly without evidence of mass, effusion, or infiltrate. ASSESSMENT: 1. Transient postoperative hypotension, which is resolved. 2. Status post cholecystectomy. 3. Systemic lupus erythematosus. 4. Chronic renal failure, requiring hemodialysis. 5. Acute respiratory failure, requiring mechanical ventilation. PLAN: I believe the patient is safe to extubate. She will probably need dialysis today. She is continuing antibiotics for the sepsis related to acalculous cholecystitis. So far cultures are sterile. Job ID: [id number]
[2018-11-21] MEDS: Piperacillin/Tazobactam 2.25 GM in Sodium Chloride 0.9% 100 ML IVPB SCH ×2 (10:15→20:53)
--- NOTE | 2018-11-21 13:24 | PDOC.CPN ---
- Subjective Date: 11/21/18 Time: 13:19 Interval history: No new issues, she remains intubated and sedated and was not able to be extubated earlier today. - Review of Systems ROS unobtainable: due to endotracheal tube - Objective Allergies/Adverse Reactions: Allergies Allergy/AdvReac Type Severity Reaction Status Date / Time HUANG Inhibitors Allergy Verified 05/28/18 00:22 clonidine Allergy Verified 05/28/18 00:22 nitroglycerin Allergy Verified 05/28/18 00:22 Visit Medications: Current Medications Albuterol Sulfate (Ventolin) 2.5 mg NEB [id number] INGRID Last Admin: 11/21/18 11:06 Dose: 2.5 mg Albuterol/Ipratropium (Duoneb) 3 ml NEB Q4H PRN PRN Reason: SOB &/or Wheezing Dextrose/Water (Dextrose 50%) 25 gm SLOW IVP PRN PRN PRN Reason: Hypoglycemia Last Admin: 11/20/18 23:35 Dose: 25 gm Glucagon (Glucagon) 1 mg IM PRN PRN PRN Reason: Hypoglycemia Hydrocortisone Sodium Succinate (Solu-Cortef) 100 mg IVP Q8HR [facility] Last Admin: 11/21/18 05:12 Dose: 100 mg Dextrose/Sodium Chloride (D5 0.9% Ns) 1,000 mls @ 50 mls/hr IV .Q20H [facility] Stop: 11/21/18 14:44 Last Admin: 11/20/18 18:44 Dose: Not Given Piperacillin Sod/Tazobactam (Sod 2.25 gm/ Sodium Chloride) 100 mls @ 200 mls/ hr IVPB Q12HR [facility] Last Admin: 11/21/18 10:15 Dose: 100 mls Piperacillin Sod/Tazobactam (Sod 0.75 gm/ Sodium Chloride) 50 mls @ 100 mls/hr IVPB WILLCALL INGRID Acetaminophen 1,000 mg/ Device 100 mls @ 400 mls/hr IVPB Q6H PRN PRN Reason: Fever/Mild Pain Stop: 11/21/18 16:00 Sodium Chloride (Normal Saline 0.9%) 1,000 mls @ 100 mls/hr IV .Q10H INGRID Last Admin: 11/21/18 10:16 Dose: 1,000 mls Fentanyl Citrate 2,000 mcg/ (Sodium Chloride) 100 mls @ 0 mls/hr IV INF INGRID; Protocol Stop: 12/20/18 19:14 Fentanyl Citrate (Fentanyl Bolus) 250 mls @ 0 mls/hr IVPB PRN PRN PRN Reason: Breakthrough pain/agitation Stop: 12/20/18 19:14 Dextrose/Water (D5w) 1,000 mls @ 0 mls/hr IV .Q0M PRN PRN Reason: Hypoglycemia Norepinephrine Bitartrate 8 mg (/ Dextrose/Water) 250 mls @ 0 mls/hr IVPB PRN PRN; Protocol PRN Reason: Blood Pressure Last Admin: 11/21/18 07:29 Dose: 250 mls Lorazepam (Ativan) 2 mg SLOW IVP Q1H PRN PRN Reason: Breakthrough agitation Stop: 12/20/18 19:14 Mineral Oil/White Petrolatum (Systane Nighttime Eye Ointment) 0 gm EA EYE PRN PRN PRN Reason: Dry Eyes Miscellaneous Medication (Pharmacy To Dose) 1 each IVPB PRN PRN PRN Reason: Pharmacy to dose Morphine Sulfate (Morphine) 2 mg SLOW IVP Q1H PRN PRN Reason: BREAKTHROUGH PAIN/Agitation Stop: 12/20/18 19:14 Discontinue Previous Narcotic Pain Medications And Benzodiazepines 1 each FS .ONE INGRID Stop: 12/20/18 19:14 Propofol (Diprivan) 1,000 mg IV INF PRN; Protocol PRN Reason: TO ACHIEVE GOAL RASS Stop: 12/20/18 19:14 Last Admin: 11/21/18 01:50 Dose: 1,000 mg Propofol (Diprivan Bolus) 20 mg IV Q5MIN PRN PRN Reason: BREAKTHROUGH AGITATION Stop: 12/20/18 19:14 Sodium Chloride (Flush - Normal Saline) 10 ml IVF PRN PRN PRN Reason: Saline Flush Last Admin: 11/20/18 21:06 Dose: 10 ml Sodium Chloride (Normal Saline Pf) 10 ml FS PRN PRN PRN Reason: RECONSTITUTION Vital Signs & Weight: Vital Signs Temp Pulse Resp BP Pulse Ox 11/21/18 11:08 86 108/73 11/21/18 11:06 87 25 H 93 L 11/21/18 06:43 73 87/62 L 11/21/18 06:40 75 24 H 11/21/18 06:00 24 H 11/21/18 05:00 98.6 F 11/21/18 04:00 24 H 11/21/18 02:02 78 24 H 11/21/18 02:00 24 H Admit Weight 137 lb Weight 150 lb 2.157 oz - Physical Exam General: other (Sedated, intubated.) Neck: supple neck, midline trachea Cardiac: regular rate and rhythm, no murmur Lungs: bibasilar rales Neuro: other (intubated) Abdomen: active bowel sounds, soft, non-tender Skin: clear Musculoskeletal: normal range of motion - Labs Result Diagrams: 11/21/18 04:28 11/21/18 04:28 Troponin/CKMB CK-MB (CK-2) 3.5 ng/mL (0-6.6) 11/21/18 04:28 Troponin I 0.886 ng/mL (< 0.028) H* 11/21/18 04:28 - Telemetry Sinus rhythms and dysrhythmias: sinus rhythm - Assessment/Plan Assessment/Plan: 1, Hypotension post op. 2. Volume overload. 3. Severe pulmonary HTN 4. ESRD. 5. Acalculous cholecystitis, S/P Lap lisy 6. Type 2 [place], demand ischemia. PLAn; - Needs to get volume out. - HD later today for this, hopefully her BP will let us take fluids out. - Continue pressor support. - Likely her troponin bump is related to her ESRD and volume overload. - Critical Care Time Critical care time (mins): 30
--- NOTE | 2018-11-21 14:48 | PRG ---
DATE OF SERVICE: 11/21/2018 SUBJECTIVE: This is a 53-year-old female, being seen for end-stage renal disease. The patient is intubated. OBJECTIVE: CONSTITUTIONAL: The patient is resting. VITAL SIGNS: Afebrile. Pulse 80, breathing 16, blood pressure 112/78. GENERAL APPEARANCE AND MENTAL STATUS: Fair. HEAD/NECK: Normocephalic. Atraumatic. EYES: EOMI. No deformity. EARS: Clear. No ulcers. NOSE: Intact. No lesions. MOUTH: Clear. No discharge. THROAT: Clear. No exudate. LUNGS: Clear. No crackles. CARDIAC: S1, S2. No rub. ABDOMEN: Benign. Bowel sounds positive. GENITALIA/RECTUM: Devries absent. BACK/EXTREMITIES: Edema 0+. NEUROLOGICAL: The patient is resting. SKIN: LYMPHATICS: LABORATORY DATA: Labs showed hemoglobin 11.3, bicarb 15. ASSESSMENT AND PLAN: 1. Stage 6 chronic kidney disease. Plan dialysis. 2. Hypertension, stable. 3. Anemia, stable. 4. We will plan ultrafiltration as tolerated. We will hold ultrafiltration if blood pressure drops or Levophed increases. Job ID: [id number]
--- NOTE | 2018-11-21 16:41 | PRG ---
DATE OF SERVICE: 11/21/2018 SUBJECTIVE: Vivian Bearden is on the ventilator. Efforts to wean her this morning were not possible. Hopefully, that will be possible tomorrow after she dialyzes today. Her Levophed has been weaned off. OBJECTIVE: VITAL SIGNS: Heart rate 83, blood pressure 115/80. OG tube is in place and has not put out much. She is aneuric and end-stage renal disease, on hemodialysis, underwent hemodialysis now. LUNGS: Clear to auscultation. CARDIAC: Rhythm murmur or gallop. ABDOMEN: Soft plus bowel sounds. Postoperative tenderness expected. EXTREMITIES: Unremarkable. LABORATORY DATA: Hemoglobin 11.3, white count 11.7. PTT 20, INR 1.8. Her bilirubin is slightly elevated at 2.3, AST 49. ASSESSMENT AND PLAN: Postoperative laparoscopic cholecystectomy with intraoperative hypotension, requiring Levophed and ventilatory. She will continue on the ventilator today. Levophed is off. Continue supportive medical care. I would recheck if bilirubin is elevated. Recheck her liver function test tomorrow. Job ID: [id number]
--- NOTE | 2018-11-21 17:08 | PDOC.HOSPP ---
- Subjective Encounter Date: 11/21/18 Encounter Time: 10:00 Subjective: Ms. Bearden was seen today in follow-up of acute cholecystitis. She developed hypotension during the procedure yesterday, and was left intubated. She is awake and alter. - Objective Vital Signs & Weight: Vital Signs (12 hours) Pulse Resp BP Pulse Ox 11/21/18 14:46 83 115/80 11/21/18 14:44 82 14 93 L 11/21/18 11:08 86 108/73 11/21/18 11:06 87 25 H 93 L 11/21/18 10:00 24 H 11/21/18 08:00 28 H 11/21/18 06:43 73 87/62 L 11/21/18 06:40 75 24 H 11/21/18 06:00 24 H Weight Admit Weight 137 lb Weight 150 lb 2.157 oz Most Recent Monitor Data Heart Rate from ECG 83 NIBP 108/84 NIBP BP-Mean 92 Respiration from ECG 16 SpO2 95 I&O: 11/20/18 11/21/18 11/22/18 06:59 06:59 06:59 Intake Total 644 1337 Output Total 0 0 Balance 644 1337 Result Diagrams: 11/21/18 04:28 11/21/18 04:28 Additional Labs: Accuchecks 11/21/18 11/21/18 11/21/18 10:39 04:28 00:31 POC Glucose 121 H 129 H 161 H 11/20/18 22:54 POC Glucose 60 L Hospitalist ROS - Medication Medications: Active Medications Generic Name Dose Route Start Last Admin Trade Name Freq PRN Reason Stop Dose Admin Albuterol Sulfate 2.5 mg 11/20/18 22:30 11/21/18 14:44 Ventolin NEB 2.5 mg [id number] INGRID Administration Dextrose/Water 25 gm 11/20/18 23:09 11/20/18 23:35 Dextrose 50% SLOW IVP 25 gm PRN PRN Administration Hypoglycemia Hydrocortisone Sodium Succinate 100 mg 11/20/18 22:00 11/21/18 14:00 Solu-Cortef IVP 100 mg Q8HR INGRID Administration Piperacillin Sod/Tazobactam 100 mls @ 200 mls/hr 11/20/18 09:00 11/21/18 10: 15 Sod 2.25 gm/ Sodium Chloride IVPB 100 mls Q12HR INGRID Administration Sodium Chloride 1,000 mls @ 100 mls/hr 11/20/18 19:15 11/21/18 10:16 Normal Saline 0.9% IV 1,000 mls .Q10H INGRID Administration Norepinephrine Bitartrate 8 mg 250 mls @ 0 mls/hr 11/21/18 07:16 11/21/18 07: 29 / Dextrose/Water IVPB 250 mls PRN PRN Administration Blood Pressure Protocol Titrate Propofol 1,000 mg 11/20/18 19:14 11/21/18 14:00 Diprivan IV 12/20/18 19:14 1,000 mg INF PRN Administration TO ACHIEVE GOAL RASS Protocol Sodium Chloride 10 ml 11/19/18 22:32 11/20/18 21:06 Flush - Normal Saline IVF 10 ml PRN PRN Administration Saline Flush - Exam Eye: PERRL Heart: RRR, no murmur, no gallops, no rubs, normal peripheral pulses Respiratory: CTAB, no wheezes, no rales, no ronchi, normal chest expansion Gastrointestinal: soft, normal bowel sounds, no palpable masses, no hepatomegaly , distended (mild distention) Extremities: no cyanosis, no clubbing, 1+ LE edema (trace pedal edema) Hosp A/P (1) Acute acalculous cholecystitis Code(s): K81.0 - ACUTE CHOLECYSTITIS Status: Acute (2) Moderate protein malnutrition Code(s): E44.0 - MODERATE PROTEIN-CALORIE MALNUTRITION Status: Chronic (3) ESRD (end stage renal disease) on dialysis Code(s): N18.6 - END STAGE RENAL DISEASE; Z99.2 - DEPENDENCE ON RENAL DIALYSIS Status: Chronic (4) Hypertension Code(s): I10 - ESSENTIAL (PRIMARY) HYPERTENSION Status: Chronic Qualifiers: (5) Systemic lupus erythematosus Code(s): M32.9 - SYSTEMIC LUPUS ERYTHEMATOSUS, UNSPECIFIED Status: Chronic - Plan * Acute acalculous cholecystitis- she is s/p lap -lisy * Hypotension- ? etiology- improved with pressors- continue to wean as tolerated * Elevated trop- Echo results noted- due to Type 2 NSTEMI * ESRD- with some volume overload- continue as per Nephrology * Respiratory failure- likely in part due to the volume overload * SLE- stable * Moderate malnutrition- this may complicate her recovery
[2018-11-21] MEDS: diphenhydrAMINE 50 MG/ML VIAL IVP PRN (17:37)
[2018-11-22] MEDS: Albuterol Sulfate 2.5 mg/3 ml Neb NEB SCH ×6 (02:03→22:31)
[2018-11-22 04:40] LABS: INR-International Normal Ratio 1.6; Prothrombin Time 18.6 SEC (12.0-14.7)
[2018-11-22 04:49] LABS: Anion Gap 22 mmol/L (10-20); BUN (Urea Nitrogen) 23 mg/dL (9.8-20.1); Calc. Creatinine Clearance 13 mL/min (70-130); Calcium 7.5 mg/dL (7.8-10.44); Carbon Dioxide 20 mmol/L (22-29); Chloride 100 mmol/L (98-107); Estimated GFR-MDRD 10; Glucose 108 mg/dL (70-105); Potassium 5.2 mmol/L (3.5-5.1); Sodium 137 mmol/L (136-145)
[2018-11-22 04:53] LABS: ALT (SGPT) 39 U/L (8-55); AST (SGOT) 69 U/L (5-34); Alkaline Phosphatase 80 U/L (40-110); Bilirubin, Direct 0.4 mg/dL (0.1-0.3); Protein, Total 6.2 g/dL (6.0-8.3)
[2018-11-22 05:38] LABS: Band 8 % (5-11); Hemoglobin 11.8 g/dL (12.0-16.0); Lymphocytes 4 % (21-51); MDiff Complete? YES; Mean Corpuscular Hemoglobin 29.1 pg (27.0-31.0); Mean Corpuscular Volume 88.2 fL (78.0-98.0); Mean Platelet Volume 8.7 fL (7.4-10.4); Monocytes 4 % (0-10); Neutrophil 84 % (42-75); Platelet Count 229 thou/uL (130-400); Platelet Morphology Comment Appears Adequate; RBC Distribution Width 14.8 % (11.5-14.5); Red Blood Cell (RBC) Count 4.07 mill/uL (4.20-5.40); White Blood Cell (WBC) Count 17.8 thou/uL (4.8-10.8)
[2018-11-22] MEDS: Propofol 1,000 MG/100 ML VIAL IV PRN (06:02)
[2018-11-22] MEDS: Hydrocortisone Sod Succ/PF 100 mg/2 ml Vial IVP SCH ×2 (06:02→13:16)
[2018-11-22 06:59] LABS: Actual Bicarbonate (HCO3a) 18.5 mEq/L (22-28); CO2 Tension 26.7 mmHg (35.0-45.0); Calcium, Ionized 0.92 mmol/L (1.12-1.30); Hemoglobin (Hb) 12.2 g/dL (12.0-16.0); O2 Tension (PaO2) 73.9 mmHg (80.0-100.0); Potassium - ABG Lab 4.56 mmol/L (3.70-5.30); pH, Arterial 7.46 (7.35-7.45)
[2018-11-22 07:04] LABS: ALV-art Gradient 177.925 (0-20); Puncture Site ALINE
[2018-11-22] MEDS: Piperacillin/Tazobactam 2.25 GM in Sodium Chloride 0.9% 100 ML IVPB SCH ×2 (08:25→21:40)
--- NOTE | 2018-11-22 09:59 | PRG ---
DATE OF SERVICE: 11/22/2018 35 minutes of critical care time. SUBJECTIVE: The patient remains intubated on mechanical ventilation. She is awake, alert, follows commands. OBJECTIVE: VITAL SIGNS: Temperature 97.0; pulse 85; blood pressure 112/90; O2 saturation, I think it is more difficult to picking tech than anything else because of her lupus, it is running in the 80s to 90s. A 24-hour intake 2137 output, 1500 by dialysis. HEENT: Unremarkable. NECK: No JVD. LUNGS: Fairly clear anteriorly. CARDIAC: S1 and S2, regular. ABDOMEN: Soft. EXTREMITIES: Edematous. LABORATORY DATA: White blood cell count 17.8, hematocrit 35.9, and platelet count 229. INR 1.6. PH 7.46, pCO2 of 26, pO2 of 73 on SIMV rate 8, tidal volume 450, PEEP 5, pressure support 14, FiO2 of 40%. Sodium 137, potassium 5.2, chloride 100, CO2 of 20, BUN 23, creatinine 5.5, and glucose 108. ASSESSMENT: 1. Acalculous cholecystitis, now status post cholecystectomy. 2. Systemic lupus erythematosus. 3. Postoperative respiratory failure, requiring mechanical ventilation. 4. Chronic renal failure, requiring hemodialysis. PLAN: 1. Extubate high-flow nasal cannula. 2. Could need more dialysis today. 3. Continue IV Zosyn. 4. We will follow closely. Job ID: [id number]
[2018-11-22] MEDS: diphenhydrAMINE 50 MG/ML VIAL IVP PRN ×2 (10:48→21:48)
--- NOTE | 2018-11-22 12:10 | PDOC.CPN ---
- Subjective Date: 11/22/18 Time: 12:08 Interval history: She is doing better. She is now extubated. No chest pain. Had HD yesterday. - Review of Systems General: denies: fever/chills, weight/appetite/sleep changes, night sweats, fatigue Respiratory: reports: cough, congestion. denies: shortness of breath, exercise intolerance Cardiovascular: denies: chest pain, palpitation, edema, paroxysmal nocturnal dyspnea, orthopnea Gastrointestinal: denies: nausea, vomiting, diarrhea, constipation, abd pain, GI bleeding Musculoskeletal: denies: pain, tenderness, stiffness, swelling, arthritis/ arthralgias Neurological: denies: numbness, syncope, seizure, weakness - Objective Allergies/Adverse Reactions: Allergies Allergy/AdvReac Type Severity Reaction Status Date / Time HUANG Inhibitors Allergy Verified 05/28/18 00:22 clonidine Allergy Verified 05/28/18 00:22 nitroglycerin Allergy Verified 05/28/18 00:22 Visit Medications: Current Medications Albuterol Sulfate (Ventolin) 2.5 mg NEB [id number] INGRID Last Admin: 11/22/18 11:04 Dose: 2.5 mg Albuterol/Ipratropium (Duoneb) 3 ml NEB Q4H PRN PRN Reason: SOB &/or Wheezing Dextrose/Water (Dextrose 50%) 25 gm SLOW IVP PRN PRN PRN Reason: Hypoglycemia Last Admin: 11/20/18 23:35 Dose: 25 gm Diphenhydramine HCl (Benadryl) 50 mg IVP Q8H PRN PRN Reason: Itching Last Admin: 11/22/18 10:48 Dose: 50 mg Glucagon (Glucagon) 1 mg IM PRN PRN PRN Reason: Hypoglycemia Hydrocortisone Sodium Succinate (Solu-Cortef) 100 mg IVP Q8HR IN[facility] Last Admin: 11/22/18 06:02 Dose: 100 mg Piperacillin Sod/Tazobactam (Sod 2.25 gm/ Sodium Chloride) 100 mls @ 200 mls/ hr IVPB Q12HR [facility] Last Admin: 11/22/18 08:25 Dose: 100 mls Piperacillin Sod/Tazobactam (Sod 0.75 gm/ Sodium Chloride) 50 mls @ 100 mls/hr IVPB WILLCALL INGRID Sodium Chloride (Normal Saline 0.9%) 1,000 mls @ 0 mls/hr IV .Q0M INGRID Last Admin: 11/21/18 10:16 Dose: 1,000 mls Fentanyl Citrate 2,000 mcg/ (Sodium Chloride) 100 mls @ 0 mls/hr IV INF INGRID; Protocol Stop: 12/20/18 19:14 Fentanyl Citrate (Fentanyl Bolus) 250 mls @ 0 mls/hr IVPB PRN PRN PRN Reason: Breakthrough pain/agitation Stop: 12/20/18 19:14 Dextrose/Water (D5w) 1,000 mls @ 0 mls/hr IV .Q0M PRN PRN Reason: Hypoglycemia Norepinephrine Bitartrate 8 mg (/ Dextrose/Water) 250 mls @ 0 mls/hr IVPB PRN PRN; Protocol PRN Reason: Blood Pressure Last Admin: 11/21/18 20:53 Dose: 250 mls Lorazepam (Ativan) 2 mg SLOW IVP Q1H PRN PRN Reason: Breakthrough agitation Stop: 12/20/18 19:14 Mineral Oil/White Petrolatum (Systane Nighttime Eye Ointment) 0 gm EA EYE PRN PRN PRN Reason: Dry Eyes Miscellaneous Medication (Pharmacy To Dose) 1 each IVPB PRN PRN PRN Reason: Pharmacy to dose Morphine Sulfate (Morphine) 2 mg SLOW IVP Q1H PRN PRN Reason: BREAKTHROUGH PAIN/Agitation Stop: 12/20/18 19:14 Discontinue Previous Narcotic Pain Medications And Benzodiazepines 1 each FS .ONE INGRID Stop: 12/20/18 19:14 Propofol (Diprivan) 1,000 mg IV INF PRN; Protocol PRN Reason: TO ACHIEVE GOAL RASS Stop: 12/20/18 19:14 Last Admin: 11/22/18 06:02 Dose: 1,000 mg Propofol (Diprivan Bolus) 20 mg IV Q5MIN PRN PRN Reason: BREAKTHROUGH AGITATION Stop: 12/20/18 19:14 Sodium Chloride (Flush - Normal Saline) 10 ml IVF PRN PRN PRN Reason: Saline Flush Last Admin: 11/20/18 21:06 Dose: 10 ml Sodium Chloride (Normal Saline Pf) 10 ml FS PRN PRN PRN Reason: RECONSTITUTION Vital Signs & Weight: Vital Signs Temp Pulse Resp BP Pulse Ox 11/22/18 11:04 90 22 H 11/22/18 09:31 90 22 H 99 09/29/19 07:00 98 F 11/22/18 06:42 85 102/74 11/22/18 06:41 84 18 11/22/18 06:00 19 11/22/18 04:00 97.0 F L 14 11/22/18 02:05 83 11/22/18 02:03 83 15 11/22/18 02:00 14 Admit Weight 137 lb Weight 145 lb 8.081 oz - Physical Exam General: alert & oriented x3 HEENT: mucus membranes moist, normocephaly Neck: supple neck Cardiac: regular rate and rhythm, no murmur Lungs: clear to auscultation, bibasilar rales Neuro: grossly intact, coordination normal Abdomen: active bowel sounds, soft, non-tender Skin: clear Musculoskeletal: normal range of motion - Labs Result Diagrams: 11/22/18 04:00 11/22/18 04:00 Troponin/CKMB CK-MB (CK-2) 3.5 ng/mL (0-6.6) 11/21/18 04:28 Troponin I 0.886 ng/mL (< 0.028) H* 11/21/18 04:28 - Telemetry Sinus rhythms and dysrhythmias: sinus rhythm - Assessment/Plan Assessment/Plan: 1, Hypotension post op. 2. Volume overload. 3. Severe pulmonary HTN 4. ESRD. 5. Acalculous cholecystitis, S/P Lap lisy 6. Type 2 [place], demand ischemia. PLAnN: - Still volume up, needs more fluid off through HD. - Likely her troponin bump is related to her ESRD and volume overload. No plan for intervention at this time. Will need ischemic work up as outpatient when acute setting resolved.
--- NOTE | 2018-11-22 14:29 | PDOC.HOSPP ---
- Subjective Encounter Date: 11/22/18 Encounter Time: 14:27 Subjective: Reports feeling cold. No other specific complaints. No abdominal pain. - Objective Vital Signs & Weight: Vital Signs (12 hours) Temp Pulse Resp BP Pulse Ox 11/22/18 11:04 90 22 H 11/22/18 09:31 90 22 H 99 11/22/18 07:00 98 F 11/22/18 06:42 85 102/74 11/22/18 06:41 84 18 11/22/18 06:00 19 11/22/18 04:00 97.0 F L 14 Weight Admit Weight 137 lb Weight 145 lb 8.081 oz Most Recent Monitor Data Heart Rate from ECG 83 NIBP 83/70 NIBP BP-Mean 74 Respiration from ECG 32 SpO2 84 I&O: 11/21/18 11/22/18 11/23/18 06:59 06:59 06:59 Intake Total 1337 2137.1 0 Output Total 0 0 0 Balance 1337 2137.1 0 Result Diagrams: 11/22/18 04:00 11/22/18 04:00 Additional Labs: Accuchecks 11/22/18 11/22/18 11/21/18 10:11 04:03 22:33 POC Glucose 110 119 H 108 11/21/18 11/21/18 18:36 10:39 POC Glucose 100 121 H Hospitalist ROS - Medication Medications: Active Medications Generic Name Dose Route Start Last Admin Trade Name Freq PRN Reason Stop Dose Admin Albuterol Sulfate 2.5 mg 11/20/18 22:30 11/22/18 11:04 Ventolin NEB 2.5 mg [id number] INGRID Administration Dextrose/Water 25 gm 11/20/18 23:09 11/20/18 23:35 Dextrose 50% SLOW IVP 25 gm PRN PRN Administration Hypoglycemia Diphenhydramine HCl 50 mg 11/21/18 17:05 11/22/18 10:48 Benadryl IVP 50 mg Q8H PRN Administration Itching Hydrocortisone Sodium Succinate 100 mg 11/20/18 22:00 11/22/18 13:16 Solu-Cortef IVP 100 mg Q8HR INGRID Administration Piperacillin Sod/Tazobactam 100 mls @ 200 mls/hr 11/20/18 09:00 11/22/18 08: 25 Sod 2.25 gm/ Sodium Chloride IVPB 100 mls Q12HR INGRID Administration Sodium Chloride 1,000 mls @ 0 mls/hr 11/20/18 19:15 11/21/18 10:16 Normal Saline 0.9% IV 1,000 mls .Q0M INGRID Administration KVO Norepinephrine Bitartrate 8 mg 250 mls @ 0 mls/hr 11/21/18 07:16 11/21/18 20: 53 / Dextrose/Water IVPB 250 mls PRN PRN Administration Blood Pressure Protocol Titrate Propofol 1,000 mg 11/20/18 19:14 11/22/18 06:02 Diprivan IV 12/20/18 19:14 1,000 mg INF PRN Administration TO ACHIEVE GOAL RASS Protocol Sodium Chloride 10 ml 11/19/18 22:32 11/20/18 21:06 Flush - Normal Saline IVF 10 ml PRN PRN Administration Saline Flush - Exam General Appearance: NAD, awake alert Heart: RRR, murmur present, II/IV Respiratory: CTAB, no wheezes, no rales, no ronchi, normal chest expansion, no tachypnea, normal percussion Gastrointestinal: soft, non-tender, non-distended, no palpable masses Skin: normal turgor Psychiatric - other findings: appears a little confused Hosp A/P (1) Hypotension Status: Acute (2) Acute acalculous cholecystitis Code(s): K81.0 - ACUTE CHOLECYSTITIS Status: Acute (3) Volume overload Code(s): E87.70 - FLUID OVERLOAD, UNSPECIFIED Status: Acute (4) Anemia of renal disease Code(s): D63.1 - ANEMIA IN CHRONIC KIDNEY DISEASE Status: Chronic (5) Dyslipidemia Code(s): E78.5 - HYPERLIPIDEMIA, UNSPECIFIED Status: Chronic (6) ESRD (end stage renal disease) on dialysis Code(s): N18.6 - END STAGE RENAL DISEASE; Z99.2 - DEPENDENCE ON RENAL DIALYSIS Status: Chronic (7) Hypertension Code(s): I10 - ESSENTIAL (PRIMARY) HYPERTENSION Status: Chronic Qualifiers: (8) Nephrotic syndrome Code(s): N04.9 - NEPHROTIC SYNDROME WITH UNSPECIFIED MORPHOLOGIC CHANGES Status: Chronic (9) Secondary hyperparathyroidism of renal origin Code(s): N25.81 - SECONDARY HYPERPARATHYROIDISM OF RENAL ORIGIN Status: Chronic (10) Systemic lupus erythematosus Code(s): M32.9 - SYSTEMIC LUPUS ERYTHEMATOSUS, UNSPECIFIED Status: Chronic (11) Hyperkalemia Code(s): E87.5 - HYPERKALEMIA Status: Acute - Plan Pulm CC following. Extubated today. Cards following. Suspects she needs some additional fluid removal. Nephrology following. Mild hyperkalemia. Surg following. IV abx to cover for possible sepsis given the cholecysitis and the hypotension. Continue solucortef for hypotension as well.
--- NOTE | 2018-11-22 15:03 | PRG ---
DATE OF SERVICE: 11/22/2018 SUBJECTIVE: A 53-year-old female, being seen for end-stage kidney disease. The patient denies any nausea, vomiting, or chest pain. OBJECTIVE: CONSTITUTIONAL: The patient is awake and alert. VITAL SIGNS: Afebrile, pulse 75, breathing 16, and blood pressure 94/69. GENERAL APPEARANCE AND MENTAL STATUS: Fair. HEAD/NECK: Normocephalic. Atraumatic. EYES: EOMI. No deformity. EARS: Clear. No ulcers. NOSE: Intact. No lesions. MOUTH: Clear. No discharge. THROAT: Clear. No exudate. LUNGS: Clear. No crackles. CARDIAC: S1, S2. No rub. ABDOMEN: Benign. Bowel sounds positive. GENITALIA/RECTUM: Devries absent. BACK/EXTREMITIES: Edema 0+. NEUROLOGICAL: Alert and motor intact. SKIN: LYMPHATICS: LABORATORY DATA: Reviewed. ASSESSMENT AND PLAN: 1. Stage 6 chronic kidney disease, stable. 2. Hypertension, stable. 3. Anemia, stable. Job ID: [id number]
[2018-11-22 15:50] LABS: Anion Gap 25 mmol/L (10-20); BUN (Urea Nitrogen) 29 mg/dL (9.8-20.1); Calc. Creatinine Clearance 11 mL/min (70-130); Calcium 7.6 mg/dL (7.8-10.44); Carbon Dioxide 18 mmol/L (22-29); Chloride 99 mmol/L (98-107); Estimated GFR-MDRD 9; Glucose 117 mg/dL (70-105); Potassium 5.1 mmol/L (3.5-5.1); Sodium 137 mmol/L (136-145)
[2018-11-22] MEDS ORDERED: traMADol HCl 50 MG TAB PO PRN (16:13)
[2018-11-22] MEDS ORDERED: Acetaminophen 500 MG TAB PO PRN (16:13)
[2018-11-22] MEDS: Morphine 2 MG/ML SYRINGE SLOW IVP PRN (16:33)
--- NOTE | 2018-11-22 17:05 | PRG ---
DATE OF SERVICE: 11/22/2018 SUBJECTIVE: Vivian Bearden is doing well today. She is extubated this morning. She is awake and alert. She is hungry. She has been started on clear liquids. I will order a renal diet. She has some oozing from her laparoscopic incision site, and at the bedside, I cleaned it with alcohol and placed a 4-0 [id number] suture to control it. Overall, she is doing well. Her white count is 17, hemoglobin 11.8. Her liver function tests are normal. OBJECTIVE: LUNGS: Clear to auscultation. CARDIAC: Regular rate and rhythm without murmur or gallop. ABDOMEN: Soft, nontender. ASSESSMENT AND PLAN: Overall, she is doing well. I would recommend advancing her diet. Saline lock her. Increase mobility. She is on low-dose Levophed. Once this weaned off, she hopefully will be transferred to the floor tomorrow. Job ID: [id number]
[2018-11-22] MEDS ORDERED: Hydrocortisone Sod Succ/PF 100 mg/2 ml Vial IVP SCH (21:00)
[2018-11-23] MEDS: Morphine 2 MG/ML SYRINGE SLOW IVP PRN (00:55)
[2018-11-23] MEDS: Albuterol Sulfate 2.5 mg/3 ml Neb NEB SCH ×6 (02:29→22:17)
[2018-11-23 04:34] LABS: #Eosinphils 0.1 thou/uL (0.0-0.7); #Lymphocytes 1.3 thou/uL (1.20-3.40); #Monocytes 1.1 thou/uL (0.11-0.59); #Neutrophils 15.6 thou/uL (1.40-6.50); %Basophils 0.1 % (0.0-1.0); %Eosinophils 0.3 % (0.0-10.0); %Monocytes 6.2 % (0.0-10.0); %Neutrophils 86.4 % (42.0-75.0); Hemoglobin 12.8 g/dL (12.0-16.0); Mean Corpuscular HGB CONC 32.5 g/dL (32.0-36.0); Mean Corpuscular Hemoglobin 29.4 pg (27.0-31.0); Mean Corpuscular Volume 90.2 fL (78.0-98.0); Mean Platelet Volume 8.5 fL (7.4-10.4); Platelet Count 208 thou/uL (130-400); RBC Distribution Width 15.1 % (11.5-14.5); Red Blood Cell (RBC) Count 4.36 mill/uL (4.20-5.40); White Blood Cell (WBC) Count 18.1 thou/uL (4.8-10.8)
[2018-11-23 04:49] LABS: Anion Gap 22 mmol/L (10-20); BUN (Urea Nitrogen) 36 mg/dL (9.8-20.1); Calc. Creatinine Clearance 10 mL/min (70-130); Calcium 7.5 mg/dL (7.8-10.44); Carbon Dioxide 22 mmol/L (22-29); Chloride 100 mmol/L (98-107); Estimated GFR-MDRD 8; Glucose 142 mg/dL (70-105); Potassium 4.8 mmol/L (3.5-5.1); Sodium 139 mmol/L (136-145)
[2018-11-23] MEDS ORDERED: Diabetic Tussin 200 MG/10 ML UDCUP PO PRN (07:47)
[2018-11-23] MEDS ORDERED: Ondansetron ODT 4 MG TAB PO PRN (07:47)
[2018-11-23] MEDS ORDERED: Cepastat Lozenges 1 LOZ PO PRN (07:47)
[2018-11-23] MEDS ORDERED: Bisacodyl 10 MG SUPP PR PRN (07:47)
[2018-11-23] MEDS ORDERED: HYDROcodone/Acetaminophen 5/325 mg Tablet PO PRN (07:47)
[2018-11-23] MEDS ORDERED: Senokot S 8.6-50 MG TAB PO PRN (07:47)
[2018-11-23] MEDS ORDERED: Artificial Tears 18 DROP/0.9 ML EA EYE PRN (07:47)
[2018-11-23] MEDS ORDERED: Ondansetron PF 4 MG/2 ML Vial IVP PRN (07:47)
[2018-11-23] MEDS ORDERED: Calcium Carbonate 500 MG ChewTAB PO PRN (07:47)
[2018-11-23] MEDS ORDERED: Sodium Chloride 0.65% Nasal 44 ML BOT EA NARE PRN (07:47)
[2018-11-23] MEDS ORDERED: Loratadine 10 MG TAB PO PRN (07:47)
[2018-11-23] MEDS ORDERED: Loperamide HCl 2 MG CAP PO PRN (07:47)
[2018-11-23] MEDS ORDERED: hydrALAZINE 20 MG/ML VIAL SLOW IVP PRN (07:47)
[2018-11-23] MEDS: Piperacillin/Tazobactam 2.25 GM in Sodium Chloride 0.9% 100 ML IVPB SCH ×2 (07:57→21:57)
[2018-11-23] MEDS: predniSONE 5 MG TAB PO SCH (07:58)
[2018-11-23] MEDS: Polyethylene Glycol 3350 17 GM Packet PO SCH (07:58)
--- NOTE | 2018-11-23 09:33 | PRG ---
DATE OF SERVICE: 11/23/2018 SUBJECTIVE: She was successfully extubated yesterday, looks reasonably well today. Has no acute complaints. OBJECTIVE: VITAL SIGNS: Temperature is 98.1, pulse 77, blood pressure 110/81. A 24-hour intake 1584, output 0. HEENT: Unremarkable. NECK: No JVD. CHEST: Clear to auscultation. CARDIAC: S1 and S2. Regular. ABDOMEN: Soft, nontender to palpation. EXTREMITIES: No edema. LABORATORY DATA: Sodium 139, potassium 4.8, chloride 100, CO2 of 22, BUN 36, creatinine 6.9, and glucose 142. White blood cell count 18.1, hematocrit 39.3, and platelet count 208. ASSESSMENT: 1. Acalculous cholecystitis. 2. Status post cholecystectomy. 3. Resolving sepsis. 4. Chronic renal failure. 5. Lupus. PLAN: The arterial line will be discontinued. I will go ahead and stop the hydrocortisone as the patient is chronically on prednisone. The patient can be transferred out to the telemetry unit. Job ID: [id number]
--- NOTE | 2018-11-23 10:48 | PRG ---
DATE OF SERVICE: 11/23/2018 SUBJECTIVE: Patient was seen and examined at bedside and overnight events noted. Patient denies any shortness of breath or chest pain or palpitation. No history of nausea or vomiting or diarrhea or fever or chills or cramps. OBJECTIVE: GENERAL: This is a well-built female, in no apparent distress. VITAL SIGNS: Temperature 98.1. Heart rate 80. Respiratory rate 20. Blood pressure 88/64. HEENT: Atraumatic, normocephalic. Oral mucosa is moist NECK: Supple. CARDIOVASCULAR: S1, S2 heard. Rate and rhythm regular. RESPIRATORY: Clear to auscultation. GASTROINTESTINAL: Abdomen is soft. MUSCULOSKELETAL: No tenderness. No edema. DERMATOLOGIC: No skin rash. NEUROLOGIC: Alert and awake and oriented X3. No focal neurologic deficits. Moving all the extremities. PSYCHIATRIC: Mood and affect normal. LABORATORY DATA: Potassium 4.8, BUN is 36, creatinine 6.9. ASSESSMENT AND PLAN: 1. End-stage renal disease. Plan is to have dialysis, but her access is clotted. We will have Surgery consult. The patient is also interested in PD, so it might be a good idea to put a PD catheter also if she can tolerate. 2. Cardiorenal syndrome. Follow with Cardiology. 3. Hypotension. 4. Anemia. 5. Edema, controlled. Prognosis is guarded. The patient is currently on Levophed. Follow with Cardiology. We will follow. Job ID: [id number]
--- NOTE | 2018-11-23 10:56 | PDOC.HOSPP ---
- Subjective Encounter Date: 11/23/18 Encounter Time: :30 Subjective: Patient seen and examined. No new complaints. No overnight events today dialysis was not able to do as her access was not working - Objective Vital Signs & Weight: Vital Signs (12 hours) Temp Pulse Resp Pulse Ox 11/23/18 07:07 95 11/23/18 07:01 97 11/23/18 07:00 98.1 F 11/23/18 06:59 79 15 97 11/23/18 02:29 85 21 H 98 Weight Admit Weight 137 lb Weight 146 lb 2.664 oz Most Recent Monitor Data Heart Rate from ECG 80 NIBP 81/61 NIBP BP-Mean 67 Respiration from ECG 24 SpO2 85 I&O: 11/22/18 11/23/18 11/24/18 06:59 06:59 06:59 Intake Total 2137.1 1584.2 540 Output Total 0 0 0 Balance 2137.1 1584.2 540 Result Diagrams: 11/23/18 04:00 11/23/18 04:00 Additional Labs: Accuchecks 11/23/18 11/23/18 11/22/18 10:15 01:36 22:35 POC Glucose 132 H 127 H 168 H EKG Reviewed by me: Yes Hospitalist ROS - Review of Systems ENT: denies: ear pain, ear discharge, nose pain, nose discharge, nose congestion , mouth pain, mouth swelling, throat pain, throat swelling, other Respiratory: denies: cough, dry, shortness of breath, hemoptysis, SOB with excertion, pleuritic pain, sputum, wheezing, other Cardiovascular: denies: chest pain, palpitations, orthopnea, paroxysmal noc. dyspnea, edema, light headedness, other Gastrointestinal: denies: nausea, vomiting, abdominal pain, diarrhea, constipation, melena, hematochezia, other Genitourinary: denies: dysuria, frequency, incontinence, hematuria, retention, other Musculoskeletal: denies: neck pain, shoulder pain, arm pain, back pain, hand pain, leg pain, foot pain, other - Medication Medications: Active Medications Generic Name Dose Route Start Last Admin Trade Name Freq PRN Reason Stop Dose Admin Albuterol Sulfate 2.5 mg 11/20/18 22:30 11/23/18 07:04 Ventolin NEB Not Given [id number] INGRID Albuterol/Ipratropium 3 ml 11/19/18 22:35 11/23/18 06:59 Duoneb NEB 3 ml Q4H PRN Administration SOB &/or Wheezing Dextrose/Water 25 gm 11/20/18 23:09 11/20/18 23:35 Dextrose 50% SLOW IVP 25 gm PRN PRN Administration Hypoglycemia Diphenhydramine HCl 50 mg 11/21/18 17:05 11/22/18 21:48 Benadryl IVP 50 mg Q8H PRN Administration Itching Piperacillin Sod/Tazobactam 100 mls @ 200 mls/hr 11/20/18 09:00 11/23/18 07: 57 Sod 2.25 gm/ Sodium Chloride IVPB 100 mls Q12HR INGRID Administration Sodium Chloride 1,000 mls @ 0 mls/hr 11/20/18 19:15 11/21/18 10:16 Normal Saline 0.9% IV 1,000 mls .Q0M INGRID Administration KVO Morphine Sulfate 2 mg 11/20/18 19:14 11/23/18 00:55 Morphine SLOW IVP 12/20/18 19:14 2 mg Q1H PRN Administration BREAKTHROUGH PAIN/Agitation Polyethylene Glycol 17 gm 11/23/18 09:00 11/23/18 07:58 Miralax PO Not Given DAILY INGRID Prednisone 5 mg 11/23/18 09:00 11/23/18 07:58 Prednisone PO 5 mg DAILY INGRID Administration Sodium Chloride 10 ml 11/19/18 22:32 11/20/18 21:06 Flush - Normal Saline IVF 10 ml PRN PRN Administration Saline Flush - Exam General Appearance: NAD, awake alert Eye: PERRL, anicteric sclera ENT: normocephalic atraumatic, no oropharyngeal lesions Neck: supple, symmetric, no JVD, no thyromegaly Heart: RRR, no murmur, no gallops, no rubs Respiratory: CTAB, no wheezes, no rales, no ronchi Gastrointestinal: soft, non-tender, non-distended, normal bowel sounds Extremities: no cyanosis, no clubbing Extremities - other findings: left groin central line Skin: normal turgor, no lesions Neurological: cranial nerve grossly intact, no focal deficits Musculoskeletal: normal tone, normal strength Psychiatric: normal affect, normal behavior Hosp A/P (1) Acute acalculous cholecystitis Code(s): K81.0 - ACUTE CHOLECYSTITIS Status: Acute Plan: s/p lap lisy (2) Dialysis AV fistula malfunction Code(s): T82.590A - [facility] COMPL OF SURGICALLY CREATED ARTERIOVENOUS FISTULA, INIT Status: Acute (3) Anemia of renal disease Code(s): D63.1 - ANEMIA IN CHRONIC KIDNEY DISEASE Status: Chronic (4) CVA, old, dysarthria Code(s): I69.322 - DYSARTHRIA FOLLOWING CEREBRAL INFARCTION Status: Chronic (5) Dyslipidemia Code(s): E78.5 - HYPERLIPIDEMIA, UNSPECIFIED Status: Chronic (6) ESRD (end stage renal disease) on dialysis Code(s): N18.6 - END STAGE RENAL DISEASE; Z99.2 - DEPENDENCE ON RENAL DIALYSIS Status: Chronic (7) Hypertension Code(s): I10 - ESSENTIAL (PRIMARY) HYPERTENSION Status: Chronic Qualifiers: (8) Hypoalbuminemia Code(s): E88.09 - [facility] DISORDERS OF PLASMA-PROTEIN METABOLISM, NEC Status: Chronic (9) Nephrotic syndrome Code(s): N04.9 - NEPHROTIC SYNDROME WITH UNSPECIFIED MORPHOLOGIC CHANGES Status: Chronic (10) Noncompliance with medication regimen Code(s): Z91.14 - PATIENT'S OTHER NONCOMPLIANCE WITH MEDICATION REGIMEN Status : Chronic (11) Secondary hyperparathyroidism of renal origin Code(s): N25.81 - SECONDARY HYPERPARATHYROIDISM OF RENAL ORIGIN Status: Chronic (12) Systemic lupus erythematosus Code(s): M32.9 - SYSTEMIC LUPUS ERYTHEMATOSUS, UNSPECIFIED Status: Chronic (13) Hypotension Status: Resolved (14) Moderate protein malnutrition Code(s): E44.0 - MODERATE PROTEIN-CALORIE MALNUTRITION Status: Chronic - Plan old records reviewed/req, continue antibiotics 11/23/18- today fistula study and then dr bonds will consider surgery if needed , continue zosyn, now BP has improved, medication reviewed as above, symptomatic treatment, close monitoring
[2018-11-23] MEDS: diphenhydrAMINE 50 MG/ML VIAL IVP PRN ×2 (11:02→18:09)
--- NOTE | 2018-11-23 14:56 | PRG ---
DATE OF SERVICE: 11/23/2018 SUBJECTIVE: Ms. Bearden's pressure dropped in the 70s. She was started back on Levophed for MAP. She has now pressures in the 90s. She is awake and communicative. Heart rate 80. Her fistula in left arm is thrombosed. I have been asked by Dr. Gonzalez to see her that the patient is interested in peritoneal dialysis; however, she is hemodynamically unstable and not fit for general anesthetic and that would not be appropriate at this time. That will have to be discussed at a later time. She will need cardiac clearance for a general anesthetic for a laparoscopic peritoneal dialysis catheter, and we will not plan it at this time. OBJECTIVE: LUNGS: Clear to auscultation. CARDIAC: Regular rate and rhythm. No murmur or gallop. ABDOMEN: Soft. Postoperative tenderness. She is tolerating her diet. LABORATORY DATA: White count 18, hemoglobin 12. Chemistries are unremarkable, except for consistent with renal failure. ASSESSMENT: Postoperative hypotension, continued. Her blood counts remain stable. There are no signs of bleeding. This probably is cardiovascular-mediated. Echocardiogram, 11/21/2018, ejection fraction 50%-55%, diastolic dysfunction, aortic valve sclerosis, small pericardial effusion, severe tricuspid regurgitation, marked enlarged right atriums, severe right ventricular dilatation with right ventricular systolic dysfunction, apical hypokinesis. Dr. Zelaya was following her. PLAN: Fistulogram when she is hemodynamically stable and her blood pressure is sustained enough to keep the fistula patent. Job ID: [id number]
--- NOTE | 2018-11-23 15:24 | PQF ---
CLINICAL DOCUMENTATION IMPROVEMENT CLARIFICATION FORM: ICD-10 Updated PLEASE DO AN ADDENDUM TO THE PROGRESS NOTE WITH ANY DOCUMENTATION UPDATES OR ADDITIONS AND CARRY THROUGH TO DC SUMMARY. THANK YOU. DATE: 11/23/18 ATTN: DR. SULLIVAN Please exercise your independent, professional judgment in responding to the clarification form. Clinical indicators are provided on the bottom of this form for your review Please check appropriate box(s) to clarify if the following diagnosis has been ruled in or ruled out: "SEPSIS" [ x ] Ruled in diagnosis [x ] Continue to treat [ ] Resolved [ ] Ruled out diagnosis [ ] Cannot rule out diagnosis [ ] Other diagnosis [ ] Unable to determine In addition, please specify: Present on Admission (POA): [x ] Yes [ ] No [ ] Unable to determine For continuity of documentation, please document condition throughout progress notes and discharge summary. Thank You. CLINICAL INDICATORS - SIGNS / SYMPTOMS / LABS ER NOTE (11/19): BP 73/63 RR 28 H&P 11/19: "HYPONATREMIA OF UNCLEAR ETIOLOGY. POSSIBILITIES INCLUDE DEHYDRATION FROM NAUSEA VERSUS SEPSIS." OP NOTE 11/20 (ARUN): "INTRAOPERATIVE HYPOTENSION REQUIRING LEVOPHED DRIP." WBC 11/21: 11.7 WBC 11/22: 17.8 WBC 11/23: 18.1 LACTIC ACID 11/19: 3.6 RISKS: CHOLECYSTITIS ( PROGRESS NOTE 11/20) H/O LUPUS (H&P 11/19) TREATMENT: IV VANCOMYCIN (ER 11/19) IV ZOSYN (ER-PRESENT) LEVOPHED (STARTED IN OR 11/20-11/21) CRITICAL CARE MONITORING (This form is maintained as a part of the permanent medical record) 2014 [employer] All Rights Reserved [email or web address] [email or web address] Office: [phone] [facility]
--- NOTE | 2018-11-23 15:56 | PDOC.CPN ---
- Subjective Date: 11/23/18 Time: 15:42 Interval history: She denies any chest pain, tightness ,pressure. - Review of Systems General: denies: fever/chills, weight/appetite/sleep changes, night sweats, fatigue Respiratory: denies: cough, congestion, shortness of breath, exercise intolerance Cardiovascular: denies: chest pain, palpitation, edema, paroxysmal nocturnal dyspnea, orthopnea Gastrointestinal: denies: nausea, vomiting, diarrhea, constipation, abd pain, GI bleeding Musculoskeletal: denies: pain, tenderness, stiffness, swelling, arthritis/ arthralgias Neurological: denies: numbness, syncope, seizure, weakness - Objective Allergies/Adverse Reactions: Allergies Allergy/AdvReac Type Severity Reaction Status Date / Time HUANG Inhibitors Allergy Verified 05/28/18 00:22 clonidine Allergy Verified 05/28/18 00:22 nitroglycerin Allergy Verified 05/28/18 00:22 Visit Medications: Current Medications Acetaminophen (Tylenol) 1,000 mg PO Q6H PRN PRN Reason: Moderate to Severe Pain (6-10) Hydrocodone Bitart/Acetaminophen ([place] 5/325) 1 tab PO Q4H PRN PRN Reason: Moderate Pain (4-6) Albuterol Sulfate (Ventolin) 2.5 mg NEB [id number] INGRID Last Admin: 11/23/18 14:55 Dose: 2.5 mg Albuterol/Ipratropium (Duoneb) 3 ml NEB Q4H PRN PRN Reason: SOB &/or Wheezing Last Admin: 11/23/18 06:59 Dose: 3 ml Artificial Tears (Tears Naturale) 2 drop EA EYE PRN PRN PRN Reason: Dry Eyes Bisacodyl (Dulcolax) 10 mg PA DAILYPRN PRN PRN Reason: Constipation Calcium Carbonate (Tums) 1,000 mg PO Q4H PRN PRN Reason: Heartburn or Indigestion Dextrose/Water (Dextrose 50%) 25 gm SLOW IVP PRN PRN PRN Reason: Hypoglycemia Last Admin: 11/20/18 23:35 Dose: 25 gm Diphenhydramine HCl (Benadryl) 50 mg IVP Q8H PRN PRN Reason: Itching Last Admin: 11/23/18 11:02 Dose: 50 mg Glucagon (Glucagon) 1 mg IM PRN PRN PRN Reason: Hypoglycemia Guaifenesin (Robitussin Sf) 200 mg PO Q4H PRN PRN Reason: Cough Hydralazine HCl (Apresoline) 10 mg SLOW IVP Q4H PRN PRN Reason: SBP > 180 and HR < 70 Piperacillin Sod/Tazobactam (Sod 2.25 gm/ Sodium Chloride) 100 mls @ 200 mls/ hr IVPB Q12HR [facility] Last Admin: 11/23/18 07:57 Dose: 100 mls Sodium Chloride (Normal Saline 0.9%) 1,000 mls @ 0 mls/hr IV .Q0M INGRID Last Admin: 11/21/18 10:16 Dose: 1,000 mls Fentanyl Citrate 2,000 mcg/ (Sodium Chloride) 100 mls @ 0 mls/hr IV INF INGRID; Protocol Stop: 12/20/18 19:14 Fentanyl Citrate (Fentanyl Bolus) 250 mls @ 0 mls/hr IVPB PRN PRN PRN Reason: Breakthrough pain/agitation Stop: 12/20/18 19:14 Dextrose/Water (D5w) 1,000 mls @ 0 mls/hr IV .Q0M PRN PRN Reason: Hypoglycemia Loperamide HCl (Imodium) 2 mg PO PRN PRN PRN Reason: Diarrhea/Loose Stools Loratadine (Claritin) 10 mg PO DAILYPRN PRN PRN Reason: Sinus Symptoms Lorazepam (Ativan) 2 mg SLOW IVP Q1H PRN PRN Reason: Breakthrough agitation Stop: 12/20/18 19:14 Mineral Oil/White Petrolatum (Systane Nighttime Eye Ointment) 0 gm EA EYE PRN PRN PRN Reason: Dry Eyes Miscellaneous Medication (Pharmacy To Dose) 1 each IVPB PRN PRN PRN Reason: Pharmacy to dose Morphine Sulfate (Morphine) 2 mg SLOW IVP Q1H PRN PRN Reason: BREAKTHROUGH PAIN/Agitation Stop: 12/20/18 19:14 Last Admin: 11/23/18 00:55 Dose: 2 mg Discontinue Previous Narcotic Pain Medications And Benzodiazepines 1 each FS .ONE [facility] Stop: 12/20/18 19:14 Ondansetron HCl (Zofran Odt) 4 mg PO Q6H PRN PRN Reason: Nausea/Vomiting Ondansetron HCl (Zofran) 4 mg IVP Q6H PRN PRN Reason: Nausea/Vomiting Polyethylene Glycol (Miralax) 17 gm PO DAILY [facility] Last Admin: 11/23/18 07:58 Dose: Not Given Prednisone (Prednisone) 5 mg PO DAILY [facility] Last Admin: 11/23/18 07:58 Dose: 5 mg Senna/Docusate Sodium (Senokot S) 2 tab PO BID PRN PRN Reason: Constipation Sodium Chloride (Flush - Normal Saline) 10 ml IVF PRN PRN PRN Reason: Saline Flush Last Admin: 11/20/18 21:06 Dose: 10 ml Sodium Chloride (Normal Saline Pf) 10 ml FS PRN PRN PRN Reason: RECONSTITUTION Sodium Chloride ([place] Nasal [place] 0.65%) 0 ml EA NARE QIDPRN PRN PRN Reason: Nasal Congestion Throat Lozenges (Cepastat Lozenges) 1 wilber PO Q2H PRN PRN Reason: Sore Throat Tramadol HCl (Ultram) 50 mg PO Q4H PRN PRN Reason: Pain 1-5 Vital Signs & Weight: Vital Signs Temp Pulse Resp Pulse Ox 11/23/18 14:55 79 18 93 L 11/23/18 14:46 98.0 F 11/23/18 11:31 86 14 98 11/23/18 07:07 95 11/23/18 07:01 97 11/23/18 07:00 98.1 F 11/23/18 06:59 79 15 97 Admit Weight 137 lb Weight 146 lb 2.664 oz - Physical Exam General: alert & oriented x3 HEENT: mucus membranes moist Neck: supple neck Cardiac: regular rate and rhythm Lungs: clear to auscultation Neuro: grossly intact Abdomen: active bowel sounds Skin: clear Musculoskeletal: no pain - Labs Result Diagrams: 11/23/18 04:00 11/23/18 04:00 Troponin/CKMB CK-MB (CK-2) 3.5 ng/mL (0-6.6) 11/21/18 04:28 Troponin I 0.886 ng/mL (< 0.028) H* 11/21/18 04:28 - Telemetry Sinus rhythms and dysrhythmias: sinus rhythm - Assessment/Plan Assessment/Plan: 1, Hypotension post op. 2. Volume overload. 3. Severe pulmonary HTN 4. ESRD. 5. Acalculous cholecystitis, S/P Lap lisy 6. Type 2 NH, demand ischemia. PLAN: - Still volume up, needs more fluid off through HD. - Likely her troponin bump is related to her ESRD and volume overload. No plan for intervention at this time. - Will need ischemic work up as outpatient when acute setting resolved. - Pressors as needed for low BP.
[2018-11-23] MEDS ORDERED: Norepinephrine 8 MG in Dextrose 5% in Water 242 ML IVPB PRN (20:27)
[2018-11-24] MEDS: Albuterol Sulfate 2.5 mg/3 ml Neb NEB SCH ×6 (02:53→22:23)
[2018-11-24 05:06] LABS: ALT (SGPT) 96 U/L (8-55); AST (SGOT) 88 U/L (5-34); Albumin 2.8 g/dL (3.5-5.0); Alkaline Phosphatase 102 U/L (40-110); Anion Gap 24 mmol/L (10-20); BUN (Urea Nitrogen) 49 mg/dL (9.8-20.1); Bilirubin, Total 0.9 mg/dL (0.2-1.2); Calc. Creatinine Clearance 9 mL/min (70-130); Calcium 7.2 mg/dL (7.8-10.44); Carbon Dioxide 14 mmol/L (22-29); Chloride 102 mmol/L (98-107); Estimated GFR-MDRD 7; Globulin 3.1 g/dL (2.4-3.5); Glucose 113 mg/dL (70-105); Potassium 5.1 mmol/L (3.5-5.1); Protein, Total 5.9 g/dL (6.0-8.3); Sodium 135 mmol/L (136-145)
[2018-11-24 07:01] LABS: Hemoglobin 13.5 g/dL (12.0-16.0); Mean Corpuscular HGB CONC 31.5 g/dL (32.0-36.0); Mean Corpuscular Hemoglobin 27.6 pg (27.0-31.0); Mean Corpuscular Volume 87.7 fL (78.0-98.0); Mean Platelet Volume 8.3 fL (7.4-10.4); Platelet Count 211 thou/uL (130-400); RBC Distribution Width 15.1 % (11.5-14.5); Red Blood Cell (RBC) Count 4.89 mill/uL (4.20-5.40); White Blood Cell (WBC) Count 16.3 thou/uL (4.8-10.8)
[2018-11-24 07:02] LABS: Band 4 % (5-11); Basophilic Stippling SLIGHT = 1-2 cells (100X) (None Seen); Lymphocytes 3 % (21-51); MDiff Complete? YES; Monocytes 3 % (0-10); Myelocyte 1 % (0-0); Neutrophil 88 % (42-75); Nucleated RBC 8 % (0); Pappenheimer Bodies SLIGHT = 1-2 cells (100X) (None Seen); Polychromasia MODERATE = 3-4 cells (100X) (0-2/hpf); Reactive Lymphocytes 1 % (0-10)
--- NOTE | 2018-11-24 08:55 | PRG ---
DATE OF SERVICE: 11/24/2018 SUBJECTIVE: Ms. Bearden is in the ICU on a low-dose Levophed drip. Her AV fistula is clotted off, so that is going to be addressed today, she has not had dialysis. OBJECTIVE: VITAL SIGNS: On exam, temperature 98.6, pulse 70, blood pressure 110/80 currently on 1 mcg/minute of Levophed. Intake for last 24 hours 1483 and output zero. HEENT: Unremarkable. NECK: No JVD. CHEST: Clear anteriorly. CARDIAC: S1 and S2. Regular. ABDOMEN: Soft. EXTREMITIES: Trace edema. LABORATORY DATA: Sodium 135, potassium 5.1, BUN 49, creatinine 7.7, and bicarbonate 14. White blood cell count 16.3, hematocrit 42.9, and platelet count 211. ASSESSMENT: 1. Status post acalculous cholecystitis requiring cholecystectomy. 2. Resolved respiratory failure, requiring mechanical ventilation. 3. Lupus. 4. Resolving sepsis. PLAN: 1. She can leave the ICU once she is off the Levophed drip. 2. Dialysis issues are being addressed by Nephrology and General surgery. 3. The patient is continuing Zosyn for the sepsis. When she is able to tolerate oral therapy, I would suggest switching her to Augmentin or Omnicef. Job ID: [id number]
[2018-11-24] MEDS: predniSONE 5 MG TAB PO SCH (09:10)
[2018-11-24] MEDS: Polyethylene Glycol 3350 17 GM Packet PO SCH (09:10)
[2018-11-24] MEDS: Piperacillin/Tazobactam 2.25 GM in Sodium Chloride 0.9% 100 ML IVPB SCH ×2 (09:10→21:49)
[2018-11-24] MEDS: diphenhydrAMINE 50 MG/ML VIAL IVP PRN ×2 (11:51→21:13)
--- NOTE | 2018-11-24 12:12 | PDOC.HOSPP ---
- Subjective Encounter Date: 11/24/18 Encounter Time: 10:15 Subjective: pt has wheezing, this morning off levophed drip, today plan for surgery for av fistula - Objective Vital Signs & Weight: Vital Signs (12 hours) Temp Pulse Resp Pulse Ox 11/24/18 10:41 80 20 11/24/18 08:04 83 22 H 11/24/18 08:00 96 11/24/18 04:00 98.6 F 11/24/18 02:53 84 16 93 L Weight Admit Weight 137 lb Weight 151 lb 0.266 oz Most Recent Monitor Data Heart Rate from ECG 81 NIBP 108/85 NIBP BP-Mean 92 Respiration from ECG 19 SpO2 88 I&O: 11/23/18 11/24/18 11/25/18 06:59 06:59 06:59 Intake Total 1584.2 1483.5 1364.5 Output Total 0 0 3 Balance 1584.2 1483.5 1361.5 Result Diagrams: 11/24/18 04:12 11/24/18 04:12 Additional Labs: Accuchecks 11/24/18 04:31 POC Glucose 99 EKG Reviewed by me: Yes Hospitalist ROS - Review of Systems ENT: denies: ear pain, ear discharge, nose pain, nose discharge, nose congestion , mouth pain, mouth swelling, throat pain, throat swelling, other Respiratory: reports: cough, shortness of breath, SOB with excertion, wheezing. denies: dry, hemoptysis, pleuritic pain, sputum, other Cardiovascular: denies: chest pain, palpitations, orthopnea, paroxysmal noc. dyspnea, edema, light headedness, other Gastrointestinal: denies: nausea, vomiting, abdominal pain, diarrhea, constipation, melena, hematochezia, other Genitourinary: denies: dysuria, frequency, incontinence, hematuria, retention, other Musculoskeletal: denies: neck pain, shoulder pain, arm pain, back pain, hand pain, leg pain, foot pain, other - Medication Medications: Active Medications Generic Name Dose Route Start Last Admin Trade Name Freq PRN Reason Stop Dose Admin Albuterol Sulfate 2.5 mg 11/20/18 22:30 11/24/18 10:41 Ventolin NEB 2.5 mg [id number] INGRID Administration Albuterol/Ipratropium 3 ml 11/19/18 22:35 11/23/18 06:59 Duoneb NEB 3 ml Q4H PRN Administration SOB &/or Wheezing Dextrose/Water 25 gm 11/20/18 23:09 11/20/18 23:35 Dextrose 50% SLOW IVP 25 gm PRN PRN Administration Hypoglycemia Diphenhydramine HCl 50 mg 11/21/18 17:05 11/24/18 11:51 Benadryl IVP 50 mg Q8H PRN Administration Itching Piperacillin Sod/Tazobactam 100 mls @ 200 mls/hr 11/20/18 09:00 11/24/18 09: 10 Sod 2.25 gm/ Sodium Chloride IVPB 100 mls Q12HR INGRID Administration Sodium Chloride 1,000 mls @ 0 mls/hr 11/20/18 19:15 11/21/18 10:16 Normal Saline 0.9% IV 1,000 mls .Q0M INGRID Administration KVO Morphine Sulfate 2 mg 11/20/18 19:14 11/23/18 00:55 Morphine SLOW IVP 12/20/18 19:14 2 mg Q1H PRN Administration BREAKTHROUGH PAIN/Agitation Polyethylene Glycol 17 gm 11/23/18 09:00 11/24/18 09:10 Miralax PO Not Given DAILY INGRID Prednisone 5 mg 11/23/18 09:00 11/24/18 09:10 Prednisone PO 5 mg DAILY INGRID Administration Sodium Chloride 10 ml 11/19/18 22:32 11/20/18 21:06 Flush - Normal Saline IVF 10 ml PRN PRN Administration Saline Flush - Exam General Appearance: NAD, ill appearing Eye: PERRL, anicteric sclera ENT: normocephalic atraumatic, no oropharyngeal lesions Neck: supple, symmetric, no JVD Heart: RRR, no murmur Respiratory: rales, wheezes Gastrointestinal: soft, non-tender, non-distended, normal bowel sounds Extremities: no cyanosis, no clubbing Skin: normal turgor, no lesions Neurological: cranial nerve grossly intact, no focal deficits Musculoskeletal: normal tone, normal strength Psychiatric: normal affect, normal behavior Hosp A/P (1) Acute acalculous cholecystitis Code(s): K81.0 - ACUTE CHOLECYSTITIS Status: Acute (2) Dialysis AV fistula malfunction Code(s): T82.590A - Status: Acute (3) Anemia of renal disease Code(s): D63.1 - ANEMIA IN CHRONIC KIDNEY DISEASE Status: Chronic (4) CVA, old, dysarthria Code(s): I69.322 - DYSARTHRIA FOLLOWING CEREBRAL INFARCTION Status: Chronic (5) Dyslipidemia Code(s): E78.5 - HYPERLIPIDEMIA, UNSPECIFIED Status: Chronic (6) ESRD (end stage renal disease) on dialysis Code(s): N18.6 - END STAGE RENAL DISEASE; Z99.2 - Status: Chronic (7) Hypertension Code(s): I10 - ESSENTIAL (PRIMARY) HYPERTENSION Status: Chronic Qualifiers: (8) Hypoalbuminemia Code(s): E88.09 - OTH DISORDERS OF PLASMA-PROTEIN METABOLISM, NEC Status: Chronic (9) Nephrotic syndrome Code(s): N04.9 - NEPHROTIC SYNDROME WITH UNSPECIFIED MORPHOLOGIC CHANGES Status: Chronic (10) Noncompliance with medication regimen Code(s): Z91.14 - Status: Chronic (11) Secondary hyperparathyroidism of renal origin Code(s): N25.81 - SECONDARY HYPERPARATHYROIDISM OF RENAL ORIGIN Status: Chronic (12) Systemic lupus erythematosus Code(s): M32.9 - SYSTEMIC LUPUS ERYTHEMATOSUS, UNSPECIFIED Status: Chronic (13) Hypotension Status: Resolved (14) Moderate protein malnutrition Code(s): E44.0 - MODERATE PROTEIN-CALORIE MALNUTRITION Status: Chronic - Plan old records reviewed/req, continue antibiotics 11/23/18- today fistula study and then dr bonds will consider surgery if needed , continue zosyn, now BP has improved, medication reviewed as above, symptomatic treatment, close monitoring 11/24/18- if she does not need levophed, then ok to transfer but she will need HD after repair of AV fistula as she is volume overloaded, continue zosyn and change to PO tomorrow, medication reviewed as above, symptomatic treatment
[2018-11-24 12:15] VITALS: BP 103/77
[2018-11-24] MEDS ORDERED: Activase 2 MG VIAL CATH SCH (13:30)
--- NOTE | 2018-11-24 15:38 | SPC ---
PROCEDURE: Left upper extremity fistulogram and left upper extremity venogram with superior vena cavogram. INDICATIONS: Poor functioning fistula. FINDINGS: 1. Fistulogram reveals a lummi fistula without flow into a cephalic vein. There is a stent in the ce phalic vein in the proximal to mid humerus. The stent is patent. The outflow is patent to the junctio n with the cephalic vein to the subclavian vein just beyond the axilla. 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 This appears to be longstanding with multiple co llaterals arising at this location. 2. The arterial anastomosis was refluxed. There is a tight stenosis at the arterial anastomosis. The re is evidence of focal aneurysmal dilatation within the brachial artery at the anastomosis which is suboptimally evaluated. IMPRESSION: 1. Evidence of high grade inflow stenosis at the arterial anastomosis and question aneurysmal ch anges at the brachial artery at this anastomosis. 2. 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 3. Findings relayed to Dr. Hancock. PROCEDURE NOTE: The left upper extremity prepped and draped in a sterile manner. Fistula was evaluated with ultrasoun d. The fistula was punctured under local anesthesia just beyond the arterial anastomosis at the elbow . 5 [place] catheter was placed. Fistulogram was obtained by injecting through this catheter. Central venogram was obtained. Arterial anastomosis was imaged occluding the outflow and refluxing the arteri al side. There were no problems or complications. POS: [facility]
--- NOTE | 2018-11-24 17:33 | PDOC.CPN ---
- Subjective Date: 11/24/18 Time: 17:31 Interval history: No new issues. - Review of Systems General: denies: fever/chills, weight/appetite/sleep changes, night sweats, fatigue Respiratory: denies: cough, congestion, shortness of breath, exercise intolerance Cardiovascular: denies: chest pain, palpitation, edema, paroxysmal nocturnal dyspnea, orthopnea Gastrointestinal: denies: nausea, vomiting, diarrhea, constipation, abd pain, GI bleeding Musculoskeletal: denies: pain, tenderness, stiffness, swelling, arthritis/ arthralgias Neurological: denies: numbness, syncope, seizure, weakness - Objective Allergies/Adverse Reactions: Allergies Allergy/AdvReac Type Severity Reaction Status Date / Time HUANG Inhibitors Allergy Verified 05/28/18 00:22 clonidine Allergy Verified 05/28/18 00:22 nitroglycerin Allergy Verified 05/28/18 00:22 Visit Medications: Current Medications Acetaminophen (Tylenol) 1,000 mg PO Q6H PRN PRN Reason: Moderate to Severe Pain (6-10) Hydrocodone Bitart/Acetaminophen ([place] 5/325) 1 tab PO Q4H PRN PRN Reason: Moderate Pain (4-6) Albuterol Sulfate (Ventolin) 2.5 mg NEB [id number] INGRDI Last Admin: 11/24/18 14:20 Dose: Not Given Albuterol/Ipratropium (Duoneb) 3 ml NEB Q4H PRN PRN Reason: SOB &/or Wheezing Last Admin: 11/23/18 06:59 Dose: 3 ml Alteplase, Recombinant (Cathflo) 4 mg CATH NOW INGRID Stop: 11/24/18 21:00 Last Admin: 11/24/18 15:23 Dose: Not Given Artificial Tears (Tears Naturale) 2 drop EA EYE PRN PRN PRN Reason: Dry Eyes Bisacodyl (Dulcolax) 10 mg IN DAILYPRN PRN PRN Reason: Constipation Calcium Carbonate (Tums) 1,000 mg PO Q4H PRN PRN Reason: Heartburn or Indigestion Dextrose/Water (Dextrose 50%) 25 gm SLOW IVP PRN PRN PRN Reason: Hypoglycemia Last Admin: 11/20/18 23:35 Dose: 25 gm Diphenhydramine HCl (Benadryl) 50 mg IVP Q8H PRN PRN Reason: Itching Last Admin: 11/24/18 11:51 Dose: 50 mg Glucagon (Glucagon) 1 mg IM PRN PRN PRN Reason: Hypoglycemia Guaifenesin (Robitussin Sf) 200 mg PO Q4H PRN PRN Reason: Cough Hydralazine HCl (Apresoline) 10 mg SLOW IVP Q4H PRN PRN Reason: SBP > 180 and HR < 70 Piperacillin Sod/Tazobactam (Sod 2.25 gm/ Sodium Chloride) 100 mls @ 200 mls/ hr IVPB Q12HR [facility] Last Admin: 11/24/18 09:10 Dose: 100 mls Sodium Chloride (Normal Saline 0.9%) 1,000 mls @ 0 mls/hr IV .Q0M [facility] Last Admin: 11/21/18 10:16 Dose: 1,000 mls Fentanyl Citrate 2,000 mcg/ (Sodium Chloride) 100 mls @ 0 mls/hr IV INF INGRID; Protocol Stop: 12/20/18 19:14 Fentanyl Citrate (Fentanyl Bolus) 250 mls @ 0 mls/hr IVPB PRN PRN PRN Reason: Breakthrough pain/agitation Stop: 12/20/18 19:14 Dextrose/Water (D5w) 1,000 mls @ 0 mls/hr IV .Q0M PRN PRN Reason: Hypoglycemia Norepinephrine Bitartrate 8 mg (/ Dextrose/Water) 250 mls @ 0 mls/hr IVPB INF PRN; Protocol PRN Reason: TO MAINTAIN MAP > 65 Loperamide HCl (Imodium) 2 mg PO PRN PRN PRN Reason: Diarrhea/Loose Stools Loratadine (Claritin) 10 mg PO DAILYPRN PRN PRN Reason: Sinus Symptoms Lorazepam (Ativan) 2 mg SLOW IVP Q1H PRN PRN Reason: Breakthrough agitation Stop: 12/20/18 19:14 Mineral Oil/White Petrolatum (Systane Nighttime Eye Ointment) 0 gm EA EYE PRN PRN PRN Reason: Dry Eyes Miscellaneous Medication (Pharmacy To Dose) 1 each IVPB PRN PRN PRN Reason: Pharmacy to dose Morphine Sulfate (Morphine) 2 mg SLOW IVP Q1H PRN PRN Reason: BREAKTHROUGH PAIN/Agitation Stop: 12/20/18 19:14 Last Admin: 11/23/18 00:55 Dose: 2 mg Discontinue Previous Narcotic Pain Medications And Benzodiazepines 1 each FS .ONE [facility] Stop: 12/20/18 19:14 Ondansetron HCl (Zofran Odt) 4 mg PO Q6H PRN PRN Reason: Nausea/Vomiting Ondansetron HCl (Zofran) 4 mg IVP Q6H PRN PRN Reason: Nausea/Vomiting Polyethylene Glycol (Miralax) 17 gm PO DAILY [facility] Last Admin: 11/24/18 09:10 Dose: Not Given Prednisone (Prednisone) 5 mg PO DAILY [facility] Last Admin: 11/24/18 09:10 Dose: 5 mg Senna/Docusate Sodium (Senokot S) 2 tab PO BID PRN PRN Reason: Constipation Sodium Chloride (Flush - Normal Saline) 10 ml IVF PRN PRN PRN Reason: Saline Flush Last Admin: 11/20/18 21:06 Dose: 10 ml Sodium Chloride (Normal Saline Pf) 10 ml FS PRN PRN PRN Reason: RECONSTITUTION Sodium Chloride ([place] Nasal [place] 0.65%) 0 ml EA NARE QIDPRN PRN PRN Reason: Nasal Congestion Throat Lozenges (Cepastat Lozenges) 1 wilber PO Q2H PRN PRN Reason: Sore Throat Tramadol HCl (Ultram) 50 mg PO Q4H PRN PRN Reason: Pain 1-5 Vital Signs & Weight: Vital Signs Pulse Pulse Pulse Resp BP BP Pulse Ox 11/24/18 10:41 80 20 11/24/18 09:42 85 81 103/77 97/74 11/24/18 08:04 83 22 H 11/24/18 08:00 96 Pulse Ox Pulse Ox 11/24/18 10:41 11/24/18 09:42 90 L 91 L 11/24/18 08:04 11/24/18 08:00 Admit Weight 137 lb Weight 151 lb 0.266 oz - Physical Exam General: alert & oriented x3, no apparent distress HEENT: normocephaly Neck: supple neck Cardiac: regular rate and rhythm Lungs: clear to auscultation Neuro: grossly intact Abdomen: active bowel sounds Skin: clear Musculoskeletal: no pain - Labs Result Diagrams: 11/24/18 04:12 11/24/18 04:12 Troponin/CKMB CK-MB (CK-2) 3.5 ng/mL (0-6.6) 11/21/18 04:28 Troponin I 0.886 ng/mL (< 0.028) H* 11/21/18 04:28 - Telemetry Sinus rhythms and dysrhythmias: sinus rhythm - Assessment/Plan Assessment/Plan: 1, Hypotension post op. Resolved. 2. Volume overload. 3. Severe pulmonary HTN 4. ESRD. 5. Acalculous cholecystitis, S/P Lap lisy 6. Type 2 [place], demand ischemia. PLAN: - Likely her troponin bump is related to her ESRD and volume overload. No plan for intervention at this time. - Will need ischemic work up as outpatient when acute setting resolved. - Pressors as needed for low BP. - Will sign out. Please call with any questions.
--- NOTE | 2018-11-24 17:51 | PRG ---
DATE OF SERVICE: 11/24/2018 SUBJECTIVE: Patient was seen and examined at bedside and overnight events noted. Patient denies any shortness of breath or chest pain or palpitation. No history of nausea or vomiting or diarrhea or fever or chills or cramps. OBJECTIVE: GENERAL: This is a well-built female in no apparent distress. VITAL SIGNS: Temperature 96. Heart rate 80. Respiratory rate 23, blood pressure 149/92. HEENT: Atraumatic, normocephalic. Oral mucosa is moist NECK: Supple. CARDIOVASCULAR: S1, S2 heard. Rate and rhythm regular. RESPIRATORY: Clear to auscultation. GASTROINTESTINAL: Abdomen is soft. MUSCULOSKELETAL: No tenderness. No edema. DERMATOLOGIC: No skin rash. NEUROLOGIC: Alert and awake and oriented X3. No focal neurologic deficits. Moving all the extremities. PSYCHIATRIC: Mood and affect normal. LABORATORY DATA: Potassium 5.1, BUN is 49, and creatinine is 7.7. ASSESSMENT AND PLAN: 1. End-stage renal disease with nonfunctioning fistula. Surgery is awaited. The patient's PD catheter needs to be placed later on due to the cardiac risk and plan is to put a dialysis catheter and dialyze her and follow with surgery. 2. Cardiorenal syndrome. 3. Hypertension. 4. Anemia. 5. Edema, controlled. 6. Continue dialysis as tolerated. We will have dialysis once access is placed. Surgeon is aware. Job ID: [id number]
--- NOTE | 2018-11-24 19:21 | PRG ---
DATE OF SERVICE: 11/24/2018 SUBJECTIVE: She is in ICU. She has been weaned off her pressors. She was on 2 to 3 mcg of Levophed, but when it was discontinued, she dropped her pressure minimally to the 70s. She was maintained on 1 or 2 mcg of Levophed. Levophed has been now been discontinued. She has been off that. OBJECTIVE: VITAL SIGNS: Blood pressure 114/92, heart rate 80. LUNGS: Clear to auscultation. CARDIAC: Regular rhythm. No murmur or gallop. ABDOMEN: Soft. EXTREMITIES: Thrombosed fistula, left arm. Fistulogram performed today revealed a left subclavian vein stent, stents in the left upper arm fistula and these cannot be salvaged. The director compliance talked to her about consideration and possible peritoneal dialysis and the patient has expressed interest in that. However, this will not be performed in this hospitalization due to a general anesthetic and all that she has been through. Tomorrow, we will plan placement of a cuffed tunneled dialysis catheter and possibly a right arm fistula or graft. LABORATORY DATA: Hemoglobin 13 and white count 16. Basic metabolic profile changes consistent with end-stage renal disease. Pathology of gallbladder, chronic cholecystitis. ASSESSMENT AND PLAN: Hemodynamic instability, status post laparoscopic cholecystectomy. Cholecystectomy specimen was not infected. We will place hemodialysis catheter tomorrow, cuffed tunneled, in the operating room and posterior a right arm fistula or graft. If she continues to do well overnight, we can consider her for peritoneal dialysis in the future. Of course, she will need cardiac clearance prior to that for general anesthetic. Job ID: [id number]
[2018-11-25] MEDS: Albuterol Sulfate 2.5 mg/3 ml Neb NEB SCH ×2 (02:42→10:38)
[2018-11-25 04:56] VITALS: BMI 33.1
[2018-11-25 05:28] LABS: Anion Gap 26 mmol/L (10-20); BUN (Urea Nitrogen) 59 mg/dL (9.8-20.1); Calc. Creatinine Clearance 8 mL/min (70-130); Calcium 7.3 mg/dL (7.8-10.44); Carbon Dioxide 19 mmol/L (22-29); Chloride 97 mmol/L (98-107); Estimated GFR-MDRD 6; Glucose 80 mg/dL (70-105); Potassium 5.4 mmol/L (3.5-5.1); Sodium 137 mmol/L (136-145)
[2018-11-25 05:46] LABS: Band 3 % (5-11); Hemoglobin 13.1 g/dL (12.0-16.0); Lymphocytes 5 % (21-51); MDiff Complete? YES; Mean Corpuscular HGB CONC 31.9 g/dL (32.0-36.0); Mean Corpuscular Hemoglobin 28.8 pg (27.0-31.0); Mean Corpuscular Volume 90.2 fL (78.0-98.0); Mean Platelet Volume 8.7 fL (7.4-10.4); Monocytes 7 % (0-10); Neutrophil 84 % (42-75); Nucleated RBC 21 % (0); Platelet Count 192 thou/uL (130-400); Polychromasia SLIGHT = 2-3 cells (100X) (0-2/hpf); RBC Distribution Width 15.5 % (11.5-14.5); Reactive Lymphocytes 1 % (0-10); Red Blood Cell (RBC) Count 4.55 mill/uL (4.20-5.40); White Blood Cell (WBC) Count 11.8 thou/uL (4.8-10.8)
--- NOTE | 2018-11-25 07:44 | PRG ---
DATE OF SERVICE: 11/25/2018 SUBJECTIVE: The patient's dialysis access is currently not working, so she is going to have an alternative place today. OBJECTIVE: VITAL SIGNS: Temperature is 98.5, pulse 81, blood pressure 99/67, and O2 saturation is 93%. HEENT: Unremarkable. NECK: No JVD. LUNGS: Fairly clear. CARDIAC: S1, S2. Regular. ABDOMEN: Mildly tender from previous surgery. EXTREMITIES: No edema. LABORATORY DATA: White blood cell count 11.8, hematocrit 41, and platelet count 192. Sodium 137, potassium 5.4, chloride 97, CO2 of 19, BUN 59, creatinine 8.5, and glucose 80. ASSESSMENT: 1. Status post cholecystectomy for acalculous cholecystitis. 2. Chronic renal failure, requiring hemodialysis. 3. Systemic lupus erythematosus. PLAN: 1. Expected dialysis catheter placement today, subsequent dialysis. 2. Continuing antibiotics for full 7 days, then stop. 3. Has been successfully weaned off vasopressors. Job ID: [id number]
[2018-11-25] MEDS: Piperacillin/Tazobactam 2.25 GM in Sodium Chloride 0.9% 100 ML IVPB SCH (08:11)
[2018-11-25] MEDS: Polyethylene Glycol 3350 17 GM Packet PO SCH (08:13)
[2018-11-25] MEDS: predniSONE 5 MG TAB PO SCH (08:13)
[2018-11-25] MEDS ORDERED: Albuterol Sulfate 2.5 mg/3 ml Neb NEB PRN (08:22)
--- NOTE | 2018-11-25 10:42 | PRG ---
DATE OF SERVICE: SUBJECTIVE: Patient was seen and examined at bedside and overnight events noted. Patient denies any shortness of breath or chest pain or palpitation. No history of nausea or vomiting or diarrhea or fever or chills or cramps. OBJECTIVE: GENERAL: This is a well-built female, in no apparent distress. VITAL SIGNS: Temperature 98.5. Heart rate 70. Respiratory rate 18. Blood pressure 111/83. HEENT: Atraumatic, normocephalic. Oral mucosa is moist NECK: Supple. CARDIOVASCULAR: S1, S2 heard. Rate and rhythm regular. RESPIRATORY: Clear to auscultation. GASTROINTESTINAL: Abdomen is soft. MUSCULOSKELETAL: No tenderness. No edema. DERMATOLOGIC: No skin rash. NEUROLOGIC: Alert and awake and oriented X3. No focal neurologic deficits. Moving all the extremities. PSYCHIATRIC: Mood and affect normal. LABORATORY DATA: Potassium 5.4, BUN is 59, and creatinine is 8.5. ASSESSMENT AND PLAN: 1. End-stage renal disease. Continue dialysis as tolerated. We will plan for dialysis once access is re-established. 2. Cardiorenal syndrome. We will remove fluid with caution. 3. Hypertension. 4. Anemia. 5. Edema with fluid overload. 6. Plan to start back on dialysis. Continue dialysis on Friday, Friday, Friday. Limit salt and fluid intake. Job ID: [id number]
[2018-11-25 12:04] VITALS: TEMP 97.9
[2018-11-25] MEDS ORDERED: Lidocaine 2% PF 5 ML VIAL ONE (16:28)
[2018-11-25] MEDS ORDERED: Heparin 10,000 UNITS/1 ML VIAL ONE (16:28)
[2018-11-25] MEDS ORDERED: Sodium Chloride 0.9% 10 ML ONE ×2 (16:28→17:45)
[2018-11-25] MEDS ORDERED: Bupivacaine HCl 0.5%/Epinephrine 1:200,000/PF 30 ml Vial ONE (16:28)
[2018-11-25] MEDS ORDERED: Ketamine 50 MG/ML (10ML VIAL) ONE (17:43)
[2018-11-25] MEDS ORDERED: Fentanyl 100 MCG/2 ML VIAL ONE ×3 (17:43→20:13)
[2018-11-25] MEDS ORDERED: Midazolam HCl 2 mg/2 ml Vial ONE (17:43)
[2018-11-25] MEDS ORDERED: PHENYLEPHRINE-NS 100 MCG/ML 10 ML SYRINGE ONE (18:30)
[2018-11-25] MEDS ORDERED: Ondansetron HCl/PF 4 MG/2 ML Vial IVP PRN (18:39)
--- NOTE | 2018-11-25 18:53 | RAD ---
RADIOGRAPH CHEST 1 VIEW: DATE: 11/25/2018 HISTORY: Dialysis catheter insertion FINDINGS: There is no airspace density, pulmonary edema, or pneumothorax. The lateral costophrenic angles are n ot effaced. The lateral interval change compared to 11/20/2018 is a new double lumen dialysis catheter descending from the right medial neck (presumably in internal jugular vein) with distal tips overlying the SVC and upper right atrium. Magnification of the cardiac shadow. IMPRESSION: 1. No acute pulmonary findings. 2. Right-sided hemodialysis catheter placement without pneumothorax.
--- NOTE | 2018-11-25 20:08 | PDOC.HOSPP ---
- Subjective Encounter Date: 11/25/18 Encounter Time: 16:40 Subjective: Awaiting placement cuffed dialysis catheter and possible fistula. No pressors. Denies postop pain from lap lisy. Generally tired but feels she is better than admission. - Objective Vital Signs & Weight: Vital Signs (12 hours) Temp Pulse Resp 11/25/18 12:00 97.9 F 11/25/18 11:20 84 24 H Weight Admit Weight 137 lb Weight 153 lb 3.54 oz Most Recent Monitor Data Heart Rate from ECG 87 NIBP 130/88 NIBP BP-Mean 102 Respiration from ECG 22 SpO2 94 I&O: 11/24/18 11/25/18 11/26/18 06:59 06:59 06:59 Intake Total 1483.5 1652.5 576 Output Total 0 5 0 Balance 1483.5 1647.5 576 Result Diagrams: 11/25/18 04:30 11/25/18 04:30 Additional Labs: Accuchecks 11/25/18 04:39 POC Glucose 78 Hospitalist ROS - Medication Medications: Active Medications Generic Name Dose Route Start Last Admin Trade Name Freq PRN Reason Stop Dose Admin Albuterol/Ipratropium 3 ml 11/19/18 22:35 11/25/18 11:20 Duoneb NEB 3 ml Q4H PRN Administration SOB &/or Wheezing Dextrose/Water 25 gm 11/20/18 23:09 11/20/18 23:35 Dextrose 50% SLOW IVP 25 gm PRN PRN Administration Hypoglycemia Diphenhydramine HCl 50 mg 11/21/18 17:05 11/24/18 21:13 Benadryl IVP 50 mg Q8H PRN Administration Itching Piperacillin Sod/Tazobactam 100 mls @ 200 mls/hr 11/20/18 09:00 11/25/18 08: 11 Sod 2.25 gm/ Sodium Chloride IVPB 100 mls Q12HR INGRID Administration Sodium Chloride 1,000 mls @ 0 mls/hr 11/20/18 19:15 11/21/18 10:16 Normal Saline 0.9% IV 1,000 mls .Q0M INGRID Administration KVO Morphine Sulfate 2 mg 11/20/18 19:14 11/23/18 00:55 Morphine SLOW IVP 12/20/18 19:14 2 mg Q1H PRN Administration BREAKTHROUGH PAIN/Agitation Ondansetron HCl 4 mg 11/23/18 07:47 11/25/18 02:31 Zofran IVP 4 mg Q6H PRN Administration Nausea/Vomiting Polyethylene Glycol 17 gm 11/23/18 09:00 11/25/18 08:13 Miralax PO Not Given DAILY INGRID Prednisone 5 mg 11/23/18 09:00 11/25/18 08:13 Prednisone PO Not Given DAILY INGRID Sodium Chloride 10 ml 11/19/18 22:32 11/20/18 21:06 Flush - Normal Saline IVF 10 ml PRN PRN Administration Saline Flush - Exam General Appearance: NAD, awake alert Eye: PERRL ENT: normocephalic atraumatic Neck: supple Heart: RRR Heart - other findings: soft murmur RUSB Respiratory - other findings: Decreased bs bases Gastrointestinal: soft, non-tender, non-distended Extremities - other findings: trace edema Skin: no rashes Neurological: no focal deficits Musculoskeletal - other findings: Moves ext bilaterally and to command Psychiatric: A&O x 3 Hosp A/P (1) Acute acalculous cholecystitis Code(s): K81.0 - ACUTE CHOLECYSTITIS Status: Acute (2) Dialysis AV fistula malfunction Code(s): T82.590A - [facility] COMPL OF SURGICALLY CREATED ARTERIOVENOUS FISTULA, INIT Status: Acute (3) Moderate protein malnutrition Code(s): E44.0 - MODERATE PROTEIN-CALORIE MALNUTRITION Status: Chronic (4) Hypotension Status: Resolved (5) Anemia of renal disease Code(s): D63.1 - ANEMIA IN CHRONIC KIDNEY DISEASE Status: Chronic (6) CVA, old, dysarthria Code(s): I69.322 - DYSARTHRIA FOLLOWING CEREBRAL INFARCTION Status: Chronic (7) Dyslipidemia Code(s): E78.5 - HYPERLIPIDEMIA, UNSPECIFIED Status: Chronic (8) ESRD (end stage renal disease) on dialysis Code(s): N18.6 - END STAGE RENAL DISEASE; Z99.2 - DEPENDENCE ON RENAL DIALYSIS Status: Chronic (9) Hypertension Code(s): I10 - ESSENTIAL (PRIMARY) HYPERTENSION Status: Chronic Qualifiers: (10) Hypoalbuminemia Code(s): E88.09 - OTH DISORDERS OF PLASMA-PROTEIN METABOLISM, NEC Status: Chronic (11) Nephrotic syndrome Code(s): N04.9 - NEPHROTIC SYNDROME WITH UNSPECIFIED MORPHOLOGIC CHANGES Status: Chronic (12) Secondary hyperparathyroidism of renal origin Code(s): N25.81 - SECONDARY HYPERPARATHYROIDISM OF RENAL ORIGIN Status: Chronic (13) Systemic lupus erythematosus Code(s): M32.9 - SYSTEMIC LUPUS ERYTHEMATOSUS, UNSPECIFIED Status: Chronic - Plan Records reviewed Goal for definitive HD access, appreciate Dr. Hancock's care. In the future, peritoneal dialysis might be an option POD #5 s/p lap lisy, anticipate cessation abx in 48hrs Mobilize/OOB (patient deconditioned, prolonged hospital stay)
[2018-11-25] MEDS ORDERED: Ondansetron PF 4 MG/2 ML Vial ONE (20:12)
[2018-11-25] MEDS ORDERED: Albumin 5% 500 ML ONE (20:24)
[2018-11-25] MEDS ORDERED: Sodium Chloride 0.9% 500 ML IV SCH (20:30)
--- NOTE | 2018-11-25 20:35 | PDOC.EVN ---
Event Note - Event Note Event Note: Paged by RN in Recovery, pt has had sustained hypotension with SBP: 60-80 range , for the past 2 hours, saturation is normal, discussed with Dr Vieyra , we will give albumin, if bp still low will give an extra 500ml/hr further recommendation for fluid balance/hemodyalisis as per neprho, at this point unable to place in tele, we will continue close monitoring till bp stabilize, if needed would restart pressors. pt already covered with abt's
[2018-11-25] MEDS ORDERED: Albumin 25% 25 GM/100 ML BOT IVPB SCH (21:00)
[2018-11-25] MEDS ORDERED: Succinylcholine Chloride 20 MG/ML 10 ml SYRINGE FS ONE (21:07)
[2018-11-25] MEDS ORDERED: Insulin Regular 300 UNITS/3 ML VIAL ONE (21:22)
[2018-11-25] MEDS ORDERED: Dextrose 50% Abboject 50 ML SYRINGE ONE (21:24)
[2018-11-25 21:53] LABS: CO2 Tension 33.3 mmHg (35.0-45.0); O2 Tension (PaO2) 103.8 mmHg (80.0-100.0); pH, Arterial 7.08 (7.35-7.45)
[2018-11-25 21:54] LABS: Actual Bicarbonate (HCO3a) 9.5 mEq/L (22-28); Base Excess (BEa) -19.3 mEq/L (-2.0 to +3.0); Calcium, Ionized 1.09 mmol/L (1.12-1.30); Carboxyhemoglobin (COHb) 0.6 gm% (0.0-3.0); Hemoglobin (Hb) 10.7 g/dL (12.0-16.0); Potassium - ABG Lab 6.29 mmol/L (3.70-5.30); Puncture Site FEM
[2018-11-25 21:55] LABS: ALV-art Gradient 567.575 (0-20)
[2018-11-25 22:08] LABS: Actual Bicarbonate (HCO3a) 7.9 mEq/L (22-28); Base Excess (BEa) -19.9 mEq/L (-2.0 to +3.0); Calcium, Ionized 0.96 mmol/L (1.12-1.30); Carboxyhemoglobin (COHb) 0.4 gm% (0.0-3.0); Hemoglobin (Hb) 12.7 g/dL (12.0-16.0); O2 Tension (PaO2) 294.8 mmHg (80.0-100.0)
[2018-11-25 22:12] LABS: pH, Arterial 7.12 (7.35-7.45)
[2018-11-25 22:13] LABS: CO2 Tension 24.9 mmHg (35.0-45.0); Puncture Site LFA
[2018-11-25 22:14] LABS: ALV-art Gradient 387.075 (0-20)
[2018-11-25] MEDS ORDERED: Dextrose 10% in Water 1,000 ML IV SCH (22:15)
[2018-11-25] MEDS ORDERED: EPINEPHrine 1 MG/10 ML Abboject SYRINGE ONE ×2 (22:15→23:29)
[2018-11-25] MEDS ORDERED: EPINEPHrine 1 MG, Admixture Fee 1 EACH in Dextrose 5% in Water 250 ML IVPB SCH (22:30)
[2018-11-25 22:31] LABS: Actual Bicarbonate (HCO3a) 9.3 mEq/L (22-28); Base Excess (BEa) -21.2 mEq/L (-2.0 to +3.0); CO2 Tension 39.2 mmHg (35.0-45.0); Calcium, Ionized 1.11 mmol/L (1.12-1.30); Carboxyhemoglobin (COHb) 0.4 gm% (0.0-3.0); Hemoglobin (Hb) 10.9 g/dL (12.0-16.0); O2 Tension (PaO2) 119.4 mmHg (80.0-100.0); Potassium - ABG Lab 5.42 mmol/L (3.70-5.30)
[2018-11-25 22:32] LABS: Puncture Site LFA; pH, Arterial 6.99 (7.35-7.45)
[2018-11-25 22:34] LABS: Hemoglobin 10.3 g/dL (12.0-16.0); Mean Corpuscular HGB CONC 31.1 g/dL (32.0-36.0); Mean Corpuscular Hemoglobin 29.2 pg (27.0-31.0); Mean Corpuscular Volume 94.1 fL (78.0-98.0); Mean Platelet Volume 8.8 fL (7.4-10.4); Platelet Count 122 thou/uL (130-400); RBC Distribution Width 15.7 % (11.5-14.5); Red Blood Cell (RBC) Count 3.52 mill/uL (4.20-5.40)
[2018-11-25] MEDS ORDERED: EPINEPHrine 4 MG in Dextrose 5% in Water 250 ML IV SCH (22:45)
[2018-11-25 22:57] LABS: Band 9 % (5-11); Burr Cells SLIGHT = 2-5 cells (100X) (0-1/hpf); Eosinophils 1 % (0-10); Lymphocytes 13 % (21-51); MDiff Complete? YES; Macrocytosis MODERATE=16-30 cells (100X) (0-5/hpf); Monocytes 8 % (0-10); Neutrophil 53 % (42-75); Nucleated RBC 25 % (0); Ovalocytes SLIGHT = 2-5 cells (100X) (0-1/hpf); Platelet Morphology Comment Appears Decreased; Polychromasia MODERATE = 3-4 cells (100X) (0-2/hpf); Reactive Lymphocytes 16 % (0-10); Schistocytes SLIGHT = 2-5 cells (100X) (0-1/hpf); Tear Drops SLIGHT = 2-5 cells (100X) (0-1/hpf); White Blood Cell (WBC) Count 12.3 thou/uL (4.8-10.8)
[2018-11-25 22:58] LABS: Anion Gap 32 mmol/L (10-20); BUN (Urea Nitrogen) 61 mg/dL (9.8-20.1); Calc. Creatinine Clearance 8 mL/min (70-130); Calcium 7.9 mg/dL (7.8-10.44); Carbon Dioxide 12 mmol/L (22-29); Chloride 96 mmol/L (98-107); Estimated GFR-MDRD 6; Potassium 5.4 mmol/L (3.5-5.1); Sodium 135 mmol/L (136-145)
--- NOTE | 2018-11-25 22:58 | PRG ---
DATE OF SERVICE: 11/25/2018 SUBJECTIVE: Ms. Bearden is 53-year-old female. She apparently went to the OR for vascular access for dialysis. She coded after dialysis, I am told. She is coded since she arrived in the ICU. Last blood gas shows pH of 6.99 with CO2 39, mechanical ventilatory rate of 26, tidal volume 400, FiO2 of 60%, PO2 is 119. She is on pressors. They are attempting to dialyze her. She is unresponsive over breathing mechanical ventilation. OBJECTIVE: LUNGS: She has coarse equal breath sounds. HEART: Regular rhythm. ABDOMEN: Distended. EXTREMITIES: Cool. LABORATORY DATA: Sodium 137, potassium 5.4, chloride 97, bicarb 19 this morning. At 9:08 p.m., her pH 7.12; at 09:45 p.m., pH 7.08; and now her pH is 6.99. IMPRESSION: Severe metabolic acidosis of unclear etiology. In my opinion, she cannot survive this. I discussed the above with the hospitalist. He will meet with family. It is unclear at this time with the cause of her severe metabolic acidosis. I just cannot see how she can survive this with a progressive rapid deterioration of her metabolic acidosis. Job ID: [id number]
[2018-11-25 23:03] LABS: Troponin I 0.168 ng/mL (< 0.028)
[2018-11-25 23:06] LABS: Glucose 649 mg/dL (70-105)
--- NOTE | 2018-11-25 23:30 | PDOC.EVN ---
Event Note - Event Note Event Note: pt continued to deteriorate, and went into cardiorespiratory arrest, agressive measures for life support were taken, please see code sheet for details, case discussed with consultants at bedside, appreciate their efforst, pt metabolic derangement was non compatible with life, family has been updated in the icu meeting room about our effort to save pt's life, after several cardiorespiratory arrest efforts were stopped given no meaningful recovery possibilities for the pt , pt's family members understood and agreeable with stopping resuscitation efforts Pt had no pulse, no reflexes, no cardiac rhythm on the monitor, no spontaneous respiratory sounds, no heart sounds. Pronounced
--- NOTE | 2018-11-26 00:08 | OP ---
DATE OF PROCEDURE: 11/25/2018 PREOPERATIVE DIAGNOSES: End-stage renal disease, thrombosed fistula left arm, left subclavian vein stent with occlusion and stenting left arm fistula in need of dialysis access and multiple previous dialysis catheters. POSTOPERATIVE DIAGNOSES: End-stage renal disease, thrombosed fistula left arm, left subclavian vein stent with occlusion and stenting left arm fistula in need of dialysis access and multiple previous dialysis catheters. PROCEDURES PERFORMED: Right IJ cuffed tunneled hemodialysis catheter, AngioDynamics precurved with ultrasound and fluoroscopy use. DESCRIPTION OF PROCEDURE: The patient was taken to the operating room where under intravenous sedation in the supine position, her neck and chest were prepared with ChloraPrep and draped in routine fashion. Local anesthetic mixture 0.5% Marcaine with epinephrine 30 mL mixed with 2% Xylocaine 10 mL infiltrated in the skin and subcutaneous tissue about the operative site. Using ultrasound guidance, I was able to visualize the right internal jugular vein and trocar catheter cannulated it. J-wire threaded and there was some resistance, but it was able to be manipulated into the superior vena cava and fluoroscopically verified. A stab incision was made over the right chest. Using the tunneling device, pre-curved AngioDynamics cuffed-tunneled hemodialysis catheter tunneled between 2 incisions, placed the fabric cuff in the skin exit site and catheter secured with 2 interrupted suture of 3-0 nylon. Small and medium size dilators placed over the J-wire into the superior vena cava and removed. Dilator and Peel-Away sheath placed with J-wire in superior vena cava. Dilator and J-wire were removed. Catheter placed with Peel-Away sheath. Peel-Away sheath removed. Platysma was approximated with 4-0 Monocryl, skin with subdermal 4-0 Monocryl and [place] glue and sterile dressings applied and each port aspirated and blood flushed with saline solution and heparinized saline solution 1000 units heparin per mL indicating volume of port. Job ID: [id number]
--- NOTE | 2018-11-26 07:53 | PRG ---
DATE OF SERVICE: 11/25/2018 EVENT NOTE: I was called by the bedside nurse for Ms. Bearden, who was having multiple code attempts. The patient was having dialysis access issues, was taken to the OR. Post surgery after the placement of dialysis catheter, the patient was severely hypotensive and also found to have severe acidosis. She was not able to get dialysis due to the resuscitation attempts. The patient 's pH continued to drop and remained hypotensive despite on multiple pressors. Code team was at the bedside. When I evaluated her, Dr. Bear and Dr. Israel were also at the bedside. The patient was started on dialysis after multiple code blues and maximum doses of pressors, but was not able to tolerate dialysis. The patient went Asystole multiple times despite having code attempt for more than 90 minutes, and family decided to make her DNR and was pronounced by the hospitalist. Emotional support was given to the family and family declined autopsy. Dr. Israel was also at the scene at the time of expiration. Job ID: [id number] MTDD
--- NOTE | 2018-11-26 20:32 | EKG ---
Test Reason : Blood Pressure : / mmHG Vent. Rate : 088 BPM Atrial Rate : 088 BPM P-R Int : 166 ms QRS Dur : 086 ms QT Int : 392 ms P-R-T Axes : 063 108 115 degrees QTc Int : 474 ms Normal sinus rhythm Possible Right ventricular hypertrophy Nonspecific T wave abnormality Prolonged QT Abnormal ECG When compared with ECG of 20-NOV-2018 19:37, (Unconfirmed) Nonspecific T wave abnormality now evident in Lateral leads Confirmed by ELLY PHAM, SChantale (4) on 11/26/2018 8:31:32 PM Referred By: MATT Confirmed By:DR. Jessica SANABRIA MD
--- NOTE | 2018-11-27 01:56 | DIS ---
DATE OF ADMISSION: 11/19/2018 DATE OF DISCHARGE: 11/25/2018 PRIMARY CARE PHYSICIAN: Dr. Mcgill. PRIMARY DEHYDROGENATION OPERATOR: Dr. Elissa Vieyra. CHIEF COMPLAINT/REASON FOR ADMISSION: Nausea and vomiting with abdominal discomfort. PRINCIPAL DIAGNOSIS: On admission, persistent nausea/vomiting/abdominal discomfort, secondary to acalculous cholecystitis. DISCHARGE DIAGNOSES/DIAGNOSES AT THE TIME OF : 1. Cardiopulmonary arrest in the context of severe metabolic acidosis of undetermined etiology. 2. Acalculous cholecystitis, status post laparoscopic cholecystectomy on 2018. 3. Postoperative hypotension. 4. End-stage renal disease, on hemodialysis. 5. Systemic lupus erythematosus, on chronic steroids. 6. Mild intermittent asthma. 7. History of prior cerebrovascular accident. 8. Dyslipidemia. 9. Chronic pain syndrome. 10. Anemia secondary to chronic renal disease. 11. AV fistula malfunction, requiring replacement hemodialysis access, status post right IJ hemodialysis catheter placement on 11/25/2018. 12. Moderate protein-calorie malnutrition. 13. Dyslipidemia. 14. Essential hypertension. 15. Hypoalbuminemia. 16. Nephrotic syndrome. 17. Secondary hyperparathyroidism of renal origin. CONSULT DURING HOSPITAL STAY: 1. General surgery, Satish Hancock MD. 2. Nephrology, Elissa Vieyra MD. 3. Cardiology, [place] Zelaya MD. 4. Pulmonary Critical Care, Arvind Najera MD and Abdelrahman Bear MD. STUDIES/PROCEDURES: 1. On 11/20/2018, laparoscopic cholecystectomy. 2. On 11/25/2018, right IJ hemodialysis catheter. HOSPITAL COURSE: Ms. Bearden is a 53-year-old female with end-stage renal disease , on hemodialysis, recently hospitalized for nausea/vomiting/abdominal discomfort, readmitted for the same. Evaluation undertaken, working diagnosis of acalculous cholecystitis. Initially noted to have hypotension, required ICU placement, surgical consultation. Underwent laparoscopic cholecystectomy on 11/20/2018. Postoperatively, continued to have difficulties with hypotension, eventually weaned from pressors by 11/25/2018. At that time, difficulty noted with hemodialysis access, plans were made for replacement access. On the evening of 11/25/2018, underwent an operative placement of right IJ hemodialysis catheter. In the postanesthesia care unit, Hospitalist Team notified regarding persistent hypotension. The patient required ICU placement, pressor support, subsequently continued to deteriorate, culminating in cardiac arrest. Please refer to chart notes, numerous attempts made for resuscitative efforts. Ultimately, in conjunction with her family, the patient was made do not resuscitate, and on 11/25/2018. Please see Dr. Israel's notes for exact time of . Job ID: [id number] MTDD
--- NOTE | 2018-11-30 07:55 | EKG ---
Test Reason : POST O Blood Pressure : / mmHG Vent. Rate : 090 BPM Atrial Rate : 090 BPM P-R Int : 202 ms QRS Dur : 080 ms QT Int : 372 ms P-R-T Axes : 063 124 012 degrees QTc Int : 455 ms Normal sinus rhythm Possible Right ventricular hypertrophy Abnormal ECG When compared with ECG of 19-NOV-2018 17:44, (Unconfirmed) Incomplete right bundle branch block is no longer Present Minimal criteria for Anteroseptal infarct are no longer Present Confirmed by LISA WOODALL (2) on 11/30/2018 7:54:48 AM Referred By: LISY Confirmed By:LISA WOODALL
== END 2018-11-25 23:15 | disposition expired | DRG 853 ==
LOC: ERS 17:35 → CCU 23:04 → SURG A 11-20 12:02 → CCU 11-20 19:31 → 2NO 11-25 16:10 → CCU 11-25 20:33
PROVIDERS: ADMIT Internal Medicine; ATTEND Internal Medicine
PROC: 0FT44ZZ Resection of Gallbladder, Percutaneous Endoscopic Approach (ICD-10-PCS; principal; 2018-11-21)
PROC: 06HN33Z Insertion of Infusion Device into Left Femoral Vein, Percutaneous Approach (ICD-10-PCS; 2018-11-21)
PROC: 0BH17EZ Insertion of Endotracheal Airway into Trachea, Via Natural or Artificial Opening (ICD-10-PCS; 2018-11-21)
PROC: 5A1945Z Respiratory Ventilation, 24-96 Consecutive Hours (ICD-10-PCS; 2018-11-21)
PROC: B50W1ZZ Plain Radiography of Dialysis Shunt/Fistula using Low Osmolar Contrast (ICD-10-PCS; 2018-11-24)
PROC: B50N1ZZ Plain Radiography of Left Upper Extremity Veins using Low Osmolar Contrast (ICD-10-PCS; 2018-11-24)
PROC: B5081ZZ Plain Radiography of Superior Vena Cava using Low Osmolar Contrast (ICD-10-PCS; 2018-11-24)
PROC: 0JH60XZ Insertion of Tunneled Vascular Access Device into Chest Subcutaneous Tissue and Fascia, Open Approach (ICD-10-PCS; 2018-11-25)
PROC: 05HM33Z Insertion of Infusion Device into Right Internal Jugular Vein, Percutaneous Approach (ICD-10-PCS; 2018-11-25)
PROC: B543ZZA Ultrasonography of Right Jugular Veins, Guidance (ICD-10-PCS; 2018-11-25)
PROC: 5A1D70Z Performance of Urinary Filtration, Intermittent, Less than 6 Hours Per Day (ICD-10-PCS; 2018-11-25)
DX: A41.9 Sepsis, unspecified organism (principal); N18.6 End stage renal disease; I21.A1 Myocardial infarction type 2; J95.821 Acute postprocedural respiratory failure; I12.0 Hypertensive chronic kidney disease with stage 5 chronic kidney disease or end stage renal disease; E87.2 Acidosis; E44.0 Moderate protein-calorie malnutrition; T82.590A Other mechanical complication of surgically created arteriovenous fistula, initial encounter; N25.81 Secondary hyperparathyroidism of renal origin; K81.0 Acute cholecystitis; Z66 Do not resuscitate; Z99.2 Dependence on renal dialysis; Z90.49 Acquired absence of other specified parts of digestive tract; Z88.8 Allergy status to other drugs, medicaments and biological substances; M32.0 Drug-induced systemic lupus erythematosus; T38.0X5A Adverse effect of glucocorticoids and synthetic analogues, initial encounter; J45.20 Mild intermittent asthma, uncomplicated; G89.4 Chronic pain syndrome; E78.5 Hyperlipidemia, unspecified; D63.1 Anemia in chronic kidney disease; I27.20 Pulmonary hypertension, unspecified; I69.332 Monoplegia of upper limb following cerebral infarction affecting left dominant side; Z91.14 Patient's other noncompliance with medication regimen; I07.1 Rheumatic tricuspid insufficiency; I35.0 Nonrheumatic aortic (valve) stenosis; R60.9 Edema, unspecified; I95.81 Postprocedural hypotension; E86.0 Dehydration
CPT/HCPCS: 36415; 36416; 36430; 36901; 71045; 74176; 76705; 80048; 80053; 80076; 82533; 82550; 82553; 82805; 83605; 83690; 83880; 84484; 85025; 85610; 85730; 86850; 86900; 86901; 87040; 88304; 93005; 93010; 93306; 94002; 94003; 94640; 96361; 96365; 96375; 96376; C1752; C1769; C9113; J0131; J0171; J0670; J1200; J1610; J1644; J1720; J1815; J1885; J2001; J2250; J2270; J2405; J2543; J2704; J2997; J3010; J3370; J3480; J3490; J7070; J7512; J7611; J7620; P9016; P9045; P9047; Q0163; Q0169